=== PATIENT | female | born 1990 | race Caucasian/White ===

== ENCOUNTER 2019-03-25 15:09 | Emergency (ER) | payer MEDICAID, SELFPAY ==
--- NOTE | 2019-03-25 15:18 | ED.GENADULT ---
HPI - General Adult General Chief complaint: Dental/Oral Stated complaint: Toothache Time Seen by Provider: 03/25/19 15:26 Source: patient and family Mode of arrival: ambulatory Limitations: no limitations History of Present Illness HPI narrative: Patient's had onset of left lower second tooth pain that began last night. It is been sensitive to heat and cold. Is been no drainage from around the tooth. The gum tissue is appeared swollen to her. She has not had any swelling of the cheek. She denies any ear pain or drainage from the ears. She had no nasal drainage or sore throat. She has had no nausea, no vomiting, no diarrhea. She is taken [id number] Aleve without improvement and ibuprofen without improvement. She has not scheduled a dental appointment yet. She has had no cough. She has had no urinary symptoms. She has had no known exposure to anyone with respiratory infections that she is aware of. Related Data Allergies Allergy/AdvReac Type Severity Reaction Status Date / Time bee venom protein (honey bee) Allergy Unknown Swelling Verified 03/25/19 15:14 corn Allergy Unknown Rash Verified 03/25/19 15:14 Review of Systems Review of Systems: Narrative: CONSTITUTIONAL: Denies fever, chills, or sweats. Noncontributory except as pertains to the past medical history and the history of present illness. EYES: Denies visual changes, redness, or discharge. ENT: Denies rhinorrhea, congestion, sore throat, or otalgia. CARDIOVASCULAR: Denies chest pain, palpitations, or edema. RESPIRATORY: Denies cough or dyspnea. GASTROINTESTINAL: Denies abdominal pain, nausea, vomiting, or diarrhea. GENITOURINARY: Denies dysuria or hematuria. SKIN: Denies rash or itching. MUSCULOSKELETAL: Denies back pain, joint pain, or myalgia. NEUROLOGIC: Denies headache, numbness, or weakness. PSYCHIATRIC: Denies anxiety or depression. [facility] Social History Social History Smoking packs per day: 1 Smoking cigarettes per day: 20.0 Years smoked: 14 Smoking pack-years: 14.00 Smoking status: Current every day smoker Tobacco type: cigarettes Second hand tobacco smoke exposure: Yes Alcohol intake: current Substance use: never Gender identity (if verbalized by the patient): Female Comments At time of signature, I have reviewed and agree with nursing past medical, surgical, social, and family history.Please see nursing chart for further information. There is no relevant family history pertinent to the presenting complaint. Exam Narrative: Exam Narrative: GENERAL: Well-appearing, well-nourished, and in no acute distress. HEAD: Normocephalic, atraumatic. EYES: PERRLA and EOMI. EARS: TM's clear bilaterally and the canals are clear. NOSE: Nares clear, no rhinorrhea or epistaxis. THROAT:Mucous membranes moist.Oropharynx normal without erythema or exudates.There are no TMJ clicks, no palpation tenderness of the TMJs.No lesions in the floor of the mouth. There is no clicking, locking, or popping of the TMJs. There is full excursion of the TMJs. Patient has carious teeth the left lower second molar is partially decayed and is tender to percussion. The other teeth are nontender to percussion. The gums surrounding that tooth is mildly erythematous, mildly swollen, but not draining. The rest of the gum tissue appears normal. NECK: Supple. No adenopathy of the neck, supraclavicular, axillary, inguinal areas RESPIRATORY: No respiratory distress. Airway patent. Respirations non-labored. Clear to auscultation. There are no wheezes, no rales, no retractions, and no use accessory muscle respirations. Patient is not cyanotic and not dyspneic. HEART: Regular rate and rhythm. No murmur heard. Normal peripheral pulses. ABDOMEN: Soft, nontender, nondistended, normal active bowel sounds.No masses. No rebound or guarding, No organomegaly. There is no CVA pain. No pain in McBurney's point. Patient has a negativ
[2019-03-25 15:19] VITALS: BP 138/89; PULSE 109; RESP 18; TEMP 36.9; O2SAT 100
== END 2019-03-25 15:40 | disposition home or self-care (01) ==
PROVIDERS: Emergency Provider Family Medicine
DX: K08.89 Other specified disorders of teeth and supporting structures (principal); F17.210 Nicotine dependence, cigarettes, uncomplicated
CPT/HCPCS: 99213; G0463

== ENCOUNTER 2019-04-21 19:25 | Emergency (ER) | payer MEDICAID, SELFPAY ==
[2019-04-21 19:33] VITALS: BP 131/87; PULSE 99; RESP 16; O2SAT 98
--- NOTE | 2019-04-21 19:39 | ED.DENTAL ---
HPI - Dental/Oral General Chief complaint: Dental/Oral Stated complaint: Toothache Time Seen by Provider: 04/21/19 19:39 Source: patient and RN notes reviewed Mode of arrival: ambulatory Limitations: no limitations History of Present Illness Complaint: tooth pain Location: Tooth # (19) Related Data Allergies Allergy/AdvReac Type Severity Reaction Status Date / Time bee venom protein (honey bee) Allergy Mild Swelling Verified 04/21/19 19:30 corn Allergy Mild Rash Verified 04/21/19 19:30 Review of Systems Review of Systems: Narrative: CONSTITUTIONAL: Denies malaise, chills, sweats, or fever. EYES: Denies visual changes, redness, or discharge. ENT: Denies rhinorrhea, congestion, sinus pain, otalgia or sore throat. Reports left lower dental pain CARDIOVASCULAR: Denies chest pain, palpitations, or edema. RESPIRATORY: Denies cough or dyspnea. GASTROINTESTINAL: Denies abdominal pain, nausea, vomiting SKIN: Denies facial swelling MUSCULOSKELETAL: Denies myalgia. NEUROLOGIC: Denies headache. All systems reviewed & are unremarkable except as noted in HPI and below PMFSH Social History Social History Smoking packs per day: 1 Smoking cigarettes per day: 20.0 Years smoked: 14 Smoking pack-years: 14.00 Smoking status: Current every day smoker Tobacco type: cigarettes Second hand tobacco smoke exposure: Yes Alcohol intake: current Substance use: never Gender identity (if verbalized by the patient): Female Comments At time of signature, agree with nursing past medical, surgical, social and family history. There is no relevant family history pertinent to the presenting complaint Exam Narrative: Exam Narrative: GENERAL: Well-appearing, well-nourished, and in no acute distress. HEAD: Normocephalic, atraumatic. EYES: PERRLA, conjunctivae clear, and EOMI. No nystagmus. ENT: Nares clear, no rhinorrhea or epistaxis. Mucous membranes moist. Oropharynx without erythema edema, or lesions. No drooling noted. Many missing teeth, broken teeth, caries tooth #19 broken without surrounding edema or erythema. No periapical abscess noted, no jaw facial swelling noted NECK: Supple. CHEST: No respiratory distress. Speaks in full sentences. HEART: Regular rate and rhythm. SKIN: Warm, dry NEURO: Alert and oriented x3 PSYCH: Normal mood and affect Course Course Emergency Course: Patient is aware of diagnosis, understands and agrees to treatment plan. Anticipatory guidance given. Patient agrees to follow-up as directed and is aware of reasons to seek care at the emergency department. Portions of this record may have been created with voice recognition software Vital Signs Vital signs: Vital Signs Pulse Rate 99 04/21/19 19:33 Respiratory Rate 16 04/21/19 19:33 Blood Pressure 131/87 04/21/19 19:33 Pulse Oximetry 98 04/21/19 19:33 Pulse Rate 99 04/21/19 19:33 Respiratory Rate 16 04/21/19 19:33 Blood Pressure 131/87 04/21/19 19:33 Pulse Oximetry 98 04/21/19 19:33 Reviewed. Patient has been instructed to follow up with her primary care provider within the next week regarding her elevated blood pressure today. MDM - Dental/Oral MDM Narrative Medical decision making narrative: Patients pain and complaint coupled with physical findings are consistant with dentalgia. There are no focal signs of space occupying lesions that are compromising to the airway; no dysphagia, odynophagia, dysphonia, or dyspnea. No uvular deviation or soft palate edema. Patient is non-toxic appearing. The floor of the mouth is soft with no signs of Momo's Angina; no induration below mandible, no neck pain. Patient is without trismus or drooling and able to swallow secretions. Patient is felt appropriate for discharge home with dental follow up. Critical Care Time Critical Care Time Critical Care Time: No Discharge Plan Discharge Clinical Impression: Tooth
== END 2019-04-21 19:54 | disposition home or self-care (01) ==
PROVIDERS: Emergency Provider Nurse Practitioner
DX: K08.89 Other specified disorders of teeth and supporting structures (principal); F17.210 Nicotine dependence, cigarettes, uncomplicated
CPT/HCPCS: 99213; G0463

== ENCOUNTER 2019-11-07 15:39 | Emergency (ER) | payer OTHER, SELFPAY ==
--- NOTE | 2019-11-07 15:41 | ED.EXTPRO ---
HPI - Extremity Problem General Chief complaint: Extremity Problem,Nontraumatic Stated complaint: right wrist pain Time Seen by Provider: 11/07/19 15:50 Source: patient and RN notes reviewed Mode of arrival: ambulatory Limitations: no limitations History of Present Illness HPI Narrative: 29-year-old female presents with concern for pain to the right wrist extending up to the elbow, exacerbated by gripping, movement. 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 She denies injury, trauma. 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 She denies redness, swelling, bruising Complaint: extremity pain Related Data Allergies Allergy/AdvReac Type Severity Reaction Status Date / Time bee venom protein (honey bee) Allergy Mild Swelling Verified 11/07/19 15:43 corn Allergy Mild Rash Verified 11/07/19 15:43 Review of Systems Review of Systems: Narrative: CONSTITUTIONAL: Denies malaise, chills, sweats, or fever. ARDIOVASCULAR: Denies chest pain, palpitations, or edema. RESPIRATORY: Denies cough or dyspnea. SKIN: Denies bruising, redness, swelling MUSCULOSKELETAL: Reports right wrist, elbow pain, reports decreased catering server strength NEUROLOGIC: Denies numbness, weakness All systems reviewed & are unremarkable except as noted in HPI and below PMFSH Social History Social History Smoking packs per day: 1 Smoking cigarettes per day: 20.0 Years smoked: 14 Smoking pack-years: 14.00 Smoking status: Current every day smoker Tobacco type: cigarettes Second hand tobacco smoke exposure: Yes Alcohol intake: current Substance use: never Gender identity (if verbalized by the patient): Female Comments At time of signature, agree with nursing past medical, surgical, social and family history. There is no relevant family history pertinent to the presenting complaint Exam Narrative: Exam Narrative: GENERAL: Well-appearing, well-nourished, and in no acute distress. HEAD: Normocephalic, atraumatic. EYES: PERRLA, conjunctivae clear NECK: Supple. CHEST: Speaks in full sentences. No respiratory distress. HEART: Regular rate and rhythm. Normal and equal peripheral pulses. EXTREMITIES: Right elbow, wrist, digits have normal sensation, normal range of motion. No edema or ecchymosis. 5/5 strength with elbow and wrist flexion and extension. Decreased right catering server strength. Normal sensation with sensitivity to light touch and pain. No open wounds, no skin tenting, no devitalized tissue or atrophy, no trophic changes, no obvious deformity, alignment normal, no point tenderness, nearby joints and structures intact. Distal pulses palpable and equal bilaterally, skin warm, dry, pink. Capillary refill less than 3 seconds. SKIN: Warm, dry, no rash. NEURO: Alert and oriented x3. PSYCH: Normal mood and affect Course Course Emergency Course: Patient is aware of diagnosis, understands and agrees to treatment plan. Anticipatory guidance given. Patient agrees to follow-up as directed and is aware of reasons to seek care at the emergency department. Portions of this record may have been created with voice recognition software Vital Signs Vital signs: Vital Signs Temperature 98.7 F 11/07/19 15:47 Pulse Rate 110 H 11/07/19 15:47 Respiratory Rate 16 11/07/19 15:47 Blood Pressure 118/81 11/07/19 15:47 Pulse Oximetry 99 11/07/19 15:47 Temperature 98.7 F 11/07/19 15:47 Pulse Rate 110 H 11/07/19 15:47 Respiratory Rate 16 11/07/19 15:47 Blood Pressure 118/81 11/07/19 15:47 Pulse Oximetry 99 11/07/19 15:47 Reviewed. MDM - Extremity (Nontraumatic) MDM Narrative Medical decision making narrative: Patients pain is consistent with musculoskeletal etiology. No signs of neurological or vascular compromise on exam. Compartments and tissues are soft without signs of compartment syndrome. Pain is felt appropriate for further evaluation on an outpatient basis. Scott
[2019-11-07 15:47] VITALS: BP 118/81; PULSE 110; RESP 16; TEMP 37.1; O2SAT 99
== END 2019-11-07 16:07 | disposition home or self-care (01) ==
PROVIDERS: Emergency Provider Nurse Practitioner
DX: M77.11 Lateral epicondylitis, right elbow (principal); F17.210 Nicotine dependence, cigarettes, uncomplicated
CPT/HCPCS: 99213; G0463

== ENCOUNTER 2019-12-30 17:55 | Emergency (ER) | payer OTHER, SELFPAY ==
[2019-12-30 18:00] VITALS: BP 110/73; PULSE 116; RESP 18; TEMP 37.4; O2SAT 100
--- NOTE | 2019-12-30 18:15 | ED.FEMALEGU ---
HPI - Female Genitourinary General Chief complaint: Urogenital-Female Stated complaint: Blood In Urine Time Seen by Provider: 12/30/19 18:16 Source: patient Mode of arrival: ambulatory Limitations: no limitations History of Present Illness HPI Narrative: Dominique Vazquez is a 29 yo female with tendonitis, ovarian cyst, who comes with blood in her urine that started this AM. No pain, no odor, stated had a little burning on the way to work and noted that when she went to the bathroom the blood is definitely from her urethra Related Data Home Medications Medication Instructions Recorded Confirmed celecoxib 200 mg PO DAILY 12/30/19 12/30/19 fluconazole 200 mg PO DIRECTED 12/30/19 12/30/19 ketoconazole 2 applic TOPICAL BID 12/30/19 12/30/19 Allergies Allergy/AdvReac Type Severity Reaction Status Date / Time bee venom protein (honey bee) Allergy Mild Swelling Verified 12/30/19 18:01 corn Allergy Mild Rash Verified 12/30/19 18:01 Review of Systems Review of Systems: Narrative: CONSTITUTIONAL: Denies fever, chills, sweats. EYES: Denies visual changes, redness, discharge. ENT: Denies rhinorrhea, congestion, sore throat, otalgia. CARDIOVASCULAR: Denies chest pain, palpitations, edema. RESPIRATORY: Denies dyspnea, wheezing, cough GASTROINTESTINAL: Denies abdominal pain, nausea, vomiting, diarrhea. GENITOURINARY: Denies dysuria, has hematuria, no abnormal discharge SKIN: Denies rash or itching. NEUROLOGIC: Denies numbness, or focal weakness. PSYCHIATRIC: Denies anxiety or depression. [facility] Past Medical History Medical History (Updated 12/30/19 @ 18:25 by Sunshine Braden CNP) ADHD Depression History of blood transfusion IBS (irritable bowel syndrome) Kidney stones Ovarian cyst hemorrhage UTI (urinary tract infection) Surgical History Surgical History History of section History of tubal ligation Social History Social History Smoking packs per day: 1 Smoking cigarettes per day: 20.0 Years smoked: 14 Smoking pack-years: 14.00 Smoking status: Current every day smoker Tobacco type: cigarettes Second hand tobacco smoke exposure: Yes Alcohol intake: current Substance use: never Gender identity (if verbalized by the patient): Female Comments At time of signature, I agree with nursing past medical, surgical, social and family history. There is no relevant family history pertinent to the presenting complaint. Exam Narrative: Exam Narrative: GENERAL: This is a well-nourished, well-developed patient, in mild distress. HEAD: normocephalic, atraumatic. EYES: Sclera clear/white. Vision is grossly intact. EARS: External ears normal, Hearing grossly intact. NOSE: External nose normal without nasal discharge, nares without redness, no rhinorrhea. THROAT: Mucous membranes moist, NECK: Neck supple, CARDIOVASCULAR: Regular rate and rhythm without murmurs, gallops, or rubs. RESPIRATORY: Clear to auscultation. Breath sounds equal bilaterally. No wheezes, rales, or rhonchi. GASTROINTESTINAL: Abdomen soft, SKIN: warm, intact with no suspicious lesions or rash, good texture and turgor. NEURO: awake, alert, and oriented to person, place and time. There were no obvious focal neurologic abnormalities. Steady gait EXTREMITIES: Normal range of motion. BACK: Nontender without deformity Course Course Emergency Course: This morning woke up and was feeling fine but admitted a couple hours started having some burning in the urethral area and there is some blood in her urine she then developed frequency over the afternoon and came here for treatment Urine dipstick was positive for blood and for leukocyte esterase-started on Keflex and told patient to hydrate well Vital Signs Vital signs: Vital Signs Temperature 99.3 F 12/30/19 18:00 Pulse Rate 116 H 12/30/19 18:00 Respiratory
== END 2019-12-30 18:30 | disposition home or self-care (01) ==
PROVIDERS: Emergency Provider Nurse Practitioner
DX: N30.01 Acute cystitis with hematuria (principal); F17.210 Nicotine dependence, cigarettes, uncomplicated
CPT/HCPCS: 81003; 87086; 87088; 99213; G0463

== ENCOUNTER 2020-02-01 00:42 | Outpatient (CLI) | payer OTHER, SELFPAY ==
[2020-02-01 18:51] LABS: SARS-CoV-2 RNA PCR Negative
== END 2020-02-01 00:43 | disposition home or self-care (01) ==
LOC: ANHCOVIDDT 00:44
PROVIDERS: Visit Provider Obstetrics & Gynecology
DX: Z01.818 Encounter for other preprocedural examination (principal); Z20.828 Contact with and (suspected) exposure to other viral communicable diseases
CPT/HCPCS: 87635; C9803; U0003

== ENCOUNTER 2020-02-01 15:13 | Outpatient (CLI) | payer OTHER, SELFPAY | END 2020-02-01 15:14 | disposition home or self-care (01) | LOC: ANHSURGERY 15:18 | PROVIDERS: Visit Provider Obstetrics & Gynecology | DX: Z01.818 Encounter for other preprocedural examination (principal); R10.2 Pelvic and perineal pain | CPT/HCPCS: 36415; 86850; 86900; 86901; 87635; C9803; U0003 ==

== ENCOUNTER 2020-02-03 01:19 | Day surgery (SDC) | payer OTHER, SELFPAY ==
[2020-01-31 13:38] VITALS: BMI 27.9
[2020-02-03] VITALS (7 sets, daily range): BP systolic 100–139; BP diastolic 49–86; PULSE 68–132; RESP 14–20; TEMP 36.4–36.6; O2SAT 97–100
--- NOTE | 2020-02-03 08:16 | WPDANESEPP ---
Anes - Eval Pre Procedure Procedure: Operation Date: 02/03/20 14:00 Proposed Procedures p Diagnostic Laparoscopy - Julianne Ellis MD Date/Time: 02/03/20 08:16 Pre Op Diagnosis: pelvic pain Patient Data Age: 29 Gender: F Height: 1.63 m Weight: 73.94 kg Allergies Allergy/AdvReac Type Severity Reaction Status Date / Time bee venom protein (honey bee) Allergy Mild Swelling Verified 01/31/20 12:01 corn Allergy Unknown Rash/THROAT Verified 01/31/20 12:01 SWELLING Home Medications Medication Instructions Recorded Confirmed Type hydrocodone-acetaminophen 1 tablet PO Q4-6H PRN 01/31/20 01/31/20 History tramadol 50 mg PO PRN PRN 01/31/20 01/31/20 History Patient hx anesthesia problems: none Family hx anesthesia problems: none PMFSH Past Medical History Medical History ADHD Depression History of blood transfusion IBS (irritable bowel syndrome) Kidney stones Ovarian cyst hemorrhage UTI (urinary tract infection) Surgical History Surgical History History of section History of tubal ligation Social History Social History Smoking packs per day: 1 Smoking cigarettes per day: 20.0 Years smoked: 14 Smoking pack-years: 14.00 Smoking status: Current every day smoker Tobacco type: cigarettes Second hand tobacco smoke exposure: Yes Alcohol intake: current Substance use: current Substance use type: marijuana Living arrangements: with family Gender identity (if verbalized by the patient): Female Spiritual care concerns: No Exam Day of Procedure 02/03/20 08:16
[2020-02-03] MEDS: LACTATED RINGERS 1,000 ML 30 ML IV CONT ×2 (14:05→16:33)
[2020-02-03] MEDS: ACETAMINOPHEN 500 MG TABLET 1000 MG PO (14:05)
[2020-02-03] MEDS: KETOROLAC 15 MG/ML VIAL (*BKC) IV PUSH (14:05)
[2020-02-03] MEDS: fentaNYL CITRATE INJ (*CRX) 100 MCG/2 ML VIAL 25 MCG IV PUSH ×9 (14:05→17:04)
--- NOTE | 2020-02-03 14:15 | WPDANESEFPP ---
Anes - Eval Final PreProcedure Day of Procedure 02/03/20 14:15 Patient weight: overweight Heart: regular rate and rhythm Lungs: clear to auscultation and normal air movement Airway: Mallampati scale class II Neurological: alert and oriented Last oral intake: >/= 8 hours ASA classification: III Emergent: no Anesthetic plan: proceed Anesthesia type and monitoring: general ETT Informed Consent: The patient's anesthetic plan and its attendant risks and benefits were discussed with the patient/family/POA. Questions were solicited and answers provided to the satisfaction of the patient/family/POA.
--- NOTE | 2020-02-03 14:42 | WPDHPUPDATE1 ---
History and Physical Update Update Date/Time: 02/03/20 14:42 History and Physical has been reviewed, including an updated exam of the patient. There are NO changes in the patient's condition. Risks, benefits, and alternatives have been discussed and questions answered. Patient agrees to proceed with procedure.
--- NOTE | 2020-02-03 16:21 | P.OP_ITS ---
Procedure Note - Detailed Date of procedure: 02/03/20 Pre-op diagnosis: pelvic pain Procedure performed: Diagnostic laparoscopy, left ovarian cystectomy, right salpingo-oophorectomy. Description of procedure: The patient was taken the operating room. She was prepped and draped in the dorsal lithotomy position after induction of general anesthesia. A 5 mm left upper quadrant incision was made in the abdominal skin with a scalpel. A 5 mm trocar was inserted the intra-abdominal cavity under direct visualization of the scope. A 11 mm left lower quadrant incision was made with the scalp on the abdominal skin and a 11 mm trocar was inserted the intra-abdominal cavity under direct visualization of the scope. A 5 mm infraumbilical incision was made with scalpel and a 5 mm trocar was inserted into the intra-abdominal cavity under direct visualization of the scope. The pelvis examined. Right salpingo-oophorectomy was performed. The infundibulopelvic ligament was cauterized with bipolar cautery and transected. The para ovarian tissue was cauterized transected with bipolar cautery and scissors. The suspensory ligament the ovary cauterized transected in the same fashion as well as the fallopian tube. The ovary and tube were amputated and placed in endobag and taken at the left lower quadrant trocar site. Left ovarian cystectomy was performed. Incision was made in the cyst. The cyst capsule was peeled out. The cut surfaces were cauterized. Hematoma derm was placed inside the cyst cavity. The left lower quadrant trocar site was closed with an 0 Vicryl using a Davion-Jolanta Endo Close. The pelvis was irrigated with copious amounts of normal saline. The pneumoperitoneum was reduced. The trocars were removed. The patient was taken recovery room stable condition. Sponge lap and needle counts were correct x2. Anesthesia: GETA Surgeon: Julianne Ellis MD Estimated blood loss (mL): 20 Drains: No Packing: No Complications: No immediate complications Condition: stable Disposition: PACU Findings: Normal appearing right ovary into. Cystic left ovary. Normal- appearing uterus
[2020-02-03] MEDS: oxyCODONE HCL (*CRX) 5 MG TAB IR PO (17:34)
== END 2020-02-03 18:00 | disposition home or self-care (01) ==
PROVIDERS: Visit Provider Obstetrics & Gynecology
PROC: (CPT 49320; principal; 2020-02-03 14:00)
DX: R10.2 Pelvic and perineal pain (principal); N83.12 Corpus luteum cyst of left ovary; N83.8 Other noninflammatory disorders of ovary, fallopian tube and broad ligament; F17.210 Nicotine dependence, cigarettes, uncomplicated; F12.90 Cannabis use, unspecified, uncomplicated
CPT/HCPCS: 58661; 58662; 88305; A9270; J0330; J1100; J1170; J1885; J2250; J2405; J2704; J3010; J7120

== ENCOUNTER 2020-05-26 10:27 | Emergency (ER) | payer OTHER, SELFPAY ==
[2020-05-26 10:46] VITALS: BP 117/78; PULSE 106; RESP 16; TEMP 36.2; O2SAT 98
--- NOTE | 2020-05-26 10:51 | ED.NAVMDI ---
HPI - Nausea/Vomiting/Diarrhea General Chief complaint: Nausea/Vomiting/Diarrhea Stated complaint: vomiting/diarrhea Time Seen by Provider: 05/26/20 10:51 Source: patient, RN notes reviewed and old records reviewed Mode of arrival: ambulatory Limitations: no limitations History of Present Illness HPI Narrative: 29 year old female who presents to express care with complaints of nausea with vomiting and diarrhea which started on Friday 4 days ago. Patient does have some right upper quadrant abdominal discomfort and states pain to mid abdomen region which started after vomiting. Patient states that she vomited this morning and has also had watery foul smelling diarrhea stools today. denies any fevers since Friday evening which was 101.2 F. Patient states no burning or pain with urination, denies any suprapubic pain or any flank pain.She reports that she has been drinking Pedialyte and eating popsicles, had a few bites of soup since Friday, does feel a little bit better today. Patient states that she does have history of IBS. MD elicited complaint: nausea, vomiting and diarrhea Onset (ago): day(s) (4) Description of vomiting: watery and bilious Description of diarrhea: watery and other (foul smelling) Associated nausea: Yes Associated abdominal pain: Yes Location of pain: RUQ and other (mid abdomen after vomiting or after diarrhea) Radiation: RUQ and does not radiate Pain consistency: intermittent Pain scale (0-10): 5 Quality: aching Exacerbating factors: bowel movement and vomiting Associated symptoms: fever/chills and loss of appetite Treatment prior to arrival: other (nprosyn) Related Data Allergies Allergy/AdvReac Type Severity Reaction Status Date / Time bee venom protein (honey bee) Allergy Mild Swelling Verified 02/03/20 14:11 corn Allergy Unknown Rash/THROAT Verified 02/03/20 14:11 SWELLING Review of Systems Review of Systems: Narrative: CONSTITUTIONAL:Positive for fever, chills, or sweats on Friday none since EYES: Denies visual changes, redness, or discharge. ENT: Denies rhinorrhea, congestion, sore throat, or otalgia. CARDIOVASCULAR: Denies chest pain, palpitations, or edema. RESPIRATORY: Denies cough or dyspnea. GASTROINTESTINAL: Positive for right upper quadrant and mid abdominal pain, nausea, vomiting, or diarrhea, denies any burning with urination or any flank pain.. GENITOURINARY: Denies dysuria or hematuria. SKIN: Denies rash or itching. MUSCULOSKELETAL: Denies back pain, joint pain, or myalgia. NEUROLOGIC: Denies headache, numbness, or weakness. PSYCHIATRIC: Positive history of anxiety or depression. All systems reviewed & are unremarkable except as noted in HPI and below PMFSH Past Medical History Medical History (Updated 05/27/20 @ 00:00 by Kelly Orellana) ADHD Depression History of blood transfusion IBS (irritable bowel syndrome) Kidney stones Ovarian cyst hemorrhage UTI (urinary tract infection) Surgical History Surgical History (Updated 05/27/20 @ 15:31 by Jeri Butler NP) History of section History of right salpingo-oophorectomy History of tubal ligation Hx of hand surgery tendon repair left hand Family History Family History (Updated 05/27/20 @ 15:28 by Jeri Butler NP) Grandparent Cancer lung grandfather Social History Social History Smoking packs per day: 1 Smoking cigarettes per day: 20.0 Years smoked: 14 Smoking pack-years: 14.00 Smoking status: Current every day smoker Tobacco type: cigarettes Second hand tobacco smoke exposure: Yes Alcohol intake: current Substance use: current Substance use type: marijuana Gender identity (if verbalized by the patient): Female Spiritual care concerns: No Comments At time of signature, agree with nursing past medical, surgical, social and family history. There is no relevant family history pertinent to the presenti
== END 2020-05-26 12:11 | disposition home or self-care (01) ==
PROVIDERS: Emergency Provider Registered Nurse
DX: K21.9 Gastro-esophageal reflux disease without esophagitis (principal); Z20.822 Contact with and (suspected) exposure to COVID-19; F17.210 Nicotine dependence, cigarettes, uncomplicated
CPT/HCPCS: 87081; 87426; 87804; 87880; 99213; C9803; G0463

== ENCOUNTER 2020-07-01 12:44 | Emergency (ER) | payer OTHER, SELFPAY ==
--- NOTE | ~2020-07-01 | US_ITS ---
EXAMINATION: US pelvic complete w TV DATE: 07/01/2020 16:45 INDICATION: Left ovarian cyst. TECHNIQUE: Multiple transabdominal and transvaginal sonographic images of the pelvis were obtained. COMPARISON: CT abdomen and pelvis 07/01/2020 FINDINGS: TRANSABDOMINAL ULTRASOUND: The uterus measures 10.6 x 6.3 x 4.2 cm. There is no free fluid in the pelvis. TRANSVAGINAL ULTRASOUND: The endometrial complex measures 11 mm in thickness. The right ovary is absent. The left ovary measur es 3.9 x 4.5 x 3.9 cm. There is vascular flow in left ovary. IMPRESSION: 1. Enlarged left ovary with vascular flow. Reviewed, dictated and finalized at location A.
--- NOTE | ~2020-07-01 | CT_ITS ---
EXAMINATION: CT abdomen pelvis w con DATE: 07/01/2020 14:26 INDICATION: Left lower quadrant abdominal pain. TECHNIQUE: Computed tomography (CT) of the abdomen and pelvis was performed with 100 mL Omnipaque 350 intravenous contrast. Automated exposure control and iterative reconstruction technique were employe d. The dose-length product was 360.95 mGy-cm. COMPARISON: CT abdomen and pelvis 01/02/2019 FINDINGS: The visualized portions of the lung bases demonstrate minimal atelectasis. No pleural effus ion. The heart size is normal. No pericardial effusion. The liver, gallbladder, spleen, pancreas, and adrenal glands are normal. There are cysts in right kidney measuring up to 6 mm. There is a 3 mm sto ne in left kidney. There is a 3.9 cm mass in left ovary. There are no dilated loops of bowel. The pete endix is normal. There are no pathologically enlarged lymph nodes. There is trace pelvic ascites. The bones are unremarkable. IMPRESSION: 1. 3.9 cm mass in left ovary, most likely a hemorrhagic cyst. Pelvis ultrasound is recommended. Reviewed, dictated and finalized at location A.
[2020-07-01 12:47] VITALS: BP 118/99; PULSE 125; RESP 20; TEMP 36.7; O2SAT 100
--- NOTE | 2020-07-01 13:14 | ED.ABDPAIN ---
HPI - Abdominal Pain General Chief Complaint: Abdominal Pain Stated Complaint: L ABD PAIN Time Seen by Provider: 07/01/20 12:55 Source: patient and RN notes reviewed Mode of arrival: ambulatory Limitations: no limitations History of Present Illness HPI narrative: Patient is 29 years old white female presents with left lower quadrant pain started 3 days ago, constant, worse with movement. Patient denies any fever, chills, nausea, vomiting, diarrhea, constipation. Last menstrual. Was 2 days ago. Patient is 4 para 3 1. History of cystic ovarian disease, status post right oophorectomy January 2020. Patient reported having the same kind of pain as she had in January for the right ovarian cyst. Patient is a smoker, drinks occasionally, uses marijuana intermittently. Patient denies radiation of pain, no Covid infection or vaccine. Related Data Allergies Allergy/AdvReac Type Severity Reaction Status Date / Time bee venom protein (honey bee) Allergy Mild Swelling Verified 02/03/20 14:11 corn Allergy Unknown Rash/THROAT Verified 02/03/20 14:11 SWELLING Review of Systems Review of Systems: Narrative: CONSTITUTIONAL: Denies fever, chills, or sweats. EYES: Denies visual changes, redness, or discharge. ENT: Denies rhinorrhea, congestion, sore throat, or otalgia. CARDIOVASCULAR: Denies chest pain, palpitations, or edema. RESPIRATORY: Denies cough or dyspnea. GASTROINTESTINAL: Denies abdominal pain, nausea, vomiting, or diarrhea. GENITOURINARY: Denies dysuria or hematuria. SKIN: Denies rash or itching. MUSCULOSKELETAL: Denies back pain, joint pain, or myalgia. NEUROLOGIC: Denies headache, numbness, or weakness. PSYCHIATRIC: Denies anxiety or depression. [facility] Past Medical History Medical History ADHD Depression History of blood transfusion IBS (irritable bowel syndrome) Kidney stones Ovarian cyst hemorrhage UTI (urinary tract infection) Surgical History Surgical History History of section History of right salpingo-oophorectomy History of tubal ligation Hx of hand surgery tendon repair left hand Family History Family History Grandparent Cancer lung grandfather Social History Social History Smoking packs per day: 1 Smoking cigarettes per day: 20.0 Years smoked: 14 Smoking pack-years: 14.00 Smoking status: Current every day smoker Tobacco type: cigarettes Second hand tobacco smoke exposure: Yes Alcohol intake: current Substance use: current Substance use type: marijuana Gender identity (if verbalized by the patient): Female Spiritual care concerns: No Exam Narrative: Exam Narrative: General appearance: Well-developed, well-nourished Skin: Normal color Head: Normocephalic, nontraumatic Eyes: Clear conjunctiva ENT: Oropharynx normal, ears normal, nose normal Neck: Supple, nontender Chest and respiratory: Airway patent, no respiratory distress, no accessory muscle use Heart: Regular rate/rhythm Abdomen: Soft, moderate tenderness to left lower quadrant,, no organomegaly, quiet bowel sounds Vascular: Normal peripheral pulses, normal capillary refill. Musculoskeletal: Normal range of motion, nontender back Neurologic: Alert and oriented ?3, CORPORATE COORDINATOR is normal as tested, no gross motor deficit Course Course Emergency Course: Stable Reevaluation(s) Reevaluation #1: Patient feeling okay, declined to be hospitalized and telling me that she is planning to call Dr. Ellis on Mon
[2020-07-01 13:27] LABS: Basophils Percent Auto 0.4 % (0.2-1.2); Eosinophils Absolute Auto 0.1 K/mm3 (0-0.3); Eosinophils Percent Auto 1.3 % (0-4.4); Hematocrit 43.7 % (37.0-47.0); Hemoglobin 14.5 g/dL (12.0-15.0); Immature Granulocyte Absolute 0.01 K/mm3 (0.00-0.031); Immature Granulocyte Percent A 0.2 % (0-0.5); Lymphocytes Absolute Auto 1.93 K/mm3 (0.9-3.2); Lymphocytes Percent Auto 36.8 % (18.3-44.2); Mean Corpuscular HGB Conc 33.2 g/dl (32-36); Mean Corpuscular Hemoglobin 27.9 pg (26-34); Mean Platelet Volume 9.4 fl (7.4-10.4); Monocytes Absolute Auto 0.5 K/mm3 (0.1-0.6); Monocytes Percent Auto 9.9 % (2.6-8.5); Neutrophils Absolute Auto 2.7 K/mm3 (1.3-6.7); Neutrophils Percent Auto 51.4 % (45.5-73.1); Platelet Count Result 289 k/mm3 (150-375); Red Cell Distribution Width 12.8 % (11.5-14.5); White Blood Count 5.3 K/mm3 (4.5-10.0)
[2020-07-01] MEDS: ONDANSETRON INJ 4 MG/2 ML VIAL IV PUSH (13:35)
[2020-07-01] MEDS: HYDROmorphone HCL INJ (*CRX) 1 MG/ML SYR 0.5 MG IV PUSH (13:35)
[2020-07-01] MEDS: SODIUM CHLORIDE 0.9% IV 1,000 ML 999 ML IV CONT (13:35)
[2020-07-01 13:48] LABS: Add Urine Microscopic? YES; Appearance Urine Cloudy (Clear); Bacteria Urine Trace /hpf; Bilirubin Urine Negative (Negative); Blood Urine Negative (Negative); Color Urine Yellow (Yellow); Glucose Urine UA Negative (Negative); Ketones Urine Negative (Negative); Leukocyte Esterase Ur Negative LEU/UL (Negative); Mucus Urine Rare /lpf; Nitrate Urine Negative (Negative); Protein Urine 1+ mg/dL (Negative); RBC Urine 0-2 /hpf (0-2); Squamous Epithelial Cell Urine Many /hpf (Few); Urobilinogen Urine Negative mg/dL (<2.0); WBC Urine 0-3 /hpf
[2020-07-01 13:59] LABS: Alanine Aminotransferase 26 U/L (4-35); Albumin Level 4.5 g/dL (3.5-5.1); Alkaline Phosphatase 48 U/L (38-126); Anion Gap 8 mmol/L (8-16); Aspartate Amino Transferase 33 U/L (14-36); Bilirubin,Total 0.1 mg/dL (0.2-1.3); Blood Urea Nitrogen 14 mg/dL (7-17); Calcium 9.9 mg/dL (8.4-10.2); Carbon Dioxide 25 mmol/L (22-30); Chloride 108 mmol/L (98-107); Estimated CRCL calculation 87 ml/min; Estimated Glomerular Filt Rate > 60; Glucose 87 mg/dL (65-105); Lipase 34 U/L (23-300); Sodium 141 mmol/L (137-145)
[2020-07-01 14:50] VITALS: BP 142/74; PULSE 88; RESP 16; O2SAT 98
[2020-07-01] MEDS: KETOROLAC 30 MG/ML VIAL (*BKC) (15:45)
[2020-07-01 18:33] VITALS: BP 132/62; PULSE 88; RESP 14; O2SAT 99
== END 2020-07-01 18:33 | disposition home or self-care (01) ==
PROVIDERS: Emergency Provider Emergency Medicine
DX: N83.202 Unspecified ovarian cyst, left side (principal); K58.9 Irritable bowel syndrome, unspecified; Z87.442 Personal history of urinary calculi; Z87.440 Personal history of urinary (tract) infections
CPT/HCPCS: 36415; 74177; 76830; 76856; 80053; 81001; 83690; 85025; 96374; 96375; 99284; J1170; J1885; J2405; J7030; Q9967

== ENCOUNTER 2020-07-04 10:54 | Day surgery (SDC) | payer OTHER, SELFPAY ==
[2020-07-04] VITALS (12 sets, daily range): BP systolic 94–118; BP diastolic 51–75; PULSE 52–115; RESP 12–20; TEMP 36.9–37; O2SAT 94–100
--- NOTE | ~2020-07-04 | US_ITS ---
EXAMINATION: US pelvic complete DATE: 07/04/2020 12:27 INDICATION: Pelvic pain TECHNIQUE: Multiple transabdominal and endovaginal sonographic images of the pelvis were obtained. COMPARISON: None. FINDINGS: The uterus measures 7.6 x 4.6 x 6.2 cm. The endometrial complex measures 7 mm in thickness. The righ t ovary is not visualized and reportedly surgically absent The left ovary measures 5.2 x 3.9 x 4.6 cm . There is a 4.0 x 2.7 x 3.2 cm heterogeneously hypoechoic lesion in the left ovary. Vascular flow wa s seen in the left ovary around the periphery of the lesion which demonstrates no evident internal fl ow on power Doppler which favors complex cyst over solid neoplasm. There is no free fluid in the pelv is. IMPRESSION: 1. Indeterminate 4.0 cm left ovarian lesion with heterogeneous echogenicity but no evident internal f low on color Doppler. Differential would include complex hemorrhagic cyst, endometrioma, dermoid or l ess likely given the lack of evident internal flow ovarian cancer. Would consider either further eval uation with pre and postcontrast MRI or short interval follow-up pelvic ultrasound in 6-12 weeks. Reviewed, dictated and finalized at location A. IMPRESSION: 1. Indeterminate 4.0 cm left ovarian lesion with heterogeneous echogenicity but no evident internal flow on color Doppler. Differential would include complex hemorrhagic cyst, endometrioma, dermoid or less likely given the lack of eviden t internal flow ovarian cancer. Would consider either further evaluation with p re and postcontrast MRI or short interval follow-up pelvic ultrasound in 6-12 w eeks.
[2020-07-04 12:19] LABS: Basophils Percent Auto 0.3 % (0.2-1.2); Eosinophils Absolute Auto 0.1 K/mm3 (0-0.3); Eosinophils Percent Auto 1.1 % (0-4.4); Hematocrit 42.1 % (37.0-47.0); Immature Granulocyte Absolute 0.03 K/mm3 (0.00-0.031); Immature Granulocyte Percent A 0.4 % (0-0.5); Lymphocytes Absolute Auto 1.94 K/mm3 (0.9-3.2); Lymphocytes Percent Auto 25.5 % (18.3-44.2); Mean Corpuscular HGB Conc 33.3 g/dl (32-36); Mean Corpuscular Hemoglobin 27.5 pg (26-34); Mean Corpuscular Volume 82.7 fl (80-100); Mean Platelet Volume 9.3 fl (7.4-10.4); Monocytes Absolute Auto 0.6 K/mm3 (0.1-0.6); Monocytes Percent Auto 7.8 % (2.6-8.5); Neutrophils Absolute Auto 4.9 K/mm3 (1.3-6.7); Neutrophils Percent Auto 64.9 % (45.5-73.1); Platelet Count Result 277 k/mm3 (150-375); Red Blood Count 5.09 M/mm3 (4.2-5.4); Red Cell Distribution Width 12.5 % (11.5-14.5); White Blood Count 7.6 K/mm3 (4.5-10.0)
[2020-07-04 12:29] LABS: Anion Gap 7 mmol/L (8-16); Blood Urea Nitrogen 16 mg/dL (7-17); Carbon Dioxide 23 mmol/L (22-30); Chloride 106 mmol/L (98-107); Estimated CRCL calculation 114 ml/min; Estimated Glomerular Filt Rate > 60; Glucose 120 mg/dL (65-105); Potassium 4.1 mmol/L (3.4-5.0); Sodium 136 mmol/L (137-145)
[2020-07-04 12:32] LABS: INR 0.9; Prothrombin Time 12.6 Seconds (11.1-14.7)
[2020-07-04 12:33] LABS: Partial Thromboplastin Time 24.9 SECONDS (22.3-36.8)
--- NOTE | 2020-07-04 13:04 | ED.ABDPAIN ---
HPI - Abdominal Pain General Chief Complaint: Abdominal Pain Stated Complaint: abd pain, ovarian cyst Time Seen by Provider: 07/04/20 12:59 History of Present Illness HPI narrative: Patient is a 29-year-old female has been having pain from an ovarian cyst. Was diagnosed several days ago. She followed up with gynecology yesterday. There is concerned that patient may be having intermittent torsion since she has had persistent pain despite taking tramadol. No fevers or chills or sweats. She denies vaginal bleeding or vaginal discharge. No urinary symptoms. Patient is scheduled to have surgery today 2 PM. Related Data Home Medications Medication Instructions Recorded Confirmed hydrocodone-acetaminophen 1 tablet PO Q6H PRN 07/03/20 07/03/20 ondansetron 4 mg PO Q6H PRN 07/03/20 07/03/20 Allergies Allergy/AdvReac Type Severity Reaction Status Date / Time bee venom protein (honey bee) Allergy Mild Swelling Verified 07/03/20 15:36 corn Allergy Unknown Rash/THROAT Verified 07/03/20 15:36 SWELLING Review of Systems Review of Systems: All systems reviewed & are unremarkable except as noted in HPI and below Constitutional: Constitutional: Denies chills, Denies fever(s) and Denies weakness ENT: Denies nasal congestion and Denies sore throat Respiratory: Respiratory: Denies cough and Denies dyspnea Gastrointestinal: Gastrointestinal: Reports abdominal pain, Denies nausea and Denies vomiting Genitourinary: Genitourinary: Denies abnormal vaginal bleeding and Denies vaginal discharge PMF Past Medical History Medical History ADHD Depression History of blood transfusion IBS (irritable bowel syndrome) Kidney stones Ovarian cyst hemorrhage UTI (urinary tract infection) Surgical History Surgical History History of section History of right salpingo-oophorectomy History of tubal ligation Hx of hand surgery tendon repair left hand Family History Family History Grandparent Cancer lung grandfather Social History Social History Smoking packs per day: 1 Smoking cigarettes per day: 20.0 Years smoked: 14 Smoking pack-years: 14.00 Smoking status: Current every day smoker Tobacco type: cigarettes Second hand tobacco smoke exposure: Yes Alcohol intake: current Substance use: current Substance use type: marijuana Other substance usage details: SMOKE Last use: 07/03/20 Gender identity (if verbalized by the patient): Female Spiritual care concerns: No Exam Narrative: Exam Narrative: GENERAL: Well-appearing, well-nourished, and in no acute distress. HEAD: Normocephalic, atraumatic. ENT: Mucous membranes moist. CHEST: Clear to auscultation. No respiratory distress. HEART: Regular rate and rhythm. Normal peripheral pulses. ABDOMEN: Soft, tender palpation in the left lower quadrant/suprapubic region., nondistended. EXTREMITIES: Normal range of motion. No edema. SKIN: Warm, dry, no rash. NEURO: Alert and oriented x3. PSYCH: Normal mood and affect. Course Course Emergency Course: Discussed with Dr. Ellis. Reports patient got a pack year and she is stable at this time. Patient has not had anything to eat or drink today. Vital Signs Vital signs: Vital Signs Temperature 98.4 F 07/04/20 11:50 Pulse Rate 115 H 07/04/20 11:50 Respiratory Rate 20 07/04/20 11:50 Blood Pressure 106/71 07/04/20 11:50 Pulse Oximetry 97 07/04/20 11:50 Temperature 98.4 F 07/04/20 11:50 Pulse Rate 115 H 07/04/20 11:50 Respiratory Rate 20 07/04/20 11:50 Blood Pressure 106/71 07/04/20 11:50 Pulse Oximetry 97 07/04/20 11:50 MDM - Abdominal Pain Lab Data Result diagrams: 07/04/20 12:11 07/04/20 12:11 Labs: Lab Result
[2020-07-04 13:20] LABS: Add Urine Microscopic? YES; Appearance Urine Cloudy (Clear); Bacteria Urine Trace /hpf; Bilirubin Urine Negative (Negative); Blood Urine Negative (Negative); Color Urine Yellow (Yellow); Glucose Urine UA Negative (Negative); Ketones Urine Negative (Negative); Leukocyte Esterase Ur Negative LEU/UL (Negative); Mucus Urine Moderate /lpf; Nitrate Urine Negative (Negative); Protein Urine 1+ mg/dL (Negative); RBC Urine 0-2 /hpf (0-2); Specific Grav Ur 1.027 (1.001-1.035); Squamous Epithelial Cell Urine Many /hpf (Few); Urobilinogen Urine Negative mg/dL (<2.0); WBC Urine 0-3 /hpf
--- NOTE | 2020-07-04 13:35 | WPDANESEPPF ---
Anes - Initial Pre Proc Eval Procedure: Operation Date: 07/04/20 14:00 Proposed Procedures p Diagnostic Laparoscopy - Julianne Ellis MD Date/Time: 07/04/20 13:35 Surgeon: Julianne Ellis MD Pre Op Diagnosis: abd pain, ovarian cyst Patient Data Age: 29 Gender: F Height: 1.63 m Weight: 72.7 kg Last Vital Signs Temp 36.9 C 07/04/20 11:50 Pulse 88 07/04/20 13:19 Resp 16 07/04/20 13:19 BP 114/71 07/04/20 13:19 Pulse Ox 96 07/04/20 13:19 Allergies Allergy/AdvReac Type Severity Reaction Status Date / Time bee venom protein (honey bee) Allergy Mild Swelling Verified 07/03/20 15:36 corn Allergy Unknown Rash/THROAT Verified 07/03/20 15:36 SWELLING Home Medications Medication Instructions Recorded Confirmed Type hydrocodone-acetaminophen 1 tablet PO Q6H PRN 07/03/20 07/03/20 History ondansetron 4 mg PO Q6H PRN 07/03/20 07/03/20 History Laboratory Tests 07/04/20 07/04/20 07/04/20 12:11 12:11 12:11 WBC 7.6 K/mm3 K/mm3 (4.5-10.0) RBC 5.09 M/mm3 M/mm3 (4.2-5.4) Hgb 14.0 g/dL g/dL (12.0-15.0) Hct 42.1 % % (37.0-47.0) MCV 82.7 fl fl (80-100) MCH 27.5 pg pg (26-34) MCHC 33.3 g/dl g/dl (32-36) RDW 12.5 % % (11.5-14.5) Plt Count 277 k/mm3 k/mm3 (150-375) MPV 9.3 fl fl (7.4-10.4) Immature Gran % (Auto) 0.4 % % (0-0.5) Neut % (Auto) 64.9 % % (45.5-73.1) Lymph % (Auto) 25.5 % % (18.3-44.2) Ferry % (Auto) 7.8 % % (2.6-8.5) Eos % (Auto) 1.1 % % (0-4.4) Baso % (Auto) 0.3 % % (0.2-1.2) Lymph # (Auto) 1.94 K/mm3 K/mm3 (0.9-3.2) Ferry # (Auto) 0.6 K/mm3 K/mm3 (0.1-0.6) Eos # (Auto) 0.1 K/mm3 K/mm3 (0-0.3) Baso # (Auto) 0.0 K/mm3 K/mm3 (0.0-0.1) Abs Immat Gran (auto) 0.03 K/mm3 K/mm3 (0.00-0.031) Absolute Neuts (auto) 4.9 K/mm3 K/mm3 (1.3-6.7) Absolute Nucleated RBC 0.0 K/mm3 K/mm3 (0.0-0.012) Nucleated RBC % 0.0 % % (0.0-0.2) PT 12.6 Seconds Seconds (11.1-14.7) INR 0.9 APTT 24.9 SECONDS SECONDS (22.3-36.8) Sodium 136 mmol/L L mmol/L (137-145) Potassium 4.1 mmol/L mmol/L (3.4-5.0) Chloride 106 mmol/L mmol/L (98-107) Carbon Dioxide 23 mmol/L mmol/L (22-30) Anion Gap 7 mmol/L L mmol/L (8-16) BUN 16 mg/dL mg/dL (7-17) Creatinine 0.60 mg/dL L mg/dL (0.7-1.0) Estim Creat Clear Calc 114 ml/min ml/min Estimated GFR > 60 (59 - ) Glucose 120 mg/dL H mg/dL (65-105) Calcium 10.0 mg/dL mg/dL (8.4-10.2) Urine Color Urine Appearance Urine pH Ur Specific [place] Urine Protein Urine Glucose (UA) Urine Ketones Ur Blood (Man) Urine Nitrate Urine Bilirubin Urine Urobilinogen Leukocyte Esterase Rfl Urine RBC Urine WBC Ur Squamous Epith Cells Urine Bacteria Urine Mucus 07/04/20 12:51 WBC RBC Hgb Hct MCV MCH MCHC RDW Plt Count MPV Immature Gran % (Auto) Neut % (Auto) Lymph % (Auto) Ferry % (Auto) Eos % (Auto) Baso % (Auto) Lymph # (Auto) Ferry # (Auto) Eos # (Auto) Baso # (Auto) Abs Immat Gran (auto) Absolute Neuts (auto) Absolute Nucleated RBC Nucleated RBC % PT INR APTT Sodium Potassium Chloride Carbon Dioxide Anion Gap BUN Creatinine Estim Creat Clear Calc Estimated GFR Glucose Calcium Urine Color Yellow (Yellow
--- NOTE | 2020-07-04 13:39 | WPDHPUPDATE1 ---
History and Physical Update Update Date/Time: 07/04/20 13:39 History and Physical has been reviewed, including an updated exam of the patient. There are NO changes in the patient's condition. Risks, benefits, and alternatives have been discussed and questions answered. Patient agrees to proceed with procedure.
[2020-07-04] MEDS: LACTATED RINGERS 1,000 ML 30 ML IV CONT ×2 (13:45→15:04)
--- NOTE | 2020-07-04 13:48 | WPDHPUPDATE1 ---
History and Physical Update Update Date/Time: 07/04/20 13:48 Possible left Cystectomy, possible left oophorectomy History and Physical has been reviewed, including an updated exam of the patient. There are NO changes in the patient's condition. Risks, benefits, and alternatives have been discussed and questions answered. Patient agrees to proceed with procedure.
[2020-07-04] MEDS: ACETAMINOPHEN 500 MG TABLET 1000 MG PO (13:49)
[2020-07-04] MEDS: KETOROLAC 15 MG/ML VIAL (*BKC) IV PUSH ×2 (13:51→17:05)
--- NOTE | 2020-07-04 15:04 | P.OP_ITS ---
Procedure Note - Detailed Date of procedure: 07/04/20 Pre-op diagnosis: abd pain, ovarian cyst Procedure performed: Description of procedure: The patient was taken the operating room. She was prepped and draped in the dorsal lithotomy position after induction of general anesthesia. A 5 mm left upper quadrant incision was made in the abdominal skin with a scalpel. A 5 mm trocar was inserted the intra-abdominal cavity under direct visualization of the scope. A 5 mm left lower quadrant incision was made with the scalp on the abdominal skin and a 5 mm trocar was inserted the intra- abdominal cavity under direct visualization of the scope. A 5 mm infraumbilical incision was made with scalpel and a 5 mm trocar was inserted into the intra- abdominal cavity under direct visualization of the scope. The left ovarian cyst was identified. The surface of the cyst was cauterized in circumferential pattern. The cyst dome was resected in that demarcated area with the cautery. The cyst capsule was then peeled out of the inner surface of the cyst. The cyst capsule and cyst wall were taken at the left lower quadrant trocar site. The cut surface/abraded surface of the ovary was cauterized and made hemostatic. The pelvis was irrigated with copious amounts of normal saline. The pneumoperitoneum was reduced. The trocars were removed. The patient was taken recovery room stable condition. Sponge lap and needle counts were correct x2. Anesthesia: GETA Surgeon: Julianne Ellis MD Estimated blood loss (mL): 20 Drains: No Packing: No Complications: No immediate complications Condition: stable Disposition: PACU Findings: Hemorrhagic left ovarian cyst. Absent right ovary, normal-appearing uterus. Normal exam otherwise, the cul-de-sac was free of any endometriosis.
[2020-07-04] MEDS: fentaNYL CITRATE INJ (*CRX) 100 MCG/2 ML VIAL 25 MCG IV PUSH ×5 (15:22→17:05)
[2020-07-04] MEDS: HYDROmorphone HCL INJ (*CRX) 1 MG/ML SYR 0.5 MG IV PUSH ×2 (15:37→15:46)
[2020-07-04] MEDS: ONDANSETRON INJ 4 MG/2 ML VIAL IV PUSH (15:52)
[2020-07-04] MEDS: oxyCODONE HCL (*CRX) 5 MG TAB IR PO (16:25)
--- NOTE | 2020-07-04 17:05 | SUR.PHASEII ---
Angela GALEANO in patient room to give 15mg toradol and 75mg fentanyl. Educated patient on medications and pain control. Patient visibly calmer and relaxed. States pain is improving.
== END 2020-07-04 17:38 | disposition home or self-care (01) ==
LOC: ANHED 13:08 → ANHSURGERY 13:21
PROVIDERS: Emergency Provider Emergency Medicine; PCP Obstetrics & Gynecology; Visit Provider Obstetrics & Gynecology
PROC: (CPT 49320; principal; 2020-07-04 14:00)
DX: N83.12 Corpus luteum cyst of left ovary (principal); N73.6 Female pelvic peritoneal adhesions (postinfective); F17.210 Nicotine dependence, cigarettes, uncomplicated; F12.90 Cannabis use, unspecified, uncomplicated
CPT/HCPCS: 58662; 36415; 76856; 80048; 81001; 81025; 85025; 85610; 85730; 88305; 99285; A9270; J0330; J1100; J1170; J1885; J2250; J2405; J2704; J2710; J3010; J7030; J7120; Q9968

== ENCOUNTER 2020-08-29 17:47 | Emergency (ER) | payer OTHER, SELFPAY ==
--- NOTE | 2020-08-29 18:10 | PC.NURSE ---
patient came to desk and stated im going to [facility] they only have a 30 min wait .
== END 2020-08-29 18:42 | disposition left against medical advice (07) ==
DX: Z53.21 Procedure and treatment not carried out due to patient leaving prior to being seen by health care provider (principal)
CPT/HCPCS: 99199

== ENCOUNTER 2020-09-03 11:46 | Emergency (ER) | payer OTHER, SELFPAY ==
--- NOTE | ~2020-09-03 | CT_ITS ---
EXAMINATION: CT abdomen pelvis w con DATE: 09/03/2020 13:46 INDICATION: Low abdominal pain. TECHNIQUE: Computed tomography (CT) of the abdomen and pelvis was performed with 100 mL Omnipaque 350 intravenous contrast. Automated exposure control and iterative reconstruction technique were employe d. The dose-length product was 379.89 mGy-cm. COMPARISON: CT abdomen and pelvis 07/01/2020, 01/02/19, pelvis ultrasound 07/04/2020 FINDINGS: The visualized portions of the lung bases demonstrate minimal atelectasis. No pleural effus ion. The heart size is normal. No pericardial effusion. The liver, gallbladder, spleen, pancreas, adr enal glands, are normal. There are cysts in right kidney measuring up to 12 mm. There is a 3 mm stone in left kidney. There are no dilated loops of bowel. The appendix is normal. There are no pathologic ally enlarged lymph nodes. There is trace physiologic fluid in the pelvis. There is a 3.8 cm mass in left ovary with attenuation of 21 HU. The bones are unremarkable. IMPRESSION: 1. 3.8 cm left ovarian mass, stable from 07/01/2020 and new from 01/02/19. The differential diagnosis in cludes hemorrhagic cyst, endometrioma, and less likely neoplasm. Pelvis ultrasound is recommended. Reviewed, dictated and finalized at location A. IMPRESSION: 1. 3.8 cm left ovarian mass, stable from 07/01/2020 and new from 01/02/19. The dif ferential diagnosis includes hemorrhagic cyst, endometrioma, and less likely ne oplasm. Pelvis ultrasound is recommended.
--- NOTE | ~2020-09-03 | US_ITS ---
EXAMINATION: US pelvic complete DATE: 09/03/2020 14:30 INDICATION: Pelvic pain Comparison:07/04/2020 TECHNIQUE: Multiple transabdominal and endovaginal sonographic images of the pelvis performed. FINDINGS: The uterus measures 9 x 3.9 x 6 cm. The endometrial complex measures 2.5 mm. The right ovary is surgically absent. The left ovary measures 4.6 x 4.6 x 3.8 cm with normal vascular flow. There is a complex cyst of the left ovary measuring 3.6 x 3.3 x 3.6 cm, likely hemorrhagic cys t. There is no free fluid in the pelvis. There are no abnormal masses seen on either side. IMPRESSION: 1. Complicated cyst of the left ovary measuring up to 3.6 cm, likely hemorrhagic cyst. Reviewed, dictated and finalized at location A. IMPRESSION: 1. Complicated cyst of the left ovary measuring up to 3.6 cm, likely hemorrhagi c cyst.
[2020-09-03 12:10] VITALS: BP 114/69; PULSE 102; RESP 16; TEMP 37.1; O2SAT 99
[2020-09-03 12:40] LABS: Basophils Percent Auto 0.2 % (0.2-1.2); Eosinophils Absolute Auto 0.1 K/mm3 (0-0.3); Hematocrit 40.3 % (37.0-47.0); Hemoglobin 13.1 g/dL (12.0-15.0); Immature Granulocyte Absolute 0.02 K/mm3 (0.00-0.031); Immature Granulocyte Percent A 0.4 % (0-0.5); Lymphocytes Absolute Auto 1.62 K/mm3 (0.9-3.2); Lymphocytes Percent Auto 33.1 % (18.3-44.2); Mean Corpuscular HGB Conc 32.5 g/dl (32-36); Mean Corpuscular Hemoglobin 27.5 pg (26-34); Mean Corpuscular Volume 84.5 fl (80-100); Mean Platelet Volume 9.7 fl (7.4-10.4); Monocytes Absolute Auto 0.4 K/mm3 (0.1-0.6); Monocytes Percent Auto 7.2 % (2.6-8.5); Neutrophils Absolute Auto 2.8 K/mm3 (1.3-6.7); Neutrophils Percent Auto 58.1 % (45.5-73.1); Platelet Count Result 245 k/mm3 (150-375); Red Blood Count 4.77 M/mm3 (4.2-5.4); Red Cell Distribution Width 12.8 % (11.5-14.5); White Blood Count 4.9 K/mm3 (4.5-10.0)
[2020-09-03 12:44] LABS: Add Urine Microscopic? YES; Appearance Urine Cloudy (Clear); Bacteria Urine Trace /hpf; Bilirubin Urine Negative (Negative); Blood Urine 2+ (Negative); Color Urine Yellow (Yellow); Glucose Urine UA Negative (Negative); Ketones Urine Negative (Negative); Leukocyte Esterase Ur Negative LEU/UL (Negative); Mucus Urine Rare /lpf; Nitrate Urine Negative (Negative); Protein Urine Negative (Negative); RBC Urine 0-2 /hpf (0-2); Specific Grav Ur 1.017 (1.001-1.035); Squamous Epithelial Cell Urine Moderate /hpf (Few); Urobilinogen Urine Negative mg/dL (<2.0); WBC Urine 0-3 /hpf
[2020-09-03 12:53] LABS: Alanine Aminotransferase 21 U/L (4-35); Albumin Level 4.2 g/dL (3.5-5.1); Alkaline Phosphatase 48 U/L (38-126); Anion Gap 8 mmol/L (8-16); Aspartate Amino Transferase 28 U/L (14-36); Bilirubin,Total 0.2 mg/dL (0.2-1.3); Blood Urea Nitrogen 15 mg/dL (7-17); Calcium 9.4 mg/dL (8.4-10.2); Carbon Dioxide 22 mmol/L (22-30); Chloride 110 mmol/L (98-107); Estimated CRCL calculation 117 ml/min; Estimated Glomerular Filt Rate > 60; Glucose 95 mg/dL (65-105); Lipase 28 U/L (23-300); Potassium 4.1 mmol/L (3.4-5.0); Sodium 140 mmol/L (137-145)
--- NOTE | 2020-09-03 13:12 | ED.ABDPAIN ---
HPI - Abdominal Pain General Chief Complaint: Abdominal Pain Stated Complaint: left flank pain, kidney stone Time Seen by Provider: 09/03/20 12:57 Source: patient and RN notes reviewed Mode of arrival: ambulatory Limitations: no limitations History of Present Illness HPI narrative: This is a 30 year old female who presents for evaluation of left lower abdominal pain. Her pain has been present for 1 week, and she states her pain is constant. She was evaluated at [facility] 5 days ago and she was diagnosed with 4 mm kidney stone. She was discharged with prescription for 6 Hudson and Toradol. She is out of her Hudson but she is still taking Toradol. She states her last dose was this morning. She reports nausea yesterday but denies fever or chills. She reports urinary hesitancy and hematuria. Related Data Home Medications Medication Instructions Recorded Confirmed hydrocodone-acetaminophen 09/03/20 ketorolac 09/03/20 Allergies Allergy/AdvReac Type Severity Reaction Status Date / Time bee venom protein (honey bee) Allergy Mild Swelling Verified 07/04/20 13:56 corn Allergy Unknown Rash/THROAT Verified 07/04/20 13:57 SWELLING Review of Systems Review of Systems: All systems reviewed & are unremarkable except as noted in HPI and below PMFSH Past Medical History Medical History ADHD Depression History of blood transfusion IBS (irritable bowel syndrome) Kidney stones Ovarian cyst hemorrhage UTI (urinary tract infection) Surgical History Surgical History History of section History of right salpingo-oophorectomy History of tubal ligation Hx of hand surgery tendon repair left hand Family History Family History Grandparent Cancer lung grandfather Social History Social History Smoking packs per day: 1 Smoking cigarettes per day: 20.0 Years smoked: 14 Smoking pack-years: 14.00 Smoking status: Current every day smoker Tobacco type: cigarettes Second hand tobacco smoke exposure: Yes Alcohol intake: current Alcohol use details: VERY RARE Substance use: current Substance use type: marijuana Other substance usage details: SMOKE Last use: 07/03/20 Gender identity (if verbalized by the patient): Female Spiritual care concerns: No Exam Const: General: no acute distress and alert Orientation/consciousness: patient oriented x3 Eyes: EOM: EOMs intact bilaterally Chest: Chest palpation & inspection: normal inspection of the chest Resp: Effort & Inspection: normal respiratory effort and no retractions Auscultation: clear to auscultation bilaterally Cardio: Rate: regular rate Rhythm: regular rhythm Heart sounds: no murmurs GI: GI Palp: Yes Soft to palpation, Yes Tenderness to palpation present (GI) (LLQ) and No Guarding due to palpation present (GI) Auscultation: normal bowel sounds Skin: General skin exam: normal color Rashes: no rashes Neuro: General: patient oriented x3, moves all extremities and CN's II-XI intact bilaterally Course Reevaluation(s) Reevaluation #1: I discussed with patient's findings. She wants to go home today and follow up with DR. Ellis. She reports her pain has improved Date: 09/03/20 Time: 15:36 Consultations Consultation #1: I discussed with Dr. Ellis patient case and CT/US findings. He agrees with outpatient evaluation . Patient should call office as soon as possible. Date: 09/03/20 Time: 15:35 Vital Signs Vital signs: Vital Signs Temperature 98.7 F 09/03/20 12:10 Pulse Rate 102 H 09/03/20 12:10 Respiratory Rate 16 09/03/20 12:10 Blood Pressure 114/69 09/03/20 12:10 Pulse Oximetry 99 09/03/20 12:10 Temperature 98.7 F 09/03/20 12:10 Pulse Rate 102 H 09/03/20 12:10 Re
[2020-09-03] MEDS: LACTATED RINGERS 1,000 ML 999 ML IV CONT (13:23)
[2020-09-03] MEDS: ONDANSETRON INJ 4 MG/2 ML VIAL IV PUSH (13:24)
[2020-09-03] MEDS: KETOROLAC 30 MG/ML VIAL (*BKC) IV PUSH (13:24)
[2020-09-03] MEDS: MORPHINE SULFATE (*CRX) 4 MG/ML INJ 6 MG IV PUSH (14:45)
== END 2020-09-03 16:00 | disposition home or self-care (01) ==
PROVIDERS: Emergency Medicine; Emergency Provider General Practice
DX: N83.202 Unspecified ovarian cyst, left side (principal); K58.9 Irritable bowel syndrome, unspecified; Z87.442 Personal history of urinary calculi; Z87.440 Personal history of urinary (tract) infections; F17.210 Nicotine dependence, cigarettes, uncomplicated
CPT/HCPCS: 36415; 74177; 76856; 80053; 81001; 81025; 83690; 85025; 96361; 96374; 96375; 99284; J1885; J2270; J2405; J7120; Q9967

== ENCOUNTER 2020-09-21 08:24 | Outpatient (CLI) | payer OTHER, SELFPAY | END 2020-09-21 08:25 | disposition home or self-care (01) | LOC: ANHSURGERY 08:25 | PROVIDERS: Visit Provider Obstetrics & Gynecology | DX: R10.2 Pelvic and perineal pain (principal); Z01.818 Encounter for other preprocedural examination | CPT/HCPCS: 36415; 86850; 86900; 86901 ==

== ENCOUNTER → 2020-09-23 00:54 | Outpatient (CLI) | payer OTHER, SELFPAY ==
[2020-09-23 18:27] LABS: SARS-CoV-2 RNA PCR Negative
== END ==
PROVIDERS: Visit Provider Obstetrics & Gynecology
DX: Z01.812 Encounter for preprocedural laboratory examination (principal); Z20.822 Contact with and (suspected) exposure to COVID-19
CPT/HCPCS: C9803; U0003; U0005

== ENCOUNTER 2020-09-26 01:29 | Day surgery (SDC) | payer OTHER, SELFPAY ==
[2020-09-19 15:14] VITALS: BMI 26.6
[2020-09-26] VITALS (9 sets, daily range): BP systolic 86–129; BP diastolic 56–81; PULSE 70–120; RESP 12–22; TEMP 36.2–36.9; O2SAT 97–100
[2020-09-26] MEDS: LACTATED RINGERS 1,000 ML 30 ML IV CONT ×2 (10:00→17:34)
[2020-09-26] MEDS: KETOROLAC 15 MG/ML VIAL (*BKC) IV PUSH (10:06)
[2020-09-26] MEDS: ONDANSETRON INJ 4 MG/2 ML VIAL IV PUSH (13:08)
--- NOTE | 2020-09-26 13:30 | WPDHPUPDATE1 ---
History and Physical Update Update Date/Time: 09/26/20 13:30 History and Physical has been reviewed, including an updated exam of the patient. There are NO changes in the patient's condition. Risks, benefits, and alternatives have been discussed and questions answered. Patient agrees to proceed with procedure.
--- NOTE | 2020-09-26 13:43 | WPDANESEPPF ---
Anes - Initial Pre Proc Eval Procedure: Operation Date: 09/26/20 12:00 Proposed Procedures p Total Laparoscopic Hysterectomy with Bilateral Salpingo-Oophorectomy - Julianne Ellis MD Date/Time: 09/26/20 13:43 Surgeon: Julianne Ellis MD Pre Op Diagnosis: acute pelvic pain Patient Data Age: 30 Gender: F Height: 1.63 m Weight: 69.85 kg Last Vital Signs Temp 97.2 F L 09/26/20 09:42 Pulse 107 H 09/26/20 09:42 Resp 16 09/26/20 09:42 BP 126/72 09/26/20 09:42 Pulse Ox 99 09/26/20 09:42 Allergies Allergy/AdvReac Type Severity Reaction Status Date / Time bee venom protein (honey bee) Allergy Mild Swelling Verified 09/26/20 10:14 corn Allergy Unknown Rash/THROAT Verified 09/26/20 10:14 SWELLING Home Medications Medication Instructions Recorded Confirmed Type cyclobenzaprine 10 mg PO TID 09/19/20 09/26/20 History oxycodone-acetaminophen 1 tablet PO Q6H 09/26/20 09/26/20 History Patient hx anesthesia problems: none Family hx anesthesia problems: none PMFSH Past Medical History Medical History ADHD Depression History of blood transfusion IBS (irritable bowel syndrome) Kidney stones Ovarian cyst hemorrhage UTI (urinary tract infection) Surgical History Surgical History History of section History of right salpingo-oophorectomy History of tubal ligation Hx of hand surgery tendon repair left hand Family History Family History Grandparent Cancer lung grandfather Social History Social History Smoking packs per day: 1 Smoking cigarettes per day: 20.0 Years smoked: 14 Smoking pack-years: 14.00 Smoking status: Current every day smoker Tobacco type: cigarettes Second hand tobacco smoke exposure: Yes Additional smoking assessment comments: 1/2ppd x 14 years Alcohol intake: former Alcohol use details: VERY RARE Substance use: current Substance use type: marijuana Other substance usage details: daily smoking Last use: 07/03/20 Living arrangements: with family Gender identity (if verbalized by the patient): Female Spiritual care concerns: No Anes - Eval Final PreProcedure Day of Procedure 09/26/20 13:43 Patient weight: overweight Heart: regular rate and rhythm Lungs: clear to auscultation Airway: Mallampati scale class II Neurological: alert and oriented Last oral intake: >/= 8 hours ASA classification: III Emergent: no Anesthetic plan: proceed Anesthesia type and monitoring: general ETT and standard monitoring Informed Consent: The patient's anesthetic plan and its attendant risks and benefits were discussed with the patient/family/POA. Questions were solicited and answers provided to the satisfaction of the patient/family/POA.
[2020-09-26] MEDS: ceFAZolin 2 GM/D5W 50 ML 2 GM/50 ML BAG IVPB (14:53)
--- NOTE | 2020-09-26 17:27 | W.PM.PROC2 ---
Procedure Note - Detailed Date of Procedure 09/26/20 Pre-op Diagnosis Pelvic pain, Ovarian Cysts Post-op Diagnosis same (Uterine Adhesions) Procedure Performed Total laparoscopic hysterectomy and left salpingo oophorectomy. Adhesiolysis - 30 min. Surgeon Julianne Ellis MD Anesthesia general Indications Severe Pelvic Pain. Ovarian Cysts Findings Moderate sized uterus, dense scaring around the cervix , Left Ovarian Cysts, Absent Right Ovary Description of Procedure This patient was taken to the operating room. She was prepped and draped in the dorsal lithotomy position after induction of general anesthesia. A 5 mm skin incision was made in the left upper quadrant the abdomen. A 5 mm trocar was inserted into the intrauterine cavity under direct visualization of the scope. Pneumoperitoneum was achieved. A left lower quadrant 11 mm incision was made with scalpel. An 11 mm trocar was inserted into the anterior abdominal cavity under direct visualization the scope. A 5 mm infraumbilical incision was made with a scalpel and a 5 mm trocar was inserted the intra-abdominal cavity under direct visualization of the scope. The uterine manipulator and Coke per were placed. This was done with a speculum. The speculum was placed. The cervix was grasped with a tenaculum. The stay sutures were placed at 3 and 9:00 a.m.. The stay sutures of 0 Vicryl were brought through the appropriately sized Fede cup. The tip of the BATOOL manipulator was placed in the intrauterine cavity. The cup was slid into place around the cervix and into the fornices. It was locked into place. The sutures were then wrapped around the handle and tied under tension. Bilateral ureteral lysis was performed. This was done from the pelvic brim down to the uterine artery. This was done with careful dissection using sharp and blunt dissection. The infundibulo pelvic ligament was Isolated and cauterized with ligature cautery. This was done just adjacent to the ovary away from the ureter. The para ovarian tissue was cauterized transected with LigaSure cautery. This was done only on the left side. In a stepwise fashion along the lateral aspects of the uterus the round ligament and broad ligaments were cauterized and transected down to the level of the uterine arteries. A bladder flap was created in the bladder was moved distally to the end of the cervix and over the Fede cup. 30 minutes of adhesiolysis was performed around the cervix. This was required to free the cervix from the surrounding scar tissue The bilateral uterine arteries were cauterized and transected. Colpotomy was then performed. In a circumferential fashion the vagina was transected using unipolar cautery. The incision was made down on the Fede. The uterus and cervix were taken out through the vagina. A pneumo occluder was placed in the vagina. The vaginal cuff was closed with a 0 V lock suture. The pelvis was irrigated with copious amounts antibiotic irrigation. The ureters were again examined and found to be intact and flowing freely under the uterine arteries into the bladder. The bladder was intact. It was examined directly. The vagina was irrigated with Betadine solution after removal of the Pneumo occluder. The patient was taken to recovery room. She was stable condition. Sponge lap and needle counts were correct x2. Estimated Blood Loss 150 Drains Yes Packing No Pathology yes Complications No immediate complications Condition stable Disposition PACU
[2020-09-26] MEDS: fentaNYL CITRATE INJ (*CRX) 100 MCG/2 ML VIAL 25 MCG IV PUSH ×8 (17:41→18:30)
[2020-09-26] MEDS: MIDAZOLAM HCL (*CRX) 2 MG/2 ML VIAL IV PUSH (17:52)
[2020-09-26] MEDS: KETOROLAC 30 MG/ML VIAL (*BKC) IV PUSH ×2 (17:54→21:00)
[2020-09-26] MEDS: HYDROmorphone HCL INJ (*CRX) 1 MG/ML SYR 0.5 MG IV PUSH ×2 (18:34→18:40)
[2020-09-26] MEDS: HYDROcodone/acetaminophen (*CRX) 10-325 MG TABLET 1 TAB PO ×2 (21:00→23:57)
[2020-09-26] MEDS: DOCUSATE SODIUM 100 MG CAPSULE PO (21:00)
[2020-09-26] MEDS: NICOTINE (*PBKC) 21 MG PATCH 1 PATCH TRANSDERM (21:00)
[2020-09-26] MEDS: SIMETHICONE 80 MG TAB.CHEW PO (22:00)
[2020-09-26] MEDS: fentaNYL CITRATE INJ (*CRX) 100 MCG/2 ML VIAL 50 MCG IV PUSH (22:00)
[2020-09-26] MEDS: ZOLPIDEM TARTRATE (*CRX) 5 MG TABLET PO (23:57)
[2020-09-27] MEDS: ZOLPIDEM TARTRATE (*CRX) 5 MG TABLET PO (00:06)
[2020-09-27] MEDS: HYDROcodone/acetaminophen (*CRX) 10-325 MG TABLET 1 TAB PO ×4 (00:06→09:09)
[2020-09-27] MEDS: SIMETHICONE 80 MG TAB.CHEW PO ×5 (00:06→12:44)
[2020-09-27] MEDS: ONDANSETRON INJ 4 MG/2 ML VIAL IV PUSH (00:06)
[2020-09-27 03:00] VITALS: BP 119/61; PULSE 95; RESP 16; TEMP 36.4
[2020-09-27] MEDS: KETOROLAC 30 MG/ML VIAL (*BKC) IV PUSH (03:00)
[2020-09-27 07:40] VITALS: BP 124/73; PULSE 125; RESP 18; TEMP 37.4; O2SAT 99
--- NOTE | 2020-09-27 09:00 | PC.NURSE ---
PT introductions made and plan of care discussed per post op obstetrics gyn physician surgery, pain management , daily care activities and pending discharge to home. PT received such instructions per one to one discussion, demonstration. No barriers to learning identified and pt only recipient of such instructions. PT verbalized understanding of such care.
[2020-09-27] MEDS: DOCUSATE SODIUM 100 MG CAPSULE PO (09:09)
[2020-09-27] MEDS: IBUPROFEN 600 MG TABLET PO ×2 (09:09→15:15)
[2020-09-27 09:15] VITALS: BP 124/73; PULSE 125; RESP 18; TEMP 37.4; O2SAT 99
--- NOTE | 2020-09-27 10:46 | WPDANESPN ---
Anes - Prog Note Post-Op Date/Time: 09/27/20 10:46 Cardiovascular status: normal Respiratory status: normal Airway patency: baseline Mental status: baseline Post-Op hydration status: normal Vital Signs: Last Vital Signs Temp 37.4 C 09/27/20 07:40 Pulse 125 H 09/27/20 07:40 Resp 18 09/27/20 07:40 BP 124/73 09/27/20 07:40 Pulse Ox 99 09/27/20 07:40 Pain Score (VAS): 5/10 I/O: Intake & Output 09/26/20 09/27/20 09/27/20 23:59 07:59 15:59 Intake Total 550 Output Total 150 Balance 400 Post-procedural complaints: none Patient Feedback: Patient satisfied with anesthetic care.
--- NOTE | 2020-09-27 11:48 | PM.GYNPNOP ---
CANE FLUME CHUTE OPERATOR - A/P Postoperative Procedures: Procedures Operation Date: 09/26/20 12:00 Actual Procedure Side Surgeon p Total Laparoscopic Hysterectomy with Left Salpingo-Oophorectomy Left Julianne Ellis MD Postoperative day: 1 Postoperative status: doing well and other (Tollerating Regular Diet) Postoperative plan: routine post-op care and discharge (After adequate pain control) Time Spent With Patient Time: Total time spent is greater than 50% in coordination of care (as documented) at patient's floor/unit and/or counseling patient: Time with patient: 15 - 25 minutes CANE FLUME CHUTE OPERATOR- PN:Subj Post-Op Subjective Date/time seen: 09/27/20 11:48 Subjective: patient reports feeling better, pain is well controlled and patient is tolerating oral intake Exam Const: General: cooperative, healthy appearing, comfortable and no acute distress Resp: Auscultation: no crackles, no rales, no rhonchi and no wheezes Cardio: Rhythm: regular rhythm Heart sounds: no click and no murmurs GI: Inspection: non-distended Auscultation: normal bowel sounds Other: Incisions - CDI Extrem: General: normal to inspection, no pedal edema and no calf tenderness CANE FLUME CHUTE OPERATOR - PN: Obj Data Vital Signs Vital Signs: Vital Signs - 24 hr 09/26/20 17:34 09/26/20 17:45 09/26/20 18:00 Temperature 97.7 F Pulse Rate 90 120 H 89 Respiratory Rate 12 22 H 12 Blood Pressure 129/68 86/77 L 123/66 Pulse Oximetry 100 100 100 09/26/20 18:15 09/26/20 18:30 09/26/20 18:45 Temperature 98.4 F Pulse Rate 100 98 70 Respiratory Rate 18 16 16 Blood Pressure 114/58 L 129/81 122/71 Pulse Oximetry 100 97 100 09/26/20 19:42 09/26/20 23:10 09/27/20 03:00 Temperature 97.6 F 97.8 F 97.6 F Pulse Rate 100 98 95 Respiratory Rate 16 16 16 Blood Pressure 112/56 L 120/81 119/61 Pulse Oximetry 09/27/20 07:40 09/27/20 09:15 Temperature 99.3 F 99.3 F Pulse Rate 125 H 125 H Respiratory Rate 18 18 Blood Pressure 124/73 124/73 Pulse Oximetry 99 99 Intake/Output Intake/Output: Intake & Output 09/24/20 09/25/20 09/26/20 09/27/20 23:59 23:59 23:59 23:59 Intake Total 550 Output Total 150 Balance 400 Meds/Results Medications: Active Medications Generic Name Dose Route Start Last Admin Trade Name Freq PRN Reason Stop Dose Admin Hydrocodone Bitart/Acetaminophen 1 tab 09/26/20 18:54 Hydrocodone/Acetaminophen (*Crx) 5-325 Mg Tablet PO Q3H PRN Pain Rated 5 or Less Hydrocodone Bitart/Acetaminophen 1 tab 09/26/20 18:54 09/27/20 09:09 Hydrocodone/Acetaminophen (*Crx) 10-325 Mg Tablet PO 1 tab Q3H PRN Administration Pain Rated 6 or Greater Docusate Sodium 100 mg 09/26/20 20:44 09/27/20 09:09 Docusate Sodium 100 Mg Capsule PO 100 mg BID PRN Administration Constipation Ibuprofen 600 mg 09/26/20 18:54 09/27/20 09:09 Ibuprofen 600 Mg Tablet PO 600 mg Q6H PRN Administration Cramping Ketorolac Tromethamine 30 mg 09/26/20 18:54 09/27/20 03:00 Ketorolac 30 Mg/Ml Vial (*Bkc) IV PUSH 10/01/20 18:55 30 mg Q6H PRN Administration Pain Rated 4-6 Naloxone HCl 0.1 mg 09/26/20 18:54 Naloxone Hcl 0.4 Mg/Ml Vial IV PUSH Q2M PRN Respiratory rate less than 10 Nicotine 1 patch 09/27/20 09:00 Nicotine (*Pbkc) 21 Mg Patch TRANSDERM DAILY PRN Withdrawal Ondansetron HCl 4 mg 09/26/20 18:54 09/27/20 00:06 Ondansetron Inj 4 Mg/2 Ml Vial IV PUSH 4 mg Q6H PRN Administration Nausea And Vomiting Simethicone 80 mg 09/26/20 21:47 09/27/20 09:08 Simethicone 80 Mg Tab.Chew PO 80 mg Q2HR PRN Administration Gas Discomfort Tramadol HCl 50 mg 09/27/20 11:45 Tramadol Hcl (*Crx) 50 Mg Tablet PO Q6H PRN Pain Rated 4-6 Zolpidem Tartrate 5 mg 09/26/20 23:17 09/27/20 00:06 Zolpidem Tartrate (*Crx) 5 Mg Tablet PO 5 mg HS PRN Administration Insomnia
[2020-09-27 12:15] VITALS: BP 113/54; PULSE 124; RESP 18; TEMP 37; O2SAT 100
[2020-09-27] MEDS: traMADol HCL (*CRX) 50 MG TABLET PO (12:44)
--- NOTE | 2020-09-27 15:15 | PC.NURSE ---
PT received discharge instructions per protocol and verbalized understanding of such care.
--- NOTE | 2020-09-27 15:34 | PC.NURSE ---
PT discharged to home via wheelchair to waiting car accompanied by boyfriend. PT confirmed follow up appts
== END 2020-09-27 15:34 | disposition home or self-care (01) ==
LOC: ANHSURGERY 12:01 → ANHOB2 18:55
PROVIDERS: Visit Provider Obstetrics & Gynecology
PROC: 0UT9FZZ Resection of Uterus, Via Natural or Artificial Opening With Percutaneous Endoscopic Assistance (ICD-10-PCS; CPT 58571; principal; 2020-09-26 12:00)
DX: R10.2 Pelvic and perineal pain (principal); N87.1 Moderate cervical dysplasia; N83.202 Unspecified ovarian cyst, left side; F17.210 Nicotine dependence, cigarettes, uncomplicated; F12.90 Cannabis use, unspecified, uncomplicated
CPT/HCPCS: 58571; 88307; 99199; A9270; J0131; J0330; J0690; J1100; J1170; J1885; J2250; J2405; J2704; J2710; J3010; J7030; J7120

== ENCOUNTER 2021-02-27 14:57 | Emergency (ER) | payer OTHER, SELFPAY ==
[2021-02-27 15:14] VITALS: BP 126/78; PULSE 118; RESP 16; TEMP 36.7; O2SAT 100
--- NOTE | 2021-02-27 16:18 | ED.GENADULT ---
HPI - General Adult General Chief complaint: Extremity Injury, Upper Stated complaint: Right Hand Pain Time Seen by Provider: 02/27/21 16:19 Source: patient, RN notes reviewed and old records reviewed Mode of arrival: ambulatory Limitations: no limitations History of Present Illness HPI narrative: 30-year-old female who presents to [facility] with complaints of some tingling, numbness,pain with some throbbing to right hand. Patient states that she has had tendinitis to her right arm right hand/wrist in the past. 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 Patient reports that she has been using and elastic wrist support with no improvement.Patient reports that she has taken some Ibuprofen for her discomfort. Related Data Home Medications Medication Instructions Recorded Confirmed estradiol 2 mg PO DAILY 02/27/21 02/27/21 Allergies Allergy/AdvReac Type Severity Reaction Status Date / Time bee venom protein (honey bee) Allergy Mild Swelling Verified 02/27/21 15:47 corn Allergy Unknown Rash/THROAT Verified 02/27/21 15:47 SWELLING Review of Systems Review of Systems: CONSTITUTIONAL: Denies fever, chills, or sweats. EYES: Denies visual changes, redness, or discharge. ENT: Denies rhinorrhea, congestion, sore throat, or otalgia. CARDIOVASCULAR: Denies chest pain, palpitations, or edema. RESPIRATORY: Denies cough or dyspnea. GASTROINTESTINAL: Denies abdominal pain, nausea, vomiting, or diarrhea. GENITOURINARY: Denies dysuria or hematuria. SKIN: Denies rash or itching. MUSCULOSKELETAL: Denies back pain, joint pain, or myalgia.positive for right hand pain with some tingling and numbness with some derease in strength reported. NEUROLOGIC: Denies headache, numbness, or weakness. PSYCHIATRIC Positive for history of anxiety or depression. All systems reviewed & are unremarkable except as noted in HPI and below [facility] Past Medical History Medical History (Updated 02/28/21 @ 09:35 by Jeri Butler NP) ADHD Anxiety and depression Depression History of blood transfusion IBS (irritable bowel syndrome) Kidney stones Ovarian cyst hemorrhage UTI (urinary tract infection) Surgical History Surgical History History of section History of right salpingo-oophorectomy History of tubal ligation Hx of hand surgery tendon repair left hand Family History Family History Grandparent Cancer lung grandfather Social History Social History Smoking packs per day: 1 Smoking cigarettes per day: 20.0 Years smoked: 14 Smoking pack-years: 14.00 Smoking status: Current every day smoker Tobacco type: cigarettes Second hand tobacco smoke exposure: Yes Additional smoking assessment comments: 1/2ppd x 14 years Alcohol intake: former Alcohol use details: VERY RARE Substance use: current Substance use type: marijuana Other substance usage details: daily smoking Last use: 07/03/20 Gender identity (if verbalized by the patient): Female Spiritual care concerns: No Comments At time of signature, agree with nursing past medical, surgical, social and family history. There is no relevant family history pertinent to the presenting complaint Exam Narrative: GENERAL: Well-appearing, well-nourished, and in no acute distress. HEAD: Normocephalic, atraumatic. EYES: PERRLA and EOMI. ENT: Nares clear, no rhinorrhea or epistaxis. Mucous membranes moist.TM's normal, throat pink with no pain or tonsnil swelling. NECK: Supple.no lymphadenopathy CHEST: Clear to auscultation. No respiratory distress. HEART: Regular rate and rhythm. No murmur heard. Normal peripheral pulses. ABDOMEN: Soft, nontender, nondistended, normal active bowel sounds. EXTREMITIES: Normal ra
== END 2021-02-27 16:43 | disposition home or self-care (01) ==
PROVIDERS: Emergency Provider Registered Nurse
DX: M77.8 Other enthesopathies, not elsewhere classified (principal); F17.210 Nicotine dependence, cigarettes, uncomplicated; F12.20 Cannabis dependence, uncomplicated
CPT/HCPCS: 99213; G0463

== ENCOUNTER 2021-03-09 14:03 | Outpatient (CLI) | payer OTHER, SELFPAY ==
--- NOTE | ~2021-03-09 | MMUS_ITS ---
EXAMINATION: MM diagnostic juli BI w lilibeth, US breast BI limited HISTORY: Palpable breast lump TECHNIQUE: Additional 3-D tomosynthesis images of the breasts were performed and synthetic 2-D images were generated. CAD analysis was submitted and interpreted. High resolution limited bilateral breast ultrasound was performed. COMPARISON: None BREAST PARENCHYMAL COMPOSITION: Breast composed of scattered areas of fibroglandular density. FINDINGS: MAMMOGRAPHIC FINDINGS: There is a focal asymmetry in the lower inner quadrant of the left breast anteriorly which is less de nse with spot compression views. There is no mammographic evidence for malignancy in the right breast . ULTRASOUND: Limited bilateral breast ultrasound: Normal heterogeneous echotexture without focal solid or cystic m ass. IMPRESSION: 1. Probable benign focal asymmetry lower inner quadrant of the left breast. No sonographic correlate. 2. Recommend 6 month follow-up diagnostic left mammogram. BI-RADS category 3, probably benign findings. Reviewed, dictated and finalized at location [facility] IMPRESSION: 1. Probable benign focal asymmetry lower inner quadrant of the left breast. No sonographic correlate. 2. Recommend 6 month follow-up diagnostic left mammogram. BI-RADS category 3, probably benign findings.
== END 2021-03-09 14:04 | disposition home or self-care (01) ==
LOC: ANHIMG 14:07
PROVIDERS: Visit Provider Obstetrics & Gynecology
DX: R92.8 Other abnormal and inconclusive findings on diagnostic imaging of breast (principal)
CPT/HCPCS: 76642; 77062; 77066; G0279

== ENCOUNTER 2021-03-26 12:44 | Emergency (ER) | payer OTHER, SELFPAY ==
--- NOTE | 2021-03-26 12:50 | ED.URI ---
HPI - URI/Sore Throat General Chief Complaint: Upper Respiratory Infection Stated Complaint: Side of throat Pain Time Seen by Provider: 03/26/21 12:50 Source: patient, family, RN notes reviewed and old records reviewed Mode of arrival: ambulatory Limitations: no limitations History of Present Illness HPI Narrative: 30-year-old female presents to the [facility] with complaints of right-sided neck pain for 4 days. pain along the submandibular lymphatic chain. No swelling noted. Patient face and neck symmetric. Patient denies any midline tenderness. No trauma. No sinus issues. No ear pain. No chest pain or abdominal pain. Denies fevers Related Data Home Medications Medication Instructions Recorded Confirmed estradiol 2 mg PO DAILY 02/27/21 03/26/21 Allergies Allergy/AdvReac Type Severity Reaction Status Date / Time bee venom protein (honey bee) Allergy Mild Swelling Verified 02/27/21 15:47 corn Allergy Unknown Rash/THROAT Verified 02/27/21 15:47 SWELLING Review of Systems Review of Systems: All systems reviewed & are unremarkable except as noted in HPI and below Constitutional: Constitutional: Reports no additional constitutional complaints, Denies chills, Denies fever(s) and Denies headache(s) Eyes: Eyes: Reports no additional eye complaints ENT: Reports system reviewed and no additional complaints, except as documented, Denies vertigo, Denies dizziness, Denies headache(s), Denies nasal congestion and Denies sore throat Cardiovascular: Cardiovascular: Reports no additional cardiovascular complaints, Denies chest pain, Denies syncope, Denies rapid heart rate and Denies dyspnea Respiratory: Respiratory: Reports no additional respiratory complaints, Denies cough, Denies dyspnea and Denies wheezing Gastrointestinal: Gastrointestinal: Reports no additional gastrointestinal complaints, Denies abdominal pain, Denies diarrhea, Denies nausea and Denies vomiting Musculoskeletal: Musculoskeletal: Reports as per HPI and Denies numbness Comments: Right lateral neck Integumentary/Breasts: Skin/Breast: Reports system reviewed and no additional complaints, except as docu Neurologic: Reports system reviewed and no additional complaints, except as documented, Denies vertigo, Denies dizziness, Denies syncope, Denies headache(s), Denies focal weakness and Denies numbness Psychiatric: Psychiatric: Reports no additional psychiatric complaints Allergic/Immunologic: Allergic/Immunologic: Reports no additional allergic/immunologic complaints and Denies wheezing PMFSH Past Medical History Medical History ADHD Anxiety and depression Depression History of blood transfusion IBS (irritable bowel syndrome) Kidney stones Ovarian cyst hemorrhage UTI (urinary tract infection) Surgical History Surgical History History of section History of right salpingo-oophorectomy History of tubal ligation Hx of hand surgery tendon repair left hand Family History Family History Grandparent Cancer lung grandfather Social History Social History Smoking packs per day: 1 Smoking cigarettes per day: 20.0 Years smoked: 14 Smoking pack-years: 14.00 Smoking status: Current every day smoker Tobacco type: cigarettes Second hand tobacco smoke exposure: Yes Additional smoking assessment comments: 1/2ppd x 14 years Alcohol intake: former Alcohol use details: VERY RARE Substance use: current Substance use type: marijuana Other substance usage details: daily smoking Last use: 07/03/20 Gender identity (if verbalized by the patient): Female Spiritual care concerns: No Comments At the time of my signature, I reviewed and agree with the nursing past medical, surgical, social, and family history. The
[2021-03-26 12:52] VITALS: BP 143/75; PULSE 98; RESP 16; TEMP 36.6; O2SAT 98
[2021-03-26 12:55] VITALS: BP 143/75; PULSE 98; RESP 16; TEMP 36.6; O2SAT 98
== END 2021-03-26 13:10 | disposition home or self-care (01) ==
PROVIDERS: Emergency Provider Nurse Practitioner
DX: M54.2 Cervicalgia (principal); F17.210 Nicotine dependence, cigarettes, uncomplicated
CPT/HCPCS: 99213; G0463

== ENCOUNTER 2021-03-26 13:30 | Emergency (ER) | payer OTHER, SELFPAY ==
--- NOTE | ~2021-03-26 | CT_ITS ---
EXAMINATION: CT soft tissue neck w con DATE: 03/26/2021 15:09 INDICATION: Right-sided neck pain and swelling. TECHNIQUE: Computed tomography (CT) of the neck was performed with 75 mL Omnipaque-350 intravenous co ntrast. Automated exposure control and iterative reconstruction technique were employed. The dose-duran gth product was 539.55 mGy-cm. COMPARISON: None FINDINGS: Right jugular digastric node measures 17 x 12 mm. There is 0% stenosis of the proximal inte rnal carotid arteries relative to normal distal artery lumen diameters. The paranasal sinuses are moises ar. There are trace mastoid effusions. There are carious lesions of multiple teeth. IMPRESSION: 1. Dental disease. 2. Mildly enlarged right jugulodigastric node, likely reactive. Reviewed, dictated and finalized at location A. [employer]
[2021-03-26 13:33] VITALS: BP 132/77; PULSE 100; RESP 16; TEMP 36.8; O2SAT 100
--- NOTE | 2021-03-26 14:28 | ED.SKABFB ---
HPI - Skin/Abscess/Foreign Bdy General Chief complaint: Skin/Abscess/Foreign Body Stated complaint: R NECK PAIN Time Seen by Provider: 03/26/21 13:52 Source: patient Mode of arrival: ambulatory Limitations: no limitations History of Present Illness HPI narrative: This is a 30 year old female that presents to the ER for right sided neck pain present over the last 4 days. Reports feelings of swelling in the right side of the neck. The area is painful. She reports a mild sore throat. Denies fever or difficulty swallowing. Related Data Home Medications Medication Instructions Recorded Confirmed estradiol 2 mg PO DAILY 02/27/21 03/26/21 Allergies Allergy/AdvReac Type Severity Reaction Status Date / Time bee venom protein (honey bee) Allergy Mild Swelling Verified 02/27/21 15:47 corn Allergy Unknown Rash/THROAT Verified 02/27/21 15:47 SWELLING Review of Systems Review of Systems: CONSTITUTIONAL: Denies fever ENT: Reports sore throat RESPIRATORY: Denies dyspnea. All systems reviewed & are unremarkable except as noted in HPI and below PMFSH Past Medical History Medical History ADHD Anxiety and depression Depression History of blood transfusion IBS (irritable bowel syndrome) Kidney stones Ovarian cyst hemorrhage UTI (urinary tract infection) Surgical History Surgical History History of section History of right salpingo-oophorectomy History of tubal ligation Hx of hand surgery tendon repair left hand Family History Family History Grandparent Cancer lung grandfather Social History Social History Smoking packs per day: 1 Smoking cigarettes per day: 20.0 Years smoked: 14 Smoking pack-years: 14.00 Smoking status: Current every day smoker Tobacco type: cigarettes Second hand tobacco smoke exposure: Yes Additional smoking assessment comments: 1/2ppd x 14 years Alcohol intake: former Alcohol use details: VERY RARE Substance use: current Substance use type: marijuana Other substance usage details: daily smoking Last use: 07/03/20 Gender identity (if verbalized by the patient): Female Spiritual care concerns: No Exam Narrative: GENERAL: Well-appearing, well-nourished, and in no acute distress. HEAD: Normocephalic, atraumatic. EYES: EOMI. ENT: Nares clear, no rhinorrhea or epistaxis. Mucous membranes moist. Oropharynx with mild redness and tonsillar hypertrophy, no exudate or other lesions. Bilateral TMs pearly crawford non-bulging NECK: Supple. No adenopathy or masses. Tender to palpation of the right anterior cervical area. No erythema or warmth CHEST: Clear to auscultation. No respiratory distress. No wheezes rales or rhonchi HEART: Regular rate and rhythm. No murmur heard. Normal peripheral pulses. EXTREMITIES: Normal range of motion. No edema. SKIN: Warm, dry, no rash. NEURO: No focal deficits. Alert and oriented x3. PSYCH: Normal mood and affect Course Vital Signs Vital signs: Vital Signs Temperature 98.2 F 03/26/21 13:33 Pulse Rate 100 03/26/21 13:33 Respiratory Rate 16 03/26/21 13:33 Blood Pressure 132/77 03/26/21 13:33 Pulse Oximetry 100 03/26/21 13:33 Temperature 98.2 F 03/26/21 13:33 Pulse Rate 100 03/26/21 13:33 Respiratory Rate 16 03/26/21 13:33 Blood Pressure 132/77 03/26/21 13:33 Pulse Oximetry 100 03/26/21 13:33 MDM - Skin/Abscess/Foreign Bdy MDM Narrative Medical decision making narrative: Patient presents the emergency department for swelling and pain on the right side of the neck. No obvious edema or erythema on exam. She is afebrile and nontoxic-appearing. Lungs are clear on exam. CBC and metabolic panel without concerning findings. Inflammatory markers are not elevated. Her strep scre
[2021-03-26] MEDS: KETOROLAC 30 MG/ML VIAL (*BKC) IV PUSH (14:39)
[2021-03-26 14:43] LABS: Basophils Percent Auto 0.3 % (0.2-1.2); Eosinophils Percent Auto 0.5 % (0-4.4); Hematocrit 40.7 % (37.0-47.0); Hemoglobin 13.5 g/dL (12.0-15.0); Immature Granulocyte Absolute 0.01 K/mm3 (0.00-0.031); Immature Granulocyte Percent A 0.1 % (0-0.5); Lymphocytes Absolute Auto 1.72 K/mm3 (0.9-3.2); Lymphocytes Percent Auto 23.5 % (18.3-44.2); Mean Corpuscular HGB Conc 33.2 g/dl (32-36); Mean Corpuscular Hemoglobin 27.4 pg (26-34); Mean Corpuscular Volume 82.7 fl (80-100); Mean Platelet Volume 9.4 fl (7.4-10.4); Monocytes Absolute Auto 0.5 K/mm3 (0.1-0.6); Monocytes Percent Auto 6.8 % (2.6-8.5); Neutrophils Percent Auto 68.8 % (45.5-73.1); Platelet Count Result 273 k/mm3 (150-375); Red Blood Count 4.92 M/mm3 (4.2-5.4); Red Cell Distribution Width 12.9 % (11.5-14.5); White Blood Count 7.3 K/mm3 (4.5-10.0)
[2021-03-26 14:57] LABS: Anion Gap 6 mmol/L (8-16); Blood Urea Nitrogen 15 mg/dL (7-17); CRP 0.6 mg/dL (<1.0); Calcium 10.2 mg/dL (8.4-10.2); Carbon Dioxide 24 mmol/L (22-30); Chloride 107 mmol/L (98-107); Estimated CRCL calculation 117 ml/min; Estimated Glomerular Filt Rate > 60; Glucose 103 mg/dL (65-110); Sodium 137 mmol/L (137-145)
[2021-03-26 15:15] LABS: Erythrocyte Sedimentation Rate 17 mm/hr (0-20)
[2021-03-26 16:30] VITALS: BP 134/78; PULSE 99; RESP 18; O2SAT 100
== END 2021-03-26 16:32 | disposition home or self-care (01) ==
PROVIDERS: Physician Assistant; Emergency Provider Family Medicine
DX: R59.1 Generalized enlarged lymph nodes (principal); K58.9 Irritable bowel syndrome, unspecified; Z87.442 Personal history of urinary calculi; Z87.440 Personal history of urinary (tract) infections; F17.210 Nicotine dependence, cigarettes, uncomplicated
CPT/HCPCS: 36415; 70491; 80048; 85025; 85652; 86140; 87081; 87880; 96374; 99284; J1885; Q9967

== ENCOUNTER 2021-09-02 11:35 | Emergency (ER) | payer OTHER, SELFPAY ==
[2021-09-02 11:41] VITALS: BP 119/68; PULSE 139; RESP 20; TEMP 38.1; O2SAT 100
--- NOTE | 2021-09-02 12:16 | ED.URI ---
HPI - URI/Sore Throat General Chief Complaint: Upper Respiratory Infection Stated Complaint: Sore Throat Time Seen by Provider: 09/02/21 12:01 Source: patient Mode of arrival: ambulatory Limitations: no limitations History of Present Illness HPI Narrative: Patient presents today calling of a sore throat since yesterday with headache and 1 episode of vomiting today. She also reports fever up to 100. She currently rates her pain 10/10 and has tried no [id number] treatment prior to arrival. Related Data Allergies Allergy/AdvReac Type Severity Reaction Status Date / Time bee venom protein (honey bee) Allergy Mild Swelling Verified 09/02/21 11:36 corn Allergy Unknown Rash/THROAT Verified 09/02/21 11:36 SWELLING Review of Systems Review of Systems: CONSTITUTIONAL: Denies body aches, chills, or sweats.+ Fever EYES: Denies visual changes, redness, or discharge. ENT: Denies rhinorrhea, congestion, or otalgia.+ Sore throat CARDIOVASCULAR: Denies chest pain, palpitations, or edema. RESPIRATORY: Denies cough or dyspnea. GASTROINTESTINAL: Denies abdominal pain, nausea, or diarrhea.+ Vomiting GENITOURINARY: Denies dysuria or hematuria. SKIN: Denies rash, itching, or wounds. MUSCULOSKELETAL: Denies back pain, joint pain, or myalgia. NEUROLOGIC: Denies numbness, tingling, or weakness.+ Headache PSYCH: Denies depression or anxiety. [facility] Past Medical History Medical History ADHD Anxiety and depression Depression History of blood transfusion IBS (irritable bowel syndrome) Kidney stones Ovarian cyst hemorrhage UTI (urinary tract infection) Surgical History Surgical History History of section History of right salpingo-oophorectomy History of tubal ligation Hx of hand surgery tendon repair left hand Family History Family History Grandparent Cancer lung grandfather Social History Social History Smoking packs per day: 1 Smoking cigarettes per day: 20.0 Years smoked: 14 Smoking pack-years: 14.00 Smoking status: Current every day smoker Tobacco type: cigarettes Second hand tobacco smoke exposure: Yes Additional smoking assessment comments: 1/2ppd x 14 years Alcohol intake: former Alcohol use details: VERY RARE Substance use: current Substance use type: marijuana Other substance usage details: daily smoking Last use: 07/03/20 Gender identity (if verbalized by the patient): Female Spiritual care concerns: No Comments At time of signature, I have reviewed and agree with nursing past medical, surgical, social and family history unless otherwise noted. Please see nursing chart for further information. There is no relevant family history pertinent to the presenting complaint Exam Narrative: GENERAL: Well-appearing, well-nourished, and in no acute distress. HEAD: Normocephalic, atraumatic. EYES: EOMI. No redness or drainage. Conjunctivae normal. ENT: Mucous membranes pink and moist. Nares clear. No rhinorrhea. TMs normal bilaterally. Throat erythematous. Left tonsil 3+, right tonsil 1+. Palate normal. Uvula midline. White exudate on the left tonsil. NECK: Normal AROM. Supple. Bilateral anterior cervical chain lymphadenopathy. CHEST: No respiratory distress. Clear to auscultation. HEART: Regular rate and rhythm. No murmur appreciated. Normal peripheral pulses. EXTREMITIES: Normal range of motion. No edema. SKIN: Warm, dry, no rash. Capillary refill normal. Normal skin turgor. NEURO: No focal deficits. Alert and oriented x3. Gait steady. PSYCH: Normal affect. No signs of depression or anxiety. Course Course Level of Care: Express Care Visit Vital Signs Vital signs: Vital Signs Temperature 100.5 F H
== END 2021-09-02 12:26 | disposition home or self-care (01) ==
PROVIDERS: Emergency Provider Nurse Practitioner
DX: J02.0 Streptococcal pharyngitis (principal); F17.210 Nicotine dependence, cigarettes, uncomplicated
CPT/HCPCS: 87880; 99213; G0463

== ENCOUNTER 2021-09-03 20:27 | Emergency (ER) | payer OTHER, SELFPAY ==
--- NOTE | ~2021-09-03 | CT_ITS ---
EXAMINATION: CT soft tissue neck w con DATE: 09/03/2021 22:38 INDICATION: Throat pain. TECHNIQUE: Computed tomography (CT) of the neck was performed with 75 mL Omnipaque 300 intravenous co ntrast. Automated exposure control and iterative reconstruction technique were employed. The dose-duran gth product was 595.68 mGy-cm. COMPARISON: CT neck 03/26/2021 FINDINGS: The palatine tonsils are enlarged. Right jugular digastric node measures 20 x 15 mm. The ce rvical carotid arteries are normal. The paranasal sinuses are clear. There is a trace right mastoid e ffusion. Multiple teeth are absent. There are carious lesions of multiple teeth. No periapical lucenc ies. IMPRESSION: 1. Enlarged palatine tonsils. No abscess. 2. Dental disease. 3. Mildly enlarged right jugulodigastric node, likely reactive. Reviewed, dictated and finalized at location A.
[2021-09-03 20:36] VITALS: BP 122/62; PULSE 87; RESP 18; TEMP 36.8; O2SAT 99
[2021-09-03] MEDS: SODIUM CHLORIDE 0.9% IV 1,000 ML 999 ML IV CONT (21:21)
[2021-09-03 21:30] LABS: Basophils Percent Auto 0.1 % (0.2-1.2); Eosinophils Percent Auto 0.1 % (0-4.4); Hematocrit 31.9 % (37.0-47.0); Hemoglobin 10.7 g/dL (12.0-15.0); Immature Granulocyte Absolute 0.02 K/mm3 (0.00-0.031); Immature Granulocyte Percent A 0.3 % (0-0.5); Lymphocytes Absolute Auto 0.88 K/mm3 (0.9-3.2); Mean Corpuscular HGB Conc 33.5 g/dl (32-36); Mean Corpuscular Hemoglobin 27.4 pg (26-34); Mean Corpuscular Volume 81.8 fl (80-100); Mean Platelet Volume 9.8 fl (7.4-10.4); Monocytes Absolute Auto 0.2 K/mm3 (0.1-0.6); Monocytes Percent Auto 2.7 % (2.6-8.5); Neutrophils Absolute Auto 5.7 K/mm3 (1.3-6.7); Neutrophils Percent Auto 83.8 % (45.5-73.1); Platelet Count Result 194 k/mm3 (150-375); Red Cell Distribution Width 12.9 % (11.5-14.5); White Blood Count 6.8 K/mm3 (4.5-10.0)
[2021-09-03 21:49] LABS: Alanine Aminotransferase 18 U/L (6-35); Albumin Level 3.6 g/dL (3.5-5.1); Alkaline Phosphatase 74 U/L (38-126); Anion Gap 5 mmol/L (8-16); Aspartate Amino Transferase 23 U/L (14-36); Bilirubin,Total < 0.1 mg/dL (0.2-1.3); Blood Urea Nitrogen 14 mg/dL (7-17); Calcium 8.7 mg/dL (8.4-10.2); Carbon Dioxide 23 mmol/L (22-30); Chloride 113 mmol/L (98-107); Estimated CRCL calculation 116 ml/min; Estimated Glomerular Filt Rate > 60; Glucose 122 mg/dL (65-110); Potassium 3.8 mmol/L (3.4-5.0); Sodium 141 mmol/L (137-145)
--- NOTE | 2021-09-03 22:03 | ED.GENADULT ---
HPI - General Adult General Chief complaint: Unspecified <Mario Mckinnon DO - Last Filed: 09/03/21 22:12> Stated complaint: strep <Mario Mckinnon DO - Last Filed: 09/03/21 22:12> Time Seen by Provider: 09/03/21 20:37 <Mario Mckinnon DO - Last Filed: 09/03/21 22:12> Source: RN notes reviewed <Mario Mckinnon DO - Last Filed: 09/03/21 22:12> History of Present Illness HPI narrative: Patient presents emergency room from home for sore throat. Patient states symptoms began 2 days ago with progressive sore throat states she went to the urgent care yesterday and had a strep screen that was positive she was started on Augmentin at that time which she has been taking and states she is taken a total of 3 doses. States her throat continues to hurt and her tonsils continue to enlarge and she was concerned as her left tonsil has become more swollen she also notes swelling in her neck she denies any fevers or chills chest pain shortness of breath states that it is painful to swallow states she has been taking ibuprofen at home <Mario Mckinnon DO - Last Filed: 09/03/21 22:12> Related Data Allergies/adverse reactions: Allergies Allergy/AdvReac Type Severity Reaction Status Date / Time bee venom protein (honey bee) Allergy Mild Swelling Verified 09/02/21 11:36 corn Allergy Unknown Rash/THROAT Verified 09/02/21 11:36 SWELLING <Mario Mckinnon DO - Last Filed: 09/03/21 22:12> Review of Systems Review of Systems: Gen.: Denies fevers or chills Eyes: Denies eye pain or visual change ENT: See HPI Respiratory: Denies shortness of breath or cough CV: Denies chest pain or palpitations GI: Denies abdominal pain nausea, emesis or diarrhea Musculoskeletal: Denies back pain or muscle pain Neuro: Denies numbness, tingling, weakness or focal weakness Skin: Denies rash Except as documented, all other systems reviewed and negative <DO Adalberto Swann Last Filed: 09/03/21 22:12> [facility] Past Medical History Medical History: Medical History ADHD Anxiety and depression Depression History of blood transfusion IBS (irritable bowel syndrome) Kidney stones Ovarian cyst hemorrhage UTI (urinary tract infection) <Mario Mckinnon DO - Last Filed: 09/03/21 22:12> Surgical History Surgical History: Surgical History History of section History of right salpingo-oophorectomy History of tubal ligation Hx of hand surgery tendon repair left hand <Mario Mckinnon DO - Last Filed: 09/03/21 22:12> Family History Family History: Family History Grandparent Cancer lung grandfather <Mario Mckinnon DO - Last Filed: 09/03/21 22:12> Social History Social History: Social History Smoking packs per day: 1 Smoking cigarettes per day: 20.0 Years smoked: 14 Smoking pack-years: 14.00 Smoking status: Current every day smoker Tobacco type: cigarettes Second hand tobacco smoke exposure: Yes Additional smoking assessment comments: 1/2ppd x 14 years Alcohol intake: former Alcohol use details: VERY RARE Substance use: current Substance use type: marijuana Other substance usage details: daily smoking Last use: 07/03/20 Gender identity (if verbalized by the patient): Female Spiritual care concerns: No <Mario Mckinnon DO - Last Filed: 09/03/21 22:12> Exam Narrative: APPEARANCE: No acute distress, nontoxic, resting in bed EYES: EOMI HEENT: Normocephalic, atraumatic, TMs clear bilaterally nares patent oral mucosa moist erythema the posterior pharynx and bilateral tonsils with exudate over the bilateral tonsils left tonsil is 3+ right tonsil is 2+. Uvula is midline, no trismus tolerating ow
[2021-09-03 22:06] LABS: Monoscreen Negative (Negative); Negative Monotest Control Negative (Negative); Positive Monotest Control Positive (Positive)
--- NOTE | 2021-09-03 23:18 | PC.NURSE ---
Assumed care of pt at this time. Pt alert and upright on stretcher, updated on POC.
[2021-09-03 23:33] VITALS: BP 110/65; PULSE 76; RESP 16; TEMP 36.6; O2SAT 97
== END 2021-09-04 00:52 | disposition home or self-care (01) ==
PROVIDERS: Emergency Medicine; Emergency Provider Emergency Medicine
DX: J02.0 Streptococcal pharyngitis (principal); K58.9 Irritable bowel syndrome, unspecified; Z87.442 Personal history of urinary calculi; Z87.440 Personal history of urinary (tract) infections; F17.210 Nicotine dependence, cigarettes, uncomplicated
CPT/HCPCS: 36415; 70491; 80053; 85025; 86308; 96365; 96375; 99284; J0131; J1100; J7030; Q9967

== ENCOUNTER 2021-09-21 17:23 | Emergency (ER) | payer OTHER, SELFPAY ==
[2021-09-21] VITALS (9 sets, daily range): BP systolic 114–139; BP diastolic 79–94; PULSE 89–124; RESP 11–24; TEMP 36.7; O2SAT 98–100
--- NOTE | ~2021-09-21 | CT_ITS ---
EXAMINATION: CT abdomen pelvis w con DATE: 09/21/2021 21:51 INDICATION: Right upper quadrant pain. Nausea and vomiting. TECHNIQUE: Computed tomography (CT) of the head was performed with 100 cc Omnipaque 300 intravenous c ontrast. The dose-length product was 359.22 mGy-cm. Automated exposure control and iterative reconstr uction technique were employed. COMPARISON: CT dated 09/03/2020 FINDINGS: Lung bases unremarkable. Heart size normal. No significant pleural or pericardial effusion. The liver, spleen, pancreas, adrenal glands are unremarkable. Gallbladder is present. There are smal l right renal cyst. Normal appendix. Nonobstructive bowel gas pattern. Colonic diverticulosis without evidence for diverticulitis. Interval resection of the uterus and left adnexal mass. No free air or free fluid. No significant vascular abnormality. No lymphadenopathy. No acute osseous abnormality. IMPRESSION: 1. No acute abdominal abnormality Reviewed, dictated and finalized at location A.
--- NOTE | 2021-09-21 18:06 | ECG_ITS ---
Measurements Intervals [place] Rate: 117 P: 62 KS: 128 QRS: 59 QRSD: 76 T: 59 QT: 322 QTc: 450 Interpretive Statements SINUS TACHYCARDIA POSSIBLE LEFT ATRIAL ENLARGEMENT BASELINE ARTIFACT- I, II, III, AVR, AVL, AVF, V1-V6 ABNORMAL ECG Electronically Signed On 09-21-2021 20:27:01 CDT by Vijay Harris D.O.
[2021-09-21 18:32] LABS: Basophils Percent Auto 0.3 % (0.2-1.2); Eosinophils Absolute Auto 0.1 K/mm3 (0-0.3); Eosinophils Percent Auto 0.8 % (0-4.4); Hematocrit 39.4 % (37.0-47.0); Hemoglobin 12.8 g/dL (12.0-15.0); Immature Granulocyte Absolute 0.01 K/mm3 (0.00-0.031); Immature Granulocyte Percent A 0.2 % (0-0.5); Lymphocytes Absolute Auto 2.47 K/mm3 (0.9-3.2); Lymphocytes Percent Auto 38.4 % (18.3-44.2); Mean Corpuscular HGB Conc 32.5 g/dl (32-36); Mean Corpuscular Hemoglobin 26.8 pg (26-34); Mean Corpuscular Volume 82.6 fl (80-100); Mean Platelet Volume 9.1 fl (7.4-10.4); Monocytes Absolute Auto 0.5 K/mm3 (0.1-0.6); Monocytes Percent Auto 7.2 % (2.6-8.5); Neutrophils Absolute Auto 3.4 K/mm3 (1.3-6.7); Neutrophils Percent Auto 53.1 % (45.5-73.1); Platelet Count Result 341 k/mm3 (150-375); Red Blood Count 4.77 M/mm3 (4.2-5.4); Red Cell Distribution Width 13.1 % (11.5-14.5); White Blood Count 6.4 K/mm3 (4.5-10.0)
[2021-09-21 18:50] LABS: Alanine Aminotransferase 20 U/L (6-35); Albumin Level 4.9 g/dL (3.5-5.1); Alkaline Phosphatase 87 U/L (38-126); Anion Gap 10 mmol/L (8-16); Aspartate Amino Transferase 26 U/L (14-36); Bilirubin,Total 0.5 mg/dL (0.2-1.3); Blood Urea Nitrogen 12 mg/dL (7-17); Calcium 9.9 mg/dL (8.4-10.2); Carbon Dioxide 21 mmol/L (22-30); Chloride 109 mmol/L (98-107); Estimated CRCL calculation 99 ml/min; Estimated Glomerular Filt Rate > 60; Glucose 106 mg/dL (65-110); Lipase 34 U/L (23-300); Potassium 3.7 mmol/L (3.4-5.0); Sodium 140 mmol/L (137-145)
[2021-09-21 19:00] LABS: Appearance Urine Clear (Clear); Bilirubin Urine Negative (Negative); Blood Urine Negative (Negative); Color Urine Yellow (Yellow); Glucose Urine UA Negative (Negative); Ketones Urine Trace mg/dL (Negative); Leukocyte Esterase Ur Negative LEU/UL (Negative); Nitrate Urine Negative (Negative); Protein Urine Negative (Negative); Specific Grav Ur 1.025 (1.001-1.035); Urobilinogen Urine 0.2 mg/dL (<2.0); pH Urine 7.5 (5.0-9.0)
[2021-09-21 19:07] LABS: Add Urine Microscopic? YES; Bacteria Urine Trace /hpf; Mucus Urine Few /lpf; RBC Urine 0-2 /hpf (0-2); Squamous Epithelial Cell Urine Many /hpf (Few); WBC Urine 0-3 /hpf
--- NOTE | 2021-09-21 21:09 | PC.NURSE ---
Pt was called to room but was outside smoking. Another pt had to walk out to smoking area to get pt.
--- NOTE | 2021-09-21 21:18 | ED.ABDPAIN ---
HPI - Abdominal Pain General Chief Complaint: Abdominal Pain Stated Complaint: ruq abd Time Seen by Provider: 09/21/21 21:10 History of Present Illness HPI narrative: 31-year-old female presents emergency room for evaluation of right upper quadrant abdominal pain. Reports pain started suddenly at approximately 4:00 this afternoon. Denies any radiating pain. Associated with nausea and vomiting. Patient has significant surgical abdominal history, including 4 C-sections and total hysterectomy. Patient denies any diarrhea or constipation. Denies fever. Related Data Allergies Allergy/AdvReac Type Severity Reaction Status Date / Time bee venom protein (honey bee) Allergy Mild Swelling Verified 09/21/21 21:18 corn Allergy Unknown Rash/THROAT Verified 09/21/21 21:18 SWELLING Review of Systems Review of Systems: CONSTITUTIONAL: Denies fever, chills, or sweats. EYES: Denies visual changes, redness, or discharge. ENT: Denies rhinorrhea, congestion, sore throat, or otalgia. CARDIOVASCULAR: Denies chest pain, palpitations, or edema. RESPIRATORY: Denies cough or dyspnea. GASTROINTESTINAL: Reports abdominal pain, nausea, vomiting GENITOURINARY: Denies dysuria or hematuria. SKIN: Denies rash or itching. MUSCULOSKELETAL: Denies back pain, joint pain, or myalgia. NEUROLOGIC: Denies headache, numbness, dizziness, or weakness. PSYCHIATRIC: Denies anxiety or depression. [facility] Past Medical History Medical History ADHD Anxiety and depression Depression History of blood transfusion IBS (irritable bowel syndrome) Kidney stones Ovarian cyst hemorrhage UTI (urinary tract infection) Surgical History Surgical History History of section History of right salpingo-oophorectomy History of tubal ligation Hx of hand surgery tendon repair left hand Family History Family History Grandparent Cancer lung grandfather Social History Social History Smoking packs per day: 1 Smoking cigarettes per day: 20.0 Years smoked: 14 Smoking pack-years: 14.00 Smoking status: Current every day smoker Tobacco type: cigarettes Second hand tobacco smoke exposure: Yes Additional smoking assessment comments: 1/2ppd x 14 years Alcohol intake: former Alcohol use details: VERY RARE Substance use: current Substance use type: marijuana Other substance usage details: daily smoking Last use: 07/03/20 Gender identity (if verbalized by the patient): Female Spiritual care concerns: No Exam Narrative: GENERAL: Well-appearing, well-nourished, no physical limitations, and in no acute distress. HEAD: Normocephalic, atraumatic. EYES: Conjunctivae normal, PERRLA and EOMI. CHEST: Clear to auscultation. No respiratory distress. No wheezes rales or rhonchi. No tenderness. HEART: Regular rate and rhythm. No murmur heard. Normal peripheral pulses. ABDOMEN: Soft, right upper quadrant tenderness, nondistended, normal active bowel sounds. EXTREMITIES: Normal range of motion. No edema. No clubbing or cyanosis SKIN: Warm, dry, no rash. No noted wounds NEURO: No focal deficits. Alert and oriented x3. MAEW. CN's II-XI intact bilaterally, normal gait PSYCH: Cooperative. Normal mood and affect. Course Vital Signs Vital signs: Vital Signs Temperature 36.7 C 09/21/21 17:34 Pulse Rate 124 H 09/21/21 17:34 Respiratory Rate 24 H 09/21/21 17:34 Blood Pressure 139/93 H 09/21/21 17:34 Pulse Oximetry 100 09/21/21 17:34 Oxygen Delivery Room Air 09/21/21 17:34 Temperature 36.7 C 09/21/21 17:34 Pulse Rate 124 H 09/21/21 17:34 Respiratory Rate 24 H 09/21/21 17:34 Blood Pressure 139/93 H 09/21/21 17:34 Pulse Oximetry 100 09/21/21 17:34 Oxygen Delivery Room Air 09/21/21 17:3
[2021-09-21] MEDS: MORPHINE SULFATE (*CRX) 4 MG/ML INJ IV PUSH (21:26)
[2021-09-21] MEDS: ONDANSETRON INJ 4 MG/2 ML VIAL IV PUSH (21:26)
[2021-09-21] MEDS: SODIUM CHLORIDE 0.9% IV 1,000 ML 999 ML IV CONT (21:26)
--- NOTE | 2021-09-21 21:38 | PC.NURSE ---
Pt to CT
== END 2021-09-21 22:38 | disposition home or self-care (01) ==
PROVIDERS: Emergency Provider Nurse Practitioner Family
DX: K59.00 Constipation, unspecified (principal); K58.9 Irritable bowel syndrome, unspecified; Z87.442 Personal history of urinary calculi; Z87.440 Personal history of urinary (tract) infections; Z90.721 Acquired absence of ovaries, unilateral; Z90.79 Acquired absence of other genital organ(s); F17.210 Nicotine dependence, cigarettes, uncomplicated
CPT/HCPCS: 36415; 74177; 80053; 81001; 83690; 85025; 93005; 96361; 96374; 96375; 99284; J2270; J2405; J7030; Q9967

== ENCOUNTER 2022-01-28 16:27 | Emergency (ER) | payer OTHER, SELFPAY ==
[2022-01-28 16:48] VITALS: BP 120/73; PULSE 129; RESP 16; TEMP 37.9; O2SAT 99
[2022-01-28 16:49] VITALS: BP 120/73; PULSE 129; RESP 16; TEMP 37.9; O2SAT 99
--- NOTE | 2022-01-28 17:25 | ED.URI ---
HPI - URI/Sore Throat General Chief Complaint: Upper Respiratory Infection Stated Complaint: Cough, Sore Throat Time Seen by Provider: 01/28/22 17:25 Source: patient, RN notes reviewed and old records reviewed Mode of arrival: ambulatory Limitations: no limitations History of Present Illness HPI Narrative: 31-year-old female presents to the [facility] with complaints of cough and sore throat for 7 days. Just finished amoxicillin 2 days ago. Has been taking NyQuil and DayQuil. Has taken Tylenol for her cough Related Data Home Medications Medication Instructions Recorded Confirmed apixaban 5 mg (74 tabs) tablets in 5 mg PO DAILY 01/28/22 01/28/22 a dose pack (appssavvy DVT-PE Treat 30D Start) metoclopramide HCl 10 mg tablet 10 mg PO DAILY 01/28/22 01/28/22 pantoprazole 40 mg tablet,delayed 40 mg PO DAILY 01/28/22 01/28/22 release Allergies Allergy/AdvReac Type Severity Reaction Status Date / Time bee venom protein (honey bee) Allergy Mild Swelling Verified 01/28/22 16:48 corn Allergy Unknown Rash/THROAT Verified 01/28/22 16:48 SWELLING Review of Systems Review of Systems: All systems reviewed & are unremarkable except as noted in HPI and below Constitutional: Constitutional: Reports as per HPI, Reports fatigue and Reports fever(s) Eyes: Eyes: Reports no additional eye complaints ENT: Reports as per HPI and Reports sore throat Cardiovascular: Cardiovascular: Reports no additional cardiovascular complaints, Denies chest pain and Denies dyspnea Respiratory: Respiratory: Reports as per HPI, Denies chest congestion, Reports cough and Denies dyspnea Gastrointestinal: Gastrointestinal: Reports no additional gastrointestinal complaints, Denies abdominal pain, Denies nausea and Denies vomiting Musculoskeletal: Musculoskeletal: Reports no additional musculoskeletal complaints Integumentary/Breasts: Skin/Breast: Reports system reviewed and no additional complaints, except as docu Neurologic: Reports system reviewed and no additional complaints, except as documented Psychiatric: Psychiatric: Reports no additional psychiatric complaints Allergic/Immunologic: Allergic/Immunologic: Reports no additional allergic/immunologic complaints PMFSH Past Medical History Medical History ADHD Anxiety and depression Depression History of blood transfusion IBS (irritable bowel syndrome) Kidney stones Ovarian cyst hemorrhage UTI (urinary tract infection) Surgical History Surgical History History of section History of right salpingo-oophorectomy History of tubal ligation Hx of hand surgery tendon repair left hand Family History Family History Grandparent Cancer lung grandfather Social History Social History Smoking packs per day: 1 Smoking cigarettes per day: 20.0 Years smoked: 14 Smoking pack-years: 14.00 Smoking status: Current every day smoker Tobacco type: cigarettes Second hand tobacco smoke exposure: Yes Additional smoking assessment comments: 1/2ppd x 14 years Alcohol intake: former Alcohol use details: VERY RARE Substance use: current Substance use type: marijuana Other substance usage details: daily smoking Last use: 07/03/20 Gender identity (if verbalized by the patient): Female Spiritual care concerns: No Comments At the time of my signature, I reviewed and agree with the nursing past medical, surgical, social, and family history. There is no relevant family history pertinent to the patient complaint. Exam Const: General: cooperative, comfortable, no acute distress, well developed, alert, ill appearing acutely (mild), average body habitus and well nourished Nutritional Appearance: average body habitus and well nour
== END 2022-01-28 18:08 | disposition home or self-care (01) ==
PROVIDERS: Emergency Provider Nurse Practitioner
DX: J02.0 Streptococcal pharyngitis (principal); F17.210 Nicotine dependence, cigarettes, uncomplicated
CPT/HCPCS: 87081; 87147; 87880; 99213; G0463

== ENCOUNTER 2022-02-14 14:49 | Emergency (ER) | payer OTHER, SELFPAY ==
--- NOTE | 2022-02-14 14:54 | ED.GENADULT ---
HPI - General Adult General Chief complaint: Headache Stated complaint: migrane; ears ringing; stiff neck muscle Time Seen by Provider: 02/14/22 15:02 Source: patient, RN notes reviewed and old records reviewed Mode of arrival: ambulatory Limitations: no limitations History of Present Illness HPI narrative: 31-year-old female presents to the [facility] with complaints of ?the worst headache of my life. ? States that she is hearing ?[employer]? in my ears, having photo and phonosensitivity. Left ear pain. Was able to drive self. Also complaining of generalized neck pain. States she thought we could do a scan of her head and neck here. Explained that we cannot do lab work and can only do simple x-rays. Offered her a shot of Toradol and flu test her, patient declined wanting to go the ER for further evaluation. Symptoms started yesterday. Had taken [employer] migraine relief and states it did nothing for her. Onset (ago): day(s) Related Data Home Medications Medication Instructions Recorded Confirmed metoclopramide HCl 10 mg tablet 10 mg PO DAILY 01/28/22 01/28/22 pantoprazole 40 mg tablet,delayed 40 mg PO DAILY 01/28/22 01/28/22 release dicyclomine 10 mg capsule 10 mg QID 02/14/22 02/14/22 sucralfate 1 gram tablet 1 g QID 02/14/22 02/14/22 Allergies Allergy/AdvReac Type Severity Reaction Status Date / Time bee venom protein (honey bee) Allergy Mild Swelling Verified 02/14/22 15:08 corn Allergy Unknown Rash/THROAT Verified 02/14/22 15:08 SWELLING Review of Systems Review of Systems: All systems reviewed & are unremarkable except as noted in HPI and below Constitutional: Constitutional: Reports no additional constitutional complaints and Denies fever(s) Eyes: Eyes: Reports no additional eye complaints ENT: Reports as per HPI and Reports otalgia (left ear) Cardiovascular: Cardiovascular: Reports no additional cardiovascular complaints, Denies chest pain and Denies dyspnea Respiratory: Respiratory: Reports no additional respiratory complaints, Denies chest congestion, Denies cough and Denies dyspnea Gastrointestinal: Gastrointestinal: Reports no additional gastrointestinal complaints, Denies abdominal pain, Denies nausea and Denies vomiting Musculoskeletal: Musculoskeletal: Reports no additional musculoskeletal complaints Integumentary/Breasts: Skin/Breast: Reports system reviewed and no additional complaints, except as docu Neurologic: Reports as per HPI and Reports headache(s) Psychiatric: Psychiatric: Reports no additional psychiatric complaints Allergic/Immunologic: Allergic/Immunologic: Reports no additional allergic/immunologic complaints PMFSH Past Medical History Medical History ADHD Anxiety and depression Depression History of blood transfusion IBS (irritable bowel syndrome) Kidney stones Ovarian cyst hemorrhage UTI (urinary tract infection) Surgical History Surgical History History of section History of right salpingo-oophorectomy History of tubal ligation Hx of hand surgery tendon repair left hand Family History Family History Grandparent Cancer lung grandfather Social History Social History Smoking packs per day: 1 Smoking cigarettes per day: 20.0 Years smoked: 14 Smoking pack-years: 14.00 Smoking status: Current every day smoker Tobacco type: cigarettes Second hand tobacco smoke exposure: Yes Additional smoking assessment comments: /2ppd x 14 years Alcohol intake: former Alcohol use details: VERY RARE Substance use: current Substance use type: marijuana Other substance usage details: daily smoking Last use: 07/03/20 Gender identity (if verbalized by the patient): Female Spiritual care concerns: No
[2022-02-14 14:59] VITALS: BP 134/92; PULSE 101; RESP 18; TEMP 36.5; O2SAT 99
== END 2022-02-14 15:12 | disposition short-term general hospital (02) ==
PROVIDERS: Emergency Provider Nurse Practitioner
DX: R51.9 Headache, unspecified (principal); H92.02 Otalgia, left ear; M54.2 Cervicalgia; F17.210 Nicotine dependence, cigarettes, uncomplicated
CPT/HCPCS: 99213; G0463

== ENCOUNTER 2022-02-14 15:34 | Emergency (ER) | payer OTHER, SELFPAY ==
[2022-02-14 15:48] VITALS: BP 134/70; PULSE 101; RESP 16; TEMP 36.8; O2SAT 98
[2022-02-14 16:27] LABS: Influenza A QL RT-PCR Negative (Negative); Influenza B QL RT-PCR Negative (Negative); SARS-CoV-2 RNA PCR Positive
--- NOTE | 2022-02-14 16:53 | ED.HA ---
HPI - Headache General Chief Complaint: Headache Stated Complaint: headache Time Seen by Provider: 02/14/22 16:46 History of Present Illness HPI Narrative: 31-year-old female presents to the emergency room for evaluation of a right-sided headache that began yesterday. Patient is self diagnosed migraine headaches that have been rarely. States the headache is photophobic and phonophobic. Denies any associated nausea. States is taken [id number] Excedrin Migraine headache twice since the onset with no resolution of symptoms. Denies any hearing or vision changes. Denies any head injury or trauma. Denies neck pain. Denies fever. Related Data Home Medications Medication Instructions Recorded Confirmed metoclopramide HCl 10 mg tablet 10 mg PO DAILY 01/28/22 02/14/22 pantoprazole 40 mg tablet,delayed 40 mg PO DAILY 01/28/22 02/14/22 release dicyclomine 10 mg capsule 10 mg QID 02/14/22 02/14/22 sucralfate 1 gram tablet 1 g QID 02/14/22 02/14/22 Allergies Allergy/AdvReac Type Severity Reaction Status Date / Time bee venom protein (honey bee) Allergy Mild Swelling Verified 02/14/22 17:12 corn Allergy Unknown Rash/THROAT Verified 02/14/22 17:12 SWELLING Review of Systems Review of Systems: CONSTITUTIONAL: Denies fever, chills, or sweats. EYES: Denies visual changes, redness, or discharge. ENT: Denies rhinorrhea, congestion, sore throat, or otalgia. CARDIOVASCULAR: Denies chest pain, palpitations, or edema. RESPIRATORY: Denies cough or dyspnea. GASTROINTESTINAL: Denies abdominal pain, nausea, vomiting, or diarrhea. GENITOURINARY: Denies dysuria or hematuria. SKIN: Denies rash or itching. MUSCULOSKELETAL: Denies back pain, joint pain, or myalgia. NEUROLOGIC: Reports headache PSYCHIATRIC: Denies anxiety or depression. [facility] Past Medical History Medical History ADHD Anxiety and depression Depression History of blood transfusion IBS (irritable bowel syndrome) Kidney stones Ovarian cyst hemorrhage UTI (urinary tract infection) Surgical History Surgical History History of section History of right salpingo-oophorectomy History of tubal ligation Hx of hand surgery tendon repair left hand Family History Family History Grandparent Cancer lung grandfather Social History Social History Smoking packs per day: 1 Smoking cigarettes per day: 20.0 Years smoked: 14 Smoking pack-years: 14.00 Smoking status: Current every day smoker Tobacco type: cigarettes Second hand tobacco smoke exposure: Yes Additional smoking assessment comments: 12ppd x 14 years Alcohol intake: former Alcohol use details: VERY RARE Substance use: current Substance use type: marijuana Other substance usage details: daily smoking Last use: 07/03/20 Gender identity (if verbalized by the patient): Female Spiritual care concerns: No Exam Narrative: GENERAL: Well-appearing, well-nourished, no physical limitations, and in no acute distress. HEAD: Normocephalic, atraumatic. EYES: Conjunctivae normal, PERRLA and EOMI. ENT: External nose normal, Nares clear, no rhinorrhea or epistaxis. Mucous membranes moist. Oropharynx without tonsillar hypertrophy exudate or other lesions. External ears normal, bilateral TMs normal bilaterally NECK: Supple. No meningeal signs. CHEST: Clear to auscultation. No respiratory distress. No wheezes rales or rhonchi. HEART: Regular rate and rhythm. No murmur heard. Normal peripheral pulses. ABDOMEN: Soft, nontender, nondistended, normal active bowel sounds. EXTREMITIES: Normal range of motion. No edema. No clubbing or cyanosis SKIN: Warm, dry, no rash. No noted wounds NEURO: No focal deficits. Alert and oriented x3. MAEW. CN's II-XI int
[2022-02-14] MEDS: METOCLOPRAMIDE HCL INJ 10 MG/2 ML VIAL IV PUSH (17:07)
[2022-02-14] MEDS: methylPREDNISolone SOD SUCC 125 MG VIAL IV PUSH (17:07)
[2022-02-14] MEDS: KETOROLAC 30 MG/ML VIAL (*BKC) IV PUSH (17:07)
[2022-02-14] MEDS: diphenhydrAMINE HCl INJ 50 MG/ML VIAL 25 MG IV PUSH (17:08)
[2022-02-14] MEDS: SODIUM CHLORIDE 0.9% IV 1,000 ML 999 ML IV CONT (17:08)
--- NOTE | 2022-02-25 19:55 | PC.NURSE ---
LATE ENTRY This note is being entered to document information to the patient's record. The following information was omitted on [1L NS stop time 180], by [DAYNE garcia].
== END 2022-02-14 18:00 | disposition home or self-care (01) ==
PROVIDERS: Emergency Medicine; Emergency Provider Nurse Practitioner Family
DX: U07.1 COVID-19 (principal); R51.9 Headache, unspecified; K58.9 Irritable bowel syndrome, unspecified; Z87.442 Personal history of urinary calculi; Z87.440 Personal history of urinary (tract) infections; Z90.721 Acquired absence of ovaries, unilateral; Z90.79 Acquired absence of other genital organ(s); F17.210 Nicotine dependence, cigarettes, uncomplicated
CPT/HCPCS: 87636; 96361; 96374; 96375; 99284; J1200; J1885; J2765; J2930; J7030

== ENCOUNTER 2022-02-28 11:00 | Emergency (ER) | payer OTHER, SELFPAY ==
--- NOTE | ~2022-02-28 | XR_ITS ---
EXAMINATION: XR abdomen/kub 1V DATE: 02/28/2022 11:56 INDICATION: Bilateral flank pain. TECHNIQUE: A supine view of the abdomen was obtained. COMPARISON: CT abdomen and pelvis 09/21/2021 FINDINGS: There are no dilated loops of bowel. There is a small volume of stool in the colon. There a re phleboliths in the pelvis. IMPRESSION: 1. Normal bowel gas pattern. 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
[2022-02-28 11:09] VITALS: BP 124/71; PULSE 114; RESP 16; TEMP 36.7; O2SAT 99
--- NOTE | 2022-02-28 11:24 | ED.GENADULT ---
HPI - General Adult General Chief complaint: Upper Respiratory Infection Stated complaint: cold/flu Time Seen by Provider: 02/28/22 11:24 Source: patient and RN notes reviewed Mode of arrival: ambulatory Limitations: no limitations History of Present Illness HPI narrative: 31 y/o female presented for 3 complaints. First, she endorses cough with chest congestion for 2 days. Cough is productive of green mucous at times, feels sob during coughing fits. Feels like lungs are burning and wok this morning gasping. Denies sob, wheezing, fever or chills. Not taking anything for symptoms. Denies sick contacts. Second, she endorses history of renal stones, states she has passed 2 stones over the last 2 days. Currently reports bilateral flank pain and would like evaluation to see if she has a UTI. Rates pain 08/03. Took naproxen without relief. Denies abdominal pain, hematuria, dysuria, n/v/d. Third, she reports red skin patches that she would like evaluated on the left leg, left hand and 2 spots on chest. The leg and finger drain clear fluid at times. The sites are itchy, non tender, non-draining. Denies changes to lotion, soap, detergent etc. Patient is quitting smoking down to 4 cigarettes a day and marijuana. Related Data Home Medications Medication Instructions Recorded Confirmed metoclopramide HCl 10 mg tablet 10 mg PO DAILY 01/28/22 02/28/22 pantoprazole 40 mg tablet,delayed 40 mg PO DAILY 01/28/22 02/28/22 release dicyclomine 10 mg capsule 10 mg QID 02/14/22 02/28/22 sucralfate 1 gram tablet 1 g QID 02/14/22 02/28/22 apixaban 5 mg (74 tabs) tablets in 5 mg DIRECTED 02/28/22 02/28/22 a dose pack (Eliquis DVT-PE Treat 30D Start) Allergies Allergy/AdvReac Type Severity Reaction Status Date / Time bee venom protein (honey bee) Allergy Mild Swelling Verified 02/14/22 17:12 corn Allergy Unknown Rash/THROAT Verified 02/14/22 17:12 SWELLING Review of Systems Review of Systems: see HPI [facility] Past Medical History Medical History ADHD Anxiety and depression Depression History of blood transfusion IBS (irritable bowel syndrome) Kidney stones Ovarian cyst hemorrhage UTI (urinary tract infection) Surgical History Surgical History History of section History of right salpingo-oophorectomy History of tubal ligation Hx of hand surgery tendon repair left hand Family History Family History Grandparent Cancer lung grandfather Social History Social History Smoking packs per day: 1 Smoking cigarettes per day: 20.0 Years smoked: 14 Smoking pack-years: 14.00 Smoking status: Current every day smoker Tobacco type: cigarettes Second hand tobacco smoke exposure: Yes Additional smoking assessment comments: 1/2ppd x 14 years Alcohol intake: former Alcohol use details: VERY RARE Substance use: current Substance use type: marijuana Other substance usage details: daily smoking Last use: 07/03/20 Gender identity (if verbalized by the patient): Female Spiritual care concerns: No Exam Narrative: GENERAL: well-appearing EYES: PERRLA, conjunctivae clear ENT: Mucous membranes moist. TMs pearly crawford with light reflex and clear effusion bilaterally; no tragal tenderness. Oropharynx erythematous without lesions or exudate, left tonsil enlarged 1+ no drooling, no hoarseness, no trismus, uvula midline. No tripod positioning, muffled voice, soft palate or pharyngeal wall bulging NECK: Supple. No lymphadenopathy CHEST: Clear to auscultation, breath sounds equal. No wheezing, rhonchi, rales, or stridor. No respiratory distress, speaks in full sentences. HEART: Regular rate and rhythm. No murmur heard. SKIN: Warm, dry, scattered follicules reddened/
== END 2022-02-28 12:30 | disposition home or self-care (01) ==
PROVIDERS: Emergency Provider Nurse Practitioner Family
DX: R10.9 Unspecified abdominal pain (principal); L30.9 Dermatitis, unspecified; J06.9 Acute upper respiratory infection, unspecified; F90.9 Attention-deficit hyperactivity disorder, unspecified type; F17.210 Nicotine dependence, cigarettes, uncomplicated
CPT/HCPCS: 74018; 81003; 87077; 87081; 87086; 87186; 87804; 87880; 99213; G0463

== ENCOUNTER 2022-03-28 14:47 | Emergency (ER) | payer OTHER, SELFPAY ==
[2022-03-28 15:00] VITALS: BP 130/79; PULSE 96; RESP 18; TEMP 36.4; O2SAT 100
--- NOTE | 2022-03-28 16:48 | ED.DENTAL ---
HPI - Dental/Oral General Chief complaint: Dental/Oral Stated complaint: tooth pain Time Seen by Provider: 03/28/22 16:49 Source: patient, RN notes reviewed and old records reviewed Mode of arrival: ambulatory Limitations: no limitations History of Present Illness HPI Narrative: 31 YEAR OLD FEMALE WHO PRESENTS TO [facility] with complaints of 2 week duration of dental pain to #28 tooth with noted decay and broken portion of tooth. Patient reports pain to tooth area and pain radiating to right jaw. Patient reports that she was at dentist today and while waiting to go back to room was told that her appointment had to be cancelled due to dentist having family emergency. She states that she was rescheduled in 5 days. Patient reports that she has been taking Ibuprofen with minimal improvement in pain, denies any fevers or trismus or any difficulty with her swallowing or breathing. MD Complaint: tooth pain Location: Tooth # (28) Onset (ago): week(s) (2) Duration: constant Severity scale (1-10): 9 Treatment prior to arrival: oral analgesic Related Data Home Medications Medication Instructions Recorded Confirmed metoclopramide HCl 10 mg tablet 10 mg PO DAILY 01/28/22 02/28/22 pantoprazole 40 mg tablet,delayed 40 mg PO DAILY 01/28/22 02/28/22 release dicyclomine 10 mg capsule 10 mg QID 02/14/22 02/28/22 sucralfate 1 gram tablet 1 g QID 02/14/22 02/28/22 apixaban 5 mg (74 tabs) tablets in 5 mg DIRECTED 02/28/22 02/28/22 a dose pack ([place] DVT-PE Treat 30D Start) Allergies Allergy/AdvReac Type Severity Reaction Status Date / Time bee venom protein (honey bee) Allergy Mild Swelling Verified 03/28/22 14:55 corn Allergy Unknown Rash/THROAT Verified 03/28/22 14:55 SWELLING Review of Systems Review of Systems: CONSTITUTIONAL: Denies fever, chills, or sweats. ENT: Denies rhinorrhea, congestion, sore throat, or otalgia. Reports dental pain to lower right 1st molar which has decay and broken portion of tooth CARDIOVASCULAR: Denies chest pain, palpitations, or edema. RESPIRATORY: Denies cough or dyspnea. SKIN: Denies rash or itching. MUSCULOSKELETAL: Denies myalgia. NEUROLOGIC: Denies headache All systems reviewed & are unremarkable except as noted in HPI and below PMFSH Past Medical History Medical History (Updated 03/29/22 @ 00:01 by Kelly Orellana) ADHD Anxiety and depression Depression History of blood transfusion IBS (irritable bowel syndrome) Kidney stones Ovarian cyst hemorrhage UTI (urinary tract infection) Surgical History Surgical History (Updated 03/29/22 @ 15:56 by Jeri Butler NP) History of section History of right salpingo-oophorectomy History of tubal ligation Hx of hand surgery tendon repair left hand S/P laparoscopic hysterectomy Family History Family History Grandparent Cancer lung grandfather Social History Social History Smoking packs per day: 1 Smoking cigarettes per day: 20.0 Years smoked: 14 Smoking pack-years: 14.00 Smoking status: Current every day smoker Tobacco type: cigarettes Second hand tobacco smoke exposure: Yes Additional smoking assessment comments: 1/2ppd x 14 years Alcohol intake: former Alcohol use details: VERY RARE Substance use: current Substance use type: marijuana Other substance usage details: daily smoking Last use: 07/03/20 Living arrangements: with family Gender identity (if verbalized by the patient): Female Spiritual care concerns: No Comments At time of signature, agree with nursing past medical, surgical, social and family history. There is no relevant family history pertinent to the presenting complaint Exam Narrative: GENERAL: Well-appearing, well-nourished, and in no acute distress. HEAD: Normocephalic, atraumatic. EYES: PERRLA and EOMI. ENT: Nares c
== END 2022-03-28 17:20 | disposition home or self-care (01) ==
PROVIDERS: Emergency Provider Registered Nurse
DX: K02.9 Dental caries, unspecified (principal); F17.210 Nicotine dependence, cigarettes, uncomplicated; F12.90 Cannabis use, unspecified, uncomplicated; Z79.01 Long term (current) use of anticoagulants
CPT/HCPCS: 99213; G0463

== ENCOUNTER 2022-04-13 17:24 | Emergency (ER) | payer OTHER, SELFPAY ==
--- NOTE | ~2022-04-13 | XR_ITS ---
EXAM: XR hip RT min 3V w AP pelvis DATE: HISTORY: FELT POP IN HIP WHILE GOING DOWN STAIRS . COMPARISON: 07/30/2018. FINDINGS: Normal mineralization. No fracture or dislocation. No lytic or blastic lesion. Joint space s are maintained. Unfused S1 posterior arch. No erosion or periosteal change. Multiple pelvic phlebol iths. Soft tissues within normal limits. IMPRESSION: No acute osseous finding in the pelvis or right hip. Reviewed, dictated and finalized at location K. 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
--- NOTE | ~2022-04-13 | XR_ITS ---
EXAM: XR wrist RT min 3V DATE: 04/13/2022 17:58 HISTORY: WRIST PAIN . COMPARISON: 12/18/2015. FINDINGS: Normal mineralization. No fracture or dislocation. No lytic or blastic lesion. Joint space s are maintained. No erosion or periosteal change. Soft tissues within normal limits. IMPRESSION: No acute osseous finding in the right wrist. Reviewed, dictated and finalized at location K. 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
--- NOTE | 2022-04-13 17:32 | ED.GENADULT ---
HPI - General Adult General Chief complaint: Wound/Laceration Stated complaint: Dental/Right Hip Pain Time Seen by Provider: 04/13/22 17:32 Source: patient, RN notes reviewed and old records reviewed Mode of arrival: ambulatory Limitations: no limitations History of Present Illness HPI narrative: 31-year-old female presents to the [facility] with complaints of dental pain, right hip pain, wrist pain. Was seen on March 28 with dental pain and stated that she had a dental appointment after it was canceled the same day in 5 days. Patient reports that she had her teeth filled on the at [facility] and was prescribed pain medications but still having pain Patient then reports that she was walking downstairs when she felt a pop in her hip a couple of days ago. Yesterday when she was trying to hold on while walking downstairs due to her hip pain strained her wrist. Patient currently wearing a brace Denies any trauma to the area. Denies falling. There is no bruising, swelling noted. Patient reports that she has been taken Tylenol, cannot take ibuprofen due to her Eliquis Related Data Home Medications Medication Instructions Recorded Confirmed metoclopramide HCl 10 mg tablet 10 mg PO DAILY 01/28/22 02/28/22 sucralfate 1 gram tablet 1 g QID 02/14/22 02/28/22 apixaban 5 mg (74 tabs) tablets in 5 mg DIRECTED 02/28/22 02/28/22 a dose pack (Eliquis DVT-PE Treat 30D Start) Allergies Allergy/AdvReac Type Severity Reaction Status Date / Time bee venom protein (honey bee) Allergy Mild Swelling Verified 04/13/22 17:33 corn Allergy Unknown Rash/THROAT Verified 04/13/22 17:33 SWELLING morphine AdvReac Other Verified 04/13/22 17:34 Review of Systems Review of Systems: All systems reviewed & are unremarkable except as noted in HPI and below Constitutional: Constitutional: Reports no additional constitutional complaints Eyes: Eyes: Reports no additional eye complaints ENT: Reports as per HPI and Reports mouth pain (Right upper and lower gum area) Cardiovascular: Cardiovascular: Reports no additional cardiovascular complaints, Denies chest pain and Denies dyspnea Respiratory: Respiratory: Reports no additional respiratory complaints, Denies chest congestion, Denies cough and Denies dyspnea Gastrointestinal: Gastrointestinal: Reports no additional gastrointestinal complaints, Denies abdominal pain, Denies nausea and Denies vomiting Musculoskeletal: Musculoskeletal: Reports as per HPI and Reports arthralgias (Right wrist, right hip) Integumentary/Breasts: Skin/Breast: Reports system reviewed and no additional complaints, except as docu Neurologic: Reports system reviewed and no additional complaints, except as documented Psychiatric: Psychiatric: Reports no additional psychiatric complaints Allergic/Immunologic: Allergic/Immunologic: Reports no additional allergic/immunologic complaints PMFSH Past Medical History Medical History (Updated 04/13/22 @ 18:21 by Ayana Fung APRN) ADHD Anxiety and depression Depression History of blood transfusion IBS (irritable bowel syndrome) Kidney stones Ovarian cyst hemorrhage UTI (urinary tract infection) Surgical History Surgical History History of section History of right salpingo-oophorectomy History of tubal ligation Hx of hand surgery tendon repair left hand S/P laparoscopic hysterectomy Family History Family History Grandparent Cancer lung grandfather Social History Social History Smoking packs per day: 1 Smoking cigarettes per day: 20.0 Years smoked: 14 Smoking pack-years: 14.00 Smoking status: Current every day smoker Tobacco type: cigarettes Second hand tobacco smoke exposure: Yes Additional smoking assessment comments: pd x
[2022-04-13 17:33] VITALS: BP 120/71; PULSE 137; RESP 20; TEMP 36.5; O2SAT 99
[2022-04-13 17:36] VITALS: BP 120/71; PULSE 137; RESP 20; TEMP 36.5; O2SAT 99
== END 2022-04-13 18:18 | disposition home or self-care (01) ==
PROVIDERS: Emergency Provider Nurse Practitioner
DX: K08.89 Other specified disorders of teeth and supporting structures (principal); M25.531 Pain in right wrist; M25.551 Pain in right hip; F17.210 Nicotine dependence, cigarettes, uncomplicated; K13.79 Other lesions of oral mucosa
CPT/HCPCS: 73110; 73502; 99214; G0463

== ENCOUNTER 2022-06-12 13:35 | Emergency (ER) | payer OTHER, SELFPAY ==
[2022-06-12] VITALS (7 sets, daily range): BP systolic 111–121; BP diastolic 80–85; PULSE 103–138; RESP 16–23; TEMP 37.1; O2SAT 98–99
--- NOTE | ~2022-06-12 | XR_ITS ---
[id number] INDICATION: Neck pain TECHNIQUE: 3 views of the cervical spine. FINDINGS: The cervical spine is visualized to the cervicothoracic junction. There is no prevertebral soft tiss ue swelling, listhesis, or loss of vertebral body height. Intervertebral disc spaces are normal. Th e osseous central canal is patent. No displaced cervical spine fractures are identified. IMPRESSION: 1. No significant abnormality of the cervical spine. Reviewed, dictated and finalized at location A.
--- NOTE | ~2022-06-12 | XR_ITS ---
XR shoulder RT min 2V DATE: 06/12/2022 13:57 INDICATION: Pain and limited range of motion after lifting a heavy object TECHNIQUE: 5 views of right shoulder COMPARISON: None FINDINGS: No fracture or dislocation, periosteal reaction or bone destruction. Normal alignment at th e right sternoclavicular, acromioclavicular and glenohumeral joints. No abnormal right shoulder soft tissue calcification is detected. IMPRESSION: Negative Reviewed, dictated and finalized at location B. IMPRESSION: Negative
--- NOTE | 2022-06-12 13:54 | PC.NURSE ---
Patient off unit to radiology.
[2022-06-12] MEDS: SODIUM CHLORIDE 0.9% IV 1,000 ML 999 ML IV CONT (14:30)
[2022-06-12] MEDS: diazePAM INJ (*CRX) 10 MG/2 ML SYRINGE 5 MG IV PUSH (14:31)
[2022-06-12] MEDS: KETOROLAC 30 MG/ML VIAL (*BKC) IV PUSH (14:31)
--- NOTE | 2022-06-12 15:34 | ED.GENADULT ---
HPI - General Adult General Chief complaint: Extremity Injury, Upper Stated complaint: right shoulder pain Time Seen by Provider: 06/12/22 13:50 History of Present Illness HPI narrative: Patient is a 31-year-old female who presents ER with right shoulder pain. Sharp and tearing sensation that occurred a week and a half ago while trying to lift a 5 gallon water bucket while camping. Pain has been persistent. Has pain with forward flexion and abduction at the shoulder. No numbness or tingling down the arm. No chest pain or chest pressure or difficulty breathing. Related Data Home Medications Medication Instructions Recorded Confirmed metoclopramide HCl 10 mg tablet 10 mg PO DAILY 01/28/22 04/13/22 sucralfate 1 gram tablet 1 g QID 02/14/22 04/13/22 apixaban 5 mg (74 tabs) tablets in 5 mg DIRECTED 02/28/22 04/13/22 a dose pack (EliquPuzzlium DVT-PE Treat 30D Start) Allergies Allergy/AdvReac Type Severity Reaction Status Date / Time bee venom protein (honey bee) Allergy Mild Swelling Verified 04/13/22 17:33 corn Allergy Unknown Rash/THROAT Verified 04/13/22 17:33 SWELLING morphine AdvReac Other Verified 04/13/22 17:34 Review of Systems Review of Systems: All systems reviewed & are unremarkable except as noted in HPI and below Constitutional: Constitutional: Denies chills, Denies fatigue and Denies fever(s) Cardiovascular: Cardiovascular: Denies chest pain, Denies radiating jaw, neck or arm pain and Denies slow heart rate Respiratory: Respiratory: Denies cough and Denies dyspnea Gastrointestinal: Gastrointestinal: Denies abdominal pain, Denies nausea and Denies vomiting Musculoskeletal: Musculoskeletal: Denies myalgias, Reports arthralgias and Denies joint swelling Neurologic: Denies focal weakness and Denies numbness PMFSH Past Medical History Medical History (Updated 06/12/22 @ 16:44 by Austin Osborne MD) ADHD Anxiety and depression Depression History of blood transfusion IBS (irritable bowel syndrome) Kidney stones Ovarian cyst hemorrhage UTI (urinary tract infection) Surgical History Surgical History History of section History of right salpingo-oophorectomy History of tubal ligation Hx of hand surgery tendon repair left hand S/P laparoscopic hysterectomy Family History Family History Grandparent Cancer lung grandfather Social History Social History Smoking packs per day: 1 Smoking cigarettes per day: 20.0 Years smoked: 14 Smoking pack-years: 14.00 Smoking status: Current every day smoker Tobacco type: cigarettes Second hand tobacco smoke exposure: Yes Additional smoking assessment comments: 1/2ppd x 14 years Alcohol intake: former Alcohol use details: VERY RARE Substance use: current Substance use type: marijuana Other substance usage details: daily smoking Last use: 07/03/20 Living arrangements: with family Gender identity (if verbalized by the patient): Female Spiritual care concerns: No Exam Narrative: GENERAL: Well-appearing, well-nourished, and in no acute distress. HEAD: Normocephalic, atraumatic. ENT: Mucous membranes moist. CHEST: Clear to auscultation. No respiratory distress. HEART: Regular rate and rhythm. Normal peripheral pulses. EXTREMITIES: Very tender to palpation over the right trapezius and rhomboid musculature. Normal range of motion of the shoulder with internal/external rotation. Patient has significant pain with abduction and forward flexion. She is able to hold her arm up but is in discomfort. No bruising or abrasions to the area. Normal left upper extremity. SKIN: Warm, dry, no rash. NEURO: No focal deficits. Alert and oriented x3. PSYCH: Normal mood and affect. Course Course Emergency Course: Patient with improve
== END 2022-06-12 17:01 | disposition home or self-care (01) ==
PROVIDERS: Emergency Provider Emergency Medicine
DX: S46.811A Strain of other muscles, fascia and tendons at shoulder and upper arm level, right arm, initial encounter (principal); K58.9 Irritable bowel syndrome, unspecified; F17.210 Nicotine dependence, cigarettes, uncomplicated; Z87.442 Personal history of urinary calculi; Z87.440 Personal history of urinary (tract) infections; Z79.01 Long term (current) use of anticoagulants; Z90.721 Acquired absence of ovaries, unilateral; Z90.79 Acquired absence of other genital organ(s); Z90.710 Acquired absence of both cervix and uterus; X50.0XXA Overexertion from strenuous movement or load, initial encounter
CPT/HCPCS: 72040; 73030; 96361; 96374; 96375; 99284; A4565; J1885; J3360; J7030

== ENCOUNTER 2022-06-21 18:51 | Emergency (ER) | payer OTHER, SELFPAY ==
[2022-06-21 19:01] VITALS: BP 140/79; PULSE 137; RESP 16; TEMP 37.1; O2SAT 99
--- NOTE | 2022-06-21 19:23 | ED.URI ---
HPI - URI/Sore Throat General Chief Complaint: Upper Respiratory Infection Stated Complaint: sore throat Time Seen by Provider: 06/21/22 19:24 History of Present Illness HPI Narrative: 31 y/o female presented for 2 complaints. First, c/o sore throat for over one week. Reports painful swallow and has not been able to tolerate PO intake due to the pain. Reports subjective fever/chills. Took Tylenol today. She is maintaining secretions. Denies sick contacts. Denies n/v/d, sob, or wheezing. Second, patient reports painful 'lump' to the right under arm worsening for over one week. Denies drainage from the site. Has not applied anything to the site. Related Data Home Medications Medication Instructions Recorded Confirmed amitriptyline 25 mg tablet 25 mg PO DAILY 06/21/22 06/21/22 dicyclomine 10 mg capsule 10 mg PO DIRECTED 06/21/22 06/21/22 ondansetron 4 mg disintegrating 4 mg PO DIRECTED 06/21/22 06/21/22 tablet pantoprazole 40 mg tablet,delayed 40 mg PO DAILY 06/21/22 06/21/22 release paroxetine HCl 10 mg tablet 10 mg PO DAILY 06/21/22 06/21/22 Allergies Allergy/AdvReac Type Severity Reaction Status Date / Time bee venom protein (honey bee) Allergy Mild Swelling Verified 06/21/22 19:03 corn Allergy Unknown Rash/THROAT Verified 06/21/22 19:03 SWELLING morphine AdvReac Other Verified 06/21/22 19:03 Review of Systems Review of Systems: CONSTITUTIONAL: Denies body aches, fever, chills, or sweats. EYES: Denies visual changes, redness, or discharge. ENT: Reports sore throat, rhinorrhea, congestion, left otalgia. CARDIOVASCULAR: Denies chest pain, palpitations, or edema. RESPIRATORY: Denies dyspnea. GASTROINTESTINAL: Denies abdominal pain, nausea, vomiting, or diarrhea. SKIN: Reports axilla skin lump MUSCULOSKELETAL: Denies back pain, joint pain, or myalgia. NEUROLOGIC: Denies headache PMFSH Past Medical History Medical History ADHD Anxiety and depression Depression History of blood transfusion IBS (irritable bowel syndrome) Kidney stones Ovarian cyst hemorrhage UTI (urinary tract infection) Surgical History Surgical History History of section History of right salpingo-oophorectomy History of tubal ligation Hx of hand surgery tendon repair left hand S/P laparoscopic hysterectomy Family History Family History Grandparent Cancer lung grandfather Social History Social History Smoking packs per day: 1 Smoking cigarettes per day: 20.0 Years smoked: 14 Smoking pack-years: 14.00 Smoking status: Current every day smoker Tobacco type: cigarettes Second hand tobacco smoke exposure: Yes Additional smoking assessment comments: 1/2ppd x 14 years Alcohol intake: former Alcohol use details: VERY RARE Substance use: current Substance use type: marijuana Other substance usage details: daily smoking Last use: 07/03/20 Living arrangements: with family Gender identity (if verbalized by the patient): Female Spiritual care concerns: No Exam Narrative: GENERAL: mildly Ill-appearing, no acute distress. EYES: conjunctivae clear ENT: Mucous membranes moist. TMs pearly crawford with normal light reflex and clear effusion bilaterally; no tragal tenderness. Oropharynx erythematous, left tonsil enlarged with white exudate. No drooling, no hoarseness, no trismus, uvula midline. No tripod positioning, hot potato voice, or soft palate swelling. NECK: Supple. Left anterior cervical lymphadenopathy CHEST: Clear to auscultation, breath sounds equal. No respiratory distress, speaks in full sentences. HEART: Regular rate and rhythm. No murmur heard. SKIN: Warm, dry, Right axilla with approx 0.5cm diameter slightly erythematous tende
== END 2022-06-21 19:38 | disposition short-term general hospital (02) ==
LOC: EXPCOLL 18:55
PROVIDERS: Emergency Provider Nurse Practitioner Family; PCP Emergency Medicine
DX: J35.1 Hypertrophy of tonsils (principal); F17.210 Nicotine dependence, cigarettes, uncomplicated; F41.9 Anxiety disorder, unspecified; F32.A Depression, unspecified
CPT/HCPCS: 87880; 99212; 99213; G0463

== ENCOUNTER 2022-06-21 20:35 | Emergency (ER) | payer OTHER, SELFPAY ==
--- NOTE | ~2022-06-21 | CT_ITS ---
EXAMINATION: CT soft tissue neck w con DATE: 06/21/2022 21:49 INDICATION: Tonsillar abscess. TECHNIQUE: Computed tomography (CT) of the neck was performed with 75 mL Omnipaque-350 intravenous co ntrast. Automated exposure control and iterative reconstruction technique were employed. The dose-duran gth product was 623.34 mGy-cm. COMPARISON: CT neck 09/03/2021 FINDINGS: The palatine tonsils and adenoids are enlarged. No abscess. There are mildly enlarged inter nal jugular chain lymph nodes bilaterally. There is thymic hyperplasia in the anterior mediastinum. T here is mild mucosal thickening in the ethmoid sinuses. The mastoid air cells are normal. There is mi ld cervical spondylosis. IMPRESSION: 1. Enlarged palatine tonsils and adenoids. No abscess. 2. Mild bilateral cervical lymphadenopathy, likely reactive. Reviewed, dictated and finalized at location E.
[2022-06-21 20:53] VITALS: BP 146/76; PULSE 130; RESP 20; TEMP 36.8; O2SAT 99
[2022-06-21 21:37] LABS: Basophils Percent Auto 0.1 % (0.2-1.2); Eosinophils Percent Auto 0.5 % (0-4.4); Hematocrit 37.4 % (37.0-47.0); Hemoglobin 11.9 g/dL (12.0-15.0); Immature Granulocyte Absolute 0.04 K/mm3 (0.00-0.031); Immature Granulocyte Percent A 0.5 % (0-0.5); Lymphocytes Absolute Auto 1.87 K/mm3 (0.9-3.2); Lymphocytes Percent Auto 21.2 % (18.3-44.2); Mean Corpuscular HGB Conc 31.8 g/dl (32-36); Mean Corpuscular Hemoglobin 26.6 pg (26-34); Mean Corpuscular Volume 83.7 fl (80-100); Mean Platelet Volume 9.2 fl (7.4-10.4); Monocytes Absolute Auto 0.8 K/mm3 (0.1-0.6); Monocytes Percent Auto 8.5 % (2.6-8.5); Neutrophils Absolute Auto 6.1 K/mm3 (1.3-6.7); Neutrophils Percent Auto 69.2 % (45.5-73.1); Platelet Count Result 262 k/mm3 (150-375); Red Blood Count 4.47 M/mm3 (4.2-5.4); Red Cell Distribution Width 13.3 % (11.5-14.5); White Blood Count 8.8 K/mm3 (4.5-10.0)
[2022-06-21 22:05] LABS: Alanine Aminotransferase 26 U/L (6-35); Albumin Level 4.5 g/dL (3.5-5.1); Alkaline Phosphatase 72 U/L (38-126); Anion Gap 7 mmol/L (8-16); Aspartate Amino Transferase 25 U/L (14-36); Bilirubin,Total 0.4 mg/dL (0.2-1.3); Blood Urea Nitrogen 15 mg/dL (7-17); Calcium 9.9 mg/dL (8.4-10.2); Carbon Dioxide 31 mmol/L (22-30); Chloride 104 mmol/L (98-107); Estimated CRCL calculation 116 ml/min; Estimated Glomerular Filt Rate > 60; Glucose 108 mg/dL (65-110); Potassium 4.1 mmol/L (3.4-5.0); Sodium 142 mmol/L (137-145)
[2022-06-22] VITALS (11 sets, daily range): BP systolic 118–140; BP diastolic 71–86; PULSE 121; RESP 19; TEMP 37; O2SAT 95–100
[2022-06-22] MEDS: KETOROLAC 30 MG/ML VIAL (*BKC) IV PUSH (01:19)
[2022-06-22] MEDS: LIDOCAINE HCL 2% VISC SOLN 15 ML UDC PO (01:20)
--- NOTE | 2022-06-22 03:02 | ED.SKABFB ---
HPI - Skin/Abscess/Foreign Bdy General Chief complaint: Skin/Abscess/Foreign Body Stated complaint: urgent care referral, swelling tonsils Time Seen by Provider: 06/21/22 23:45 History of Present Illness HPI narrative: This is a 31-year-old female who denies significant past medical history, presents to the emergency department with sore throat. She was seen at an urgent care swabbed for rapid strep that was reportedly negative. She was sent for CT of the neck to evaluate for abscess. She complains of sharp throat pain rated 6/10. She denies difficulty breathing, swallowing or drooling. Related Data Home Medications Medication Instructions Recorded Confirmed amitriptyline 25 mg tablet 25 mg PO DAILY 06/21/22 06/21/22 dicyclomine 10 mg capsule 10 mg PO DIRECTED 06/21/22 06/21/22 ondansetron 4 mg disintegrating 4 mg PO DIRECTED 06/21/22 06/21/22 tablet pantoprazole 40 mg tablet,delayed 40 mg PO DAILY 06/21/22 06/21/22 release paroxetine HCl 10 mg tablet 10 mg PO DAILY 06/21/22 06/21/22 Allergies Allergy/AdvReac Type Severity Reaction Status Date / Time bee venom protein (honey bee) Allergy Mild Swelling Verified 06/21/22 20:36 corn Allergy Unknown Rash/THROAT Verified 06/21/22 20:36 SWELLING morphine AdvReac Other Verified 06/21/22 20:36 [email or web address] [From Ambien] AdvReac Hallucinati Verified 06/21/22 20:36 ng Review of Systems Review of Systems: CONSTITUTIONAL: Denies fever, chills, or sweats. ENT: Sore throat, denies rhinorrhea or congestion CARDIOVASCULAR: Denies chest pain, palpitations, or edema. RESPIRATORY: Denies cough or dyspnea. GASTROINTESTINAL: Denies abdominal pain, nausea, vomiting, or diarrhea.. MUSCULOSKELETAL: Denies back pain, joint pain, or myalgia. NEUROLOGIC: Denies headache, numbness, dizziness, or weakness. PSYCHIATRIC: Denies anxiety or depression. [facility] Past Medical History Medical History ADHD Anxiety and depression Depression History of blood transfusion IBS (irritable bowel syndrome) Kidney stones Ovarian cyst hemorrhage UTI (urinary tract infection) Surgical History Surgical History History of section History of right salpingo-oophorectomy History of tubal ligation Hx of hand surgery tendon repair left hand S/P laparoscopic hysterectomy Family History Family History Grandparent Cancer lung grandfather Social History Social History Smoking packs per day: 1 Smoking cigarettes per day: 20.0 Years smoked: 14 Smoking pack-years: 14.00 Smoking status: Current every day smoker Tobacco type: cigarettes Second hand tobacco smoke exposure: Yes Additional smoking assessment comments: 1/2ppd x 14 years Alcohol intake: former Alcohol use details: VERY RARE Substance use: current Substance use type: marijuana Other substance usage details: daily smoking Last use: 07/03/20 Living arrangements: with family Gender identity (if verbalized by the patient): Female Spiritual care concerns: No Exam Narrative: GENERAL: Well-developed, well-nourished, and in no acute distress. HEAD: Normocephalic, atraumatic. EYES: PERRLA and EOMI. ENT: Nares clear, no rhinorrhea or epistaxis. Mucous membranes moist. Oropharynx with erythema, left tonsillar hypertrophy and exudate. The uvula is midline. There does not appear to be swelling of the posterior pharynx. Bilateral TMs pearly crawford nonbulging NECK: Supple. Bilateral anterior cervical lymphadenopathy without other masses. No carotid bruits or JVD CHEST: Clear to auscultation. No respiratory distress. No wheezes rales or rhonchi HEART: Regular rate and rhythm. No murmur heard. Normal peripheral pulses. EXTREMITIES: Normal range of motion.
--- NOTE | 2022-06-22 03:40 | PC.NURSE ---
Spoke to pt about discharge instructions and receiving a dose of Penicillin. Pt denied the shot at this time because she wants stronger pain medication. pt asked to speak with the doctor and is refusing penicillin shot and to be discharged at this time. ben day artist aware.
[2022-06-22] MEDS: PENICILLIN G BENZATHINE 1,200,000 UNITS/2 ML SYRINGE 1200000 UNITS IM (04:07)
== END 2022-06-22 04:30 | disposition home or self-care (01) ==
PROVIDERS: Emergency Medicine; Emergency Provider Preventive Medicine Aerospace Medicine; PCP Emergency Medicine
DX: J02.9 Acute pharyngitis, unspecified (principal); F90.9 Attention-deficit hyperactivity disorder, unspecified type; F41.9 Anxiety disorder, unspecified; F32.A Depression, unspecified; K58.9 Irritable bowel syndrome, unspecified; Z87.442 Personal history of urinary calculi; Z87.440 Personal history of urinary (tract) infections; Z90.710 Acquired absence of both cervix and uterus; F17.210 Nicotine dependence, cigarettes, uncomplicated
CPT/HCPCS: 36415; 70491; 80053; 85025; 87880; 96365; 96372; 96375; 99284; J0131; J0561; J1100; J1885; Q9967

== ENCOUNTER → 2022-09-16 14:50 | Outpatient (CLI) | payer OTHER, SELFPAY ==
--- NOTE | ~2022-09-16 | XR_ITS ---
Right wrist Technique: PA, oblique, lateral, and ulnar deviation views were obtained. Clinical History: Pain Findings: No acute fracture or dislocation is seen. Osseous alignment is anatomic. Joint spaces are p reserved. Soft tissues are unremarkable. Impression: Unremarkable right wrist radiographs. Reviewed, dictated and finalized at location . Impression: Unremarkable right wrist radiographs.
--- NOTE | ~2022-09-16 | XR_ITS ---
Supine and upright views of the abdomen Clinical history: Kidney stone COMPARISON: 02/28/2022 Findings: Bowel gas pattern is nonspecific. No evidence for obstruction or free air. Possible punctat e right upper pole renal stone present. No definite left renal stone seen.. Calcified pelvic phleboli ths, similar to prior exam. Osseous structures are intact. Impression: Possible punctate right upper pole renal stone. Reviewed, dictated and finalized at location . Impression: Possible punctate right upper pole renal stone.
== END ==
PROVIDERS: PCP Emergency Medicine; Visit Provider Emergency Medicine
DX: M25.531 Pain in right wrist (principal); N20.0 Calculus of kidney
CPT/HCPCS: 73110; 74018

== ENCOUNTER 2022-09-18 11:30 | Emergency (ER) | payer OTHER, SELFPAY ==
[2022-09-18] VITALS (15 sets, daily range): BP systolic 102–128; BP diastolic 44–84; PULSE 78–121; RESP 18–20; TEMP 36.8; O2SAT 95–100
--- NOTE | ~2022-09-18 | CT_ITS ---
EXAMINATION: CT abdomen pelvis w con DATE: 09/18/2022 18:10 INDICATION: Abdominal pain TECHNIQUE: Computed tomography (CT) of the abdomen and pelvis was performed with 100 cc Omnipaque 350 intravenous contrast. The dose-length product was 445.67 mGy-cm. Automated exposure control and iterative reconstruction technique were employed. COMPARISON: CT dated 09/21/2021. FINDINGS: Lung bases are unremarkable. Heart size normal. No significant pleural or pericardial effus ion. The liver, spleen, pancreas, adrenal glands and left kidney are unremarkable. There is a 3 mm no nobstructing right renal stone. There are low-density lesions in the right kidney, most likely benign cysts. Gallbladder is present. Nonobstructive bowel gas pattern. Normal appendix. Colonic diverticul osis without evidence for diverticulitis. Status post hysterectomy. No abnormal pelvic masses or flui d collections. No significant vascular abnormality. No lymphadenopathy. No acute osseous abnormality. IMPRESSION: 1. Nonobstructing right nephrolithiasis. Reviewed, dictated and finalized at location A.
--- NOTE | ~2022-09-18 | US_ITS ---
EXAMINATION: US right upper quadrant DATE: 09/18/2022 16:48 INDICATION: Right upper quadrant abdominal pain TECHNIQUE: Multiple grayscale and Doppler ultrasound images of the abdomen were obtained. COMPARISON: None FINDINGS: The pancreatic head and body are normal in appearance. The pancreatic tail is not visualized. The vi sualized proximal inferior vena cava is normal. Liver has normal echogenicity and contour, with a smo oth surface. No liver lesion identified. No intrahepatic biliary duct dilation suspected. Portal veno us flow was seen in the hepatopetal, normal direction and has normal Doppler waveform. The gallbladde r is normal in appearance. There is no cholelithiasis. Borderline dilation of the proximal common bi le duct which measures up to 7 mm but which appears to gradually taper distally with no evident obstr ucting stone or mass in this of uncertain significance. Sonographic Randolph sign was reported as negat jamin by the comb winder. IMPRESSION: 1. Mild dilation of the common bile duct which measures up to 7 mm proximally but which tapers distal ly with no evident obstructing mass or cholelithiasis/choledocholithiasis. Correlate with liver funct ion tests and if there is concern for biliary obstruction could consider MRCP for further evaluation. Reviewed, dictated and finalized at location A. IMPRESSION: 1. Mild dilation of the common bile duct which measures up to 7 mm proximally b ut which tapers distally with no evident obstructing mass or cholelithiasis/cho ledocholithiasis. Correlate with liver function tests and if there is concern f or biliary obstruction could consider MRCP for further evaluation.
[2022-09-18 11:47] LABS: Basophils Percent Auto 0.2 % (0.2-1.2); Eosinophils Absolute Auto 0.1 K/mm3 (0-0.3); Eosinophils Percent Auto 1.6 % (0-4.4); Hematocrit 39.7 % (37.0-47.0); Hemoglobin 12.8 g/dL (12.0-15.0); Lymphocytes Absolute Auto 2.11 K/mm3 (0.9-3.2); Lymphocytes Percent Auto 37.2 % (18.3-44.2); Mean Corpuscular HGB Conc 32.2 g/dl (32-36); Mean Corpuscular Hemoglobin 26.3 pg (26-34); Mean Corpuscular Volume 81.7 fl (80-100); Mean Platelet Volume 8.9 fl (7.4-10.4); Monocytes Absolute Auto 0.4 K/mm3 (0.1-0.6); Monocytes Percent Auto 6.3 % (2.6-8.5); Neutrophils Absolute Auto 3.1 K/mm3 (1.3-6.7); Neutrophils Percent Auto 54.7 % (45.5-73.1); Platelet Count Result 272 k/mm3 (150-375); Red Blood Count 4.86 M/mm3 (4.2-5.4); Red Cell Distribution Width 12.7 % (11.5-14.5); White Blood Count 5.7 K/mm3 (4.5-10.0)
[2022-09-18 11:57] LABS: Alanine Aminotransferase 29 U/L (6-35); Albumin Level 4.6 g/dL (3.5-5.1); Alkaline Phosphatase 73 U/L (38-126); Anion Gap 14 mmol/L (8-16); Aspartate Amino Transferase 28 U/L (14-36); Bilirubin,Total 0.3 mg/dL (0.2-1.3); Blood Urea Nitrogen 15 mg/dL (7-17); Calcium 9.8 mg/dL (8.4-10.2); Carbon Dioxide 18 mmol/L (22-30); Chloride 108 mmol/L (98-107); Estimated CRCL calculation 115 ml/min; Estimated Glomerular Filt Rate > 60; Glucose 125 mg/dL (65-110); Lipase 111 U/L (23-300); Potassium 3.8 mmol/L (3.4-5.0); Sodium 140 mmol/L (137-145)
[2022-09-18 12:10] LABS: Appearance Urine Clear (Clear); Bilirubin Urine Negative (Negative); Blood Urine Negative (Negative); Color Urine Yellow (Yellow); Glucose Urine UA Negative (Negative); Ketones Urine Negative (Negative); Leukocyte Esterase Ur Negative LEU/UL (Negative); Nitrate Urine Negative (Negative); Protein Urine Negative (Negative); Specific Grav Ur 1.016 (1.001-1.035); Urobilinogen Urine 0.2 mg/dL (<2.0); pH Urine 8.5 (5.0-9.0)
[2022-09-18 12:27] LABS: Add Urine Microscopic? NO
--- NOTE | 2022-09-18 12:35 | PC.NURSE ---
Patient ambulated out of department to smoke a cigarette with steady gate
--- NOTE | 2022-09-18 13:46 | PC.NURSE ---
Patient has walked outside to smoke X2. Patient presents to the desk stating that my gallbladder is about to burst and states she was unhappy about her wait time when other patient's have gone back to rooms before her. Patient educated on triage process in the ED and this RN explained that unfortunately the wait time can be longer than expected due to other patient's coming in.
[2022-09-18] MEDS: KETOROLAC 30 MG/ML VIAL (*BKC) IV PUSH (17:24)
[2022-09-18] MEDS: FAMOTIDINE 20 MG/2 ML VIAL IV PUSH (17:24)
[2022-09-18] MEDS: ONDANSETRON INJ 4 MG/2 ML VIAL IV PUSH (17:24)
[2022-09-18] MEDS: SODIUM CHLORIDE 0.9% IV 1,000 ML 999 ML IV CONT (17:24)
[2022-09-18] MEDS: DICYCLOMINE HCL INJ 20 MG/2 ML VIAL IM (18:17)
[2022-09-18] MEDS: fentaNYL CITRATE INJ (*CRX) 100 MCG/2 ML VIAL 50 MCG IV PUSH (18:18)
--- NOTE | 2022-09-18 18:48 | ED.GENADULT ---
HPI - General Adult General Chief complaint: Abdominal Pain Stated complaint: abdominal pain Time Seen by Provider: 09/18/22 15:32 History of Present Illness HPI narrative: Dominique Vazquez is a 32 y/o female with reports of eating a cheeseburger yesterday and after that started to have right upper quadrant pain with nausea. She describes her pain as a stabbing pain. She states that she has had this intermittent gallbladder attacks for a year and everytime it happens when she goes to the hospital they tell her everything is fine and d/c her home. She reports that she has a GI physician and has had scopes/ including an MRCP and they could not find anything wrong. Related Data Home Medications Medication Instructions Recorded Confirmed amitriptyline 25 mg tablet 25 mg PO DAILY 06/21/22 06/21/22 dicyclomine 10 mg capsule 10 mg PO DIRECTED 06/21/22 06/21/22 ondansetron 4 mg disintegrating 4 mg PO DIRECTED 06/21/22 06/21/22 tablet pantoprazole 40 mg tablet,delayed 40 mg PO DAILY 06/21/22 06/21/22 release paroxetine HCl 10 mg tablet 10 mg PO DAILY 06/21/22 06/21/22 Allergies Allergy/AdvReac Type Severity Reaction Status Date / Time bee venom protein (honey bee) Allergy Mild Swelling Verified 09/18/22 11:30 corn Allergy Unknown Rash/THROAT Verified 09/18/22 11:30 SWELLING morphine AdvReac Other Verified 09/18/22 11:30 [email or web address] [From Ambien] AdvReac Hallucinati Verified 09/18/22 11:30 ng Review of Systems Review of Systems: CONSTITUTIONAL: Denies fever, chills, or sweats. EYES: Denies visual changes, redness, or discharge. ENT: Denies rhinorrhea, congestion, sore throat, or otalgia. CARDIOVASCULAR: Denies chest pain, palpitations, or edema. RESPIRATORY: Denies cough or dyspnea. GASTROINTESTINAL:Reports right upper abdominal pain with slight nausea, vomiting, and one episode of diarrhea. GENITOURINARY: Denies dysuria or hematuria. SKIN: Denies rash or itching. MUSCULOSKELETAL: Denies back pain, joint pain, or myalgia. NEUROLOGIC: Denies headache, numbness, dizziness, or weakness. PSYCHIATRIC: Denies anxiety or depression. PMFSH Past Medical History Medical History ADHD Anxiety and depression Depression History of blood transfusion IBS (irritable bowel syndrome) Kidney stones Ovarian cyst hemorrhage UTI (urinary tract infection) Surgical History Surgical History History of section History of right salpingo-oophorectomy History of tubal ligation Hx of hand surgery tendon repair left hand S/P laparoscopic hysterectomy Family History Family History Grandparent Cancer lung grandfather Social History Social History Smoking packs per day: 1 Smoking cigarettes per day: 20.0 Years smoked: 14 Smoking pack-years: 14.00 Smoking status: Current every day smoker Tobacco type: cigarettes Second hand tobacco smoke exposure: Yes Additional smoking assessment comments: 1/2ppd x 14 years Alcohol intake: former Alcohol use details: VERY RARE Substance use: current Substance use type: marijuana Other substance usage details: daily smoking Last use: 07/03/20 Living arrangements: with family Gender identity (if verbalized by the patient): Female Spiritual care concerns: No Exam Narrative: GENERAL: Well-appearing, well-nourished, and in no acute distress. HEAD: Normocephalic, atraumatic. EYES: PERRLA and EOMI. ENT: Nares clear, no rhinorrhea or epistaxis. Mucous membranes moist. Oropharynx without tonsillar hypertrophy exudate or other lesions. NECK: Supple. No adenopathy or masses. No carotid bruits or JVD CHEST: Clear to auscultation. No respiratory distress. No wheezes rales or rhonchi HEART: Regular rate and r
== END 2022-09-18 19:51 | disposition home or self-care (01) ==
PROVIDERS: General Practice; Emergency Provider Nurse Practitioner Family; PCP Emergency Medicine
DX: K29.70 Gastritis, unspecified, without bleeding (principal); N20.0 Calculus of kidney; K58.9 Irritable bowel syndrome, unspecified; F90.9 Attention-deficit hyperactivity disorder, unspecified type; F41.9 Anxiety disorder, unspecified; F32.A Depression, unspecified; F17.210 Nicotine dependence, cigarettes, uncomplicated; Z87.442 Personal history of urinary calculi; Z87.440 Personal history of urinary (tract) infections; Z90.721 Acquired absence of ovaries, unilateral; Z90.79 Acquired absence of other genital organ(s); Z90.710 Acquired absence of both cervix and uterus
CPT/HCPCS: 36415; 74177; 76705; 80053; 81003; 81025; 83690; 85025; 96361; 96372; 96374; 96375; 99284; J0500; J1885; J2405; J3010; J7030; Q9967

== ENCOUNTER 2022-12-03 16:52 | Emergency (ER) | payer OTHER, SELFPAY ==
--- NOTE | 2022-12-03 16:55 | ED.WOUNDLAC ---
HPI - Wound/Laceration General Chief Complaint: Wound/Laceration Stated Complaint: Wound Check Time Seen by Provider: 12/03/22 16:55 Source: patient Mode of arrival: ambulatory Limitations: no limitations History of Present Illness HPI narrative: Patient is a 32-year-old female who presents with wound to right hand. Patient was bit by dog 11/25 was seen at another urgent care. Wound was loosely approximated with 1 suture and patient was given Augmentin. Patient has 1 day left of Augmentin. Reports itching, irritation and pain to site. Denies any drainage from wound. Does report mild redness surrounding area Related Data Home Medications Medication Instructions Recorded Confirmed pantoprazole 40 mg tablet,delayed 40 mg PO DAILY 06/21/22 06/21/22 release paroxetine HCl 10 mg tablet 10 mg PO DAILY 06/21/22 06/21/22 Lamictal 12/03/22 12/03/22 amoxicillin 875 mg-potassium tablet 12/03/22 clavulanate 125 mg tablet Allergies Allergy/AdvReac Type Severity Reaction Status Date / Time bee venom protein (honey bee) Allergy Mild Swelling Verified 12/03/22 17:00 corn Allergy Unknown Rash/THROAT Verified 12/03/22 17:00 SWELLING morphine AdvReac Other Verified 12/03/22 17:00 [email or web address] [From Ambien] AdvReac Hallucinati Verified 12/03/22 17:00 ng Review of Systems Review of Systems: All systems reviewed & are unremarkable except as noted in HPI and below Constitutional: Constitutional: Denies body ache(s), Denies chills, Denies fatigue, Denies fever(s), Denies headache(s), Denies malaise and Denies weakness Eyes: Eyes: Denies blurry vision, Denies irritation and Denies loss of vision ENT: Denies otalgia, Denies headache(s), Denies nasal discharge, Denies sinus pain and Denies sore throat Cardiovascular: Cardiovascular: Denies chest pain, Denies irregular heart rhythm and Denies dyspnea Respiratory: Respiratory: Denies dyspnea Gastrointestinal: Gastrointestinal: Denies abdominal pain, Denies melena, Denies hematochezia, Denies diarrhea, Denies nausea and Denies vomiting Musculoskeletal: Musculoskeletal: Denies back pain, Denies myalgias and Denies arthralgias Integumentary/Breasts: Skin/Breast: Denies pruritus, Denies rash and Reports wounds Neurologic: Denies headache(s), Denies loss of vision and Denies weakness Psychiatric: Psychiatric: Reports no additional psychiatric complaints Endocrine: Endocrine: Denies fatigue PMFSH Past Medical History Medical History ADHD Anxiety and depression Depression History of blood transfusion IBS (irritable bowel syndrome) Kidney stones Ovarian cyst hemorrhage UTI (urinary tract infection) Surgical History Surgical History History of section History of right salpingo-oophorectomy History of tubal ligation Hx of hand surgery tendon repair left hand S/P laparoscopic hysterectomy Family History Family History Grandparent Cancer lung grandfather Social History Social History Smoking packs per day: 1 Smoking cigarettes per day: 20.0 Years smoked: 14 Smoking pack-years: 14.00 Smoking status: Current every day smoker Tobacco type: cigarettes Second hand tobacco smoke exposure: Yes Additional smoking assessment comments: 1/2ppd x 14 years Alcohol intake: former Alcohol use details: VERY RARE Substance use: current Substance use type: marijuana Other substance usage details: daily smoking Last use: 07/03/20 Living arrangements: with family Gender identity (if verbalized by the patient): Female Spiritual care concerns: No Comments At time of signature, agree with nursing past medical, surgical, social and family history. There is no relevant family history pertinent to the pr
[2022-12-03 16:59] VITALS: BP 111/66; PULSE 102; RESP 16; TEMP 37.4; O2SAT 99
[2022-12-03 17:01] VITALS: BP 111/66; PULSE 102; RESP 16; TEMP 37.4; O2SAT 99
== END 2022-12-03 17:30 | disposition home or self-care (01) ==
PROVIDERS: Emergency Provider Nurse Practitioner Family; PCP Emergency Medicine
DX: S61.411D Laceration without foreign body of right hand, subsequent encounter (principal); L03.113 Cellulitis of right upper limb; W54.0XXD Bitten by dog, subsequent encounter; F41.9 Anxiety disorder, unspecified; F32.A Depression, unspecified; F17.210 Nicotine dependence, cigarettes, uncomplicated; F12.90 Cannabis use, unspecified, uncomplicated
CPT/HCPCS: 99213; G0463

== ENCOUNTER 2023-09-15 12:03 | Emergency (ER) | payer OTHER, SELFPAY ==
[2023-09-15 12:14] VITALS: BP 123/76; PULSE 95; RESP 16; TEMP 36.8; O2SAT 98
[2023-09-15 12:40] LABS: EDINFLUASCREEN Negative; EDINFLUBSCREEN Negative
[2023-09-15 12:41] LABS: EDSTREPNEGPOS1 Presumptive Negative
--- NOTE | 2023-09-15 12:59 | ED.GENADULT ---
HPI - General Adult General Chief complaint: Upper Respiratory Infection Stated complaint: throat pain/ spider bites /finger blisters Time Seen by Provider: 09/15/23 12:37 Source: patient and RN notes reviewed Mode of arrival: ambulatory Limitations: no limitations History of Present Illness HPI narrative: Patient presents today with a 3 day history of sore throat, sweats. She currently rates her sore throat 8/10 and has been taking naproxen without much relief. Pain increases with swallowing. Denies any additional symptoms to include congestion, rhinorrhea, fever She is also complaining of a wound to her left krishnan. States 5-6 days ago she picked an ingrown hair and reports that redness and a large scab has developed afterwards that is now draining pus. Denies history of MRSA. Related Data Allergies Allergy/AdvReac Type Severity Reaction Status Date / Time bee venom protein (honey bee) Allergy Mild Swelling Verified 09/15/23 12:16 corn Allergy Unknown Rash/THROAT Verified 09/15/23 12:16 SWELLING morphine AdvReac Other Verified 09/15/23 12:16 [email or web address] [From Ambien] AdvReac Hallucinati Verified 09/15/23 12:16 ng Review of Systems Review of Systems: CONSTITUTIONAL: Denies body aches, fever, chills, or sweats. EYES: Denies visual changes, redness, or discharge. ENT: Denies rhinorrhea, congestion, or otalgia.+ sore throat CARDIOVASCULAR: Denies chest pain, palpitations, or edema. RESPIRATORY: Denies cough or dyspnea. GASTROINTESTINAL: Denies abdominal pain, nausea, vomiting, or diarrhea. GENITOURINARY: Denies dysuria or hematuria. SKIN: Denies rash, itching. + wound to left lower leg MUSCULOSKELETAL: Denies back pain, joint pain, or myalgia. NEUROLOGIC: Denies headache, numbness, tingling, or weakness. PSYCH: Denies depression or anxiety. [facility] Past Medical History Medical History ADHD Anxiety and depression Depression History of blood transfusion IBS (irritable bowel syndrome) Kidney stones Ovarian cyst hemorrhage UTI (urinary tract infection) Surgical History Surgical History History of section History of right salpingo-oophorectomy History of tubal ligation Hx of hand surgery tendon repair left hand S/P laparoscopic hysterectomy Family History Family History Grandparent Cancer lung grandfather Social History Social History Smoking packs per day: 1 Smoking cigarettes per day: 20.0 Years smoked: 14 Smoking pack-years: 14.00 Smoking status: Current every day smoker Tobacco type: cigarettes Second hand tobacco smoke exposure: Yes Additional smoking assessment comments: 1/2ppd x 14 years Alcohol intake: former Alcohol use details: VERY RARE Substance use: current Substance use type: marijuana Other substance usage details: daily smoking Last use: 07/03/20 Living arrangements: with family Gender identity (if verbalized by the patient): Female Spiritual care concerns: No Comments At time of signature, I have reviewed and agree with nursing past medical, surgical, social and family history unless otherwise noted. Please see nursing chart for further information. There is no relevant family history pertinent to the presenting complaint Exam Narrative: GENERAL: Well-appearing, well-nourished, and in no acute distress. HEAD: Normocephalic, atraumatic. EYES: EOMI. No redness or drainage. Conjunctivae normal. ENT: Mucous membranes pink and moist. Nares clear. No rhinorrhea. TMs normal bilaterally. Throat erythematous. Tonsils erythematous with exudate. Left tonsil 2+, right tonsil 1+. No soft palate swelling. Uvula midline. NECK: Normal AROM. Supple. No lymphadenopathy. CHEST: No respir
== END 2023-09-15 13:05 | disposition home or self-care (01) ==
PROVIDERS: Emergency Provider Nurse Practitioner; PCP Emergency Medicine
DX: J02.9 Acute pharyngitis, unspecified (principal); L03.116 Cellulitis of left lower limb; Z20.822 Contact with and (suspected) exposure to COVID-19; F17.210 Nicotine dependence, cigarettes, uncomplicated
CPT/HCPCS: 87081; 87426; 87804; 87880; 99213; G0463

== ENCOUNTER 2023-10-09 13:58 | Emergency (ER) | payer OTHER, SELFPAY ==
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
[2023-10-09 14:39] VITALS: BP 124/80; PULSE 100; RESP 20; TEMP 37.3
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
== END 2023-10-09 17:00 | disposition home or self-care (01) ==
PROVIDERS: Emergency Provider Nurse Practitioner Family; PCP Emergency Medicine
DX: M79.674 Pain in right toe(s) (principal); F17.210 Nicotine dependence, cigarettes, uncomplicated
CPT/HCPCS: 73630; 99213; G0463

== ENCOUNTER 2023-10-16 15:23 | Emergency (ER) | payer OTHER, SELFPAY ==
[2023-10-16 15:31] VITALS: BP 98/70; PULSE 112; RESP 20; TEMP 37.2; O2SAT 96
--- NOTE | 2023-10-16 15:31 | ED.URI ---
HPI - URI/Sore Throat General Chief Complaint: Upper Respiratory Infection Stated Complaint: Left Side Throat Pain Time Seen by Provider: 10/16/23 15:31 Source: patient, RN notes reviewed and old records reviewed Mode of arrival: ambulatory Limitations: no limitations History of Present Illness HPI Narrative: 33-year-old female presents to the [facility] with complaints of left-sided throat pain that started a couple of weeks ago. Seen in treated on September 14 was prescribed antibiotic. States that she did finish her antibiotics but does not feel like she Denies fevers Denies any other treatment prior to arrival Related Data Home Medications Medication Instructions Recorded Confirmed lamotrigine 200 mg tablet 200 mg PO DAILY 10/16/23 10/16/23 paroxetine HCl 30 mg tablet 30 mg PO DAILY 10/16/23 10/16/23 Allergies Allergy/AdvReac Type Severity Reaction Status Date / Time bee venom protein (honey bee) Allergy Mild Swelling Verified 10/16/23 17:50 corn Allergy Unknown Rash/THROAT Verified 10/16/23 17:50 SWELLING morphine AdvReac Other Verified 10/16/23 17:50 zolpidem [From Ambien] AdvReac Hallucinati Verified 10/16/23 17:50 ng Review of Systems Review of Systems: All systems reviewed & are unremarkable except as noted in HPI and below Constitutional: Constitutional: Reports no additional constitutional complaints Eyes: Eyes: Reports no additional eye complaints ENT: Reports as per HPI and Reports sore throat Cardiovascular: Cardiovascular: Reports no additional cardiovascular complaints, Denies chest pain and Denies dyspnea Respiratory: Respiratory: Reports no additional respiratory complaints, Denies chest congestion, Denies cough and Denies dyspnea Gastrointestinal: Gastrointestinal: Reports no additional gastrointestinal complaints, Denies abdominal pain, Denies nausea and Denies vomiting Musculoskeletal: Musculoskeletal: Reports no additional musculoskeletal complaints Integumentary/Breasts: Skin/Breast: Reports system reviewed and no additional complaints, except as docu Neurologic: Reports system reviewed and no additional complaints, except as documented Psychiatric: Psychiatric: Reports no additional psychiatric complaints Allergic/Immunologic: Allergic/Immunologic: Reports no additional allergic/immunologic complaints PMFSH Past Medical History Medical History ADHD Anxiety and depression Depression History of blood transfusion IBS (irritable bowel syndrome) Kidney stones Ovarian cyst hemorrhage UTI (urinary tract infection) Surgical History Surgical History History of section History of right salpingo-oophorectomy History of tubal ligation Hx of hand surgery tendon repair left hand S/P laparoscopic hysterectomy Family History Family History Grandparent Cancer lung grandfather Social History Social History Smoking packs per day: 1 Smoking cigarettes per day: 20.0 Years smoked: 14 Smoking pack-years: 14.00 Smoking status: Current every day smoker Tobacco type: cigarettes Second hand tobacco smoke exposure: Yes Additional smoking assessment comments: 1/2ppd x 14 years Alcohol intake: former Alcohol use details: VERY RARE Substance use: current Substance use type: marijuana Other substance usage details: daily smoking Last use: 07/03/20 Living arrangements: with family Gender identity (if verbalized by the patient): Female Spiritual care concerns: No Comments At the time of my signature, I reviewed and agree with the nursing past medical, surgical, social, and family history. There is no relevant family history pertinent to the patient complaint. Exam Const: General: cooperative, healthy appe
[2023-10-16 15:52] LABS: EDSTREPNEGPOS1 Positive
== END 2023-10-16 16:11 | disposition home or self-care (01) ==
PROVIDERS: Emergency Provider Nurse Practitioner; PCP Emergency Medicine
DX: J02.0 Streptococcal pharyngitis (principal); F17.210 Nicotine dependence, cigarettes, uncomplicated; F41.9 Anxiety disorder, unspecified; F32.A Depression, unspecified
CPT/HCPCS: 87880; 99213; G0463

== ENCOUNTER 2023-10-16 17:45 | Emergency (ER) | payer OTHER, SELFPAY ==
--- NOTE | ~2023-10-16 | CT_ITS ---
EXAMINATION: CT soft tissue neck w con DATE: 10/16/2023 18:52 INDICATION: TECHNIQUE: Computed tomography (CT) of the neck was performed with 75 mL Omnipaque-350 intravenous co ntrast. The dose-length product was 507.18 mGy-cm. COMPARISON: None FINDINGS: [place] tonsillar swelling, mild on the right and moderate on the left. No tonsillar or peritonsilla r rim-enhancing fluid collection. The thyroid gland is unremarkable. Mild left submandibular gland enlargement. Symmetric bilateral parotid glands. Enlarged anterior cervical lymph nodes. The super ior mediastinum is unremarkable. The airway is unremarkable. Parapharyngeal and pre-glottic fat p lanes are preserved. Normal enhancing neck vessels. The orbits are unremarkable. Trace right mas toid fluid. The remaining aerated spaces are clear . Clear lung apices. unremarkable regional bones. IMPRESSION: Bilateral palatine tonsillar swelling, worse on the left. Mild left submandibular gland enlargement. Bilateral anterior cervical chain lymphadenopathy. No CT evidence of tonsillar or peritonsillar absce ss. Reviewed, dictated and finalized at location K. IMPRESSION: Bilateral palatine tonsillar swelling, worse on the left. Mild left submandibul ar gland enlargement. Bilateral anterior cervical chain lymphadenopathy. No CT evidence of tonsillar or peritonsillar abscess.
[2023-10-16 17:48] VITALS: BP 109/78; PULSE 100; RESP 17; TEMP 36.4; O2SAT 100
--- NOTE | 2023-10-16 17:51 | ED.GENADULT ---
HPI - General Adult General Chief complaint: Unspecified <GOPAL Mackenzie Last Filed: 10/16/23 17:56> Stated complaint: swelling to throat <GOPAL Mackenzie Last Filed: 10/16/23 17:56> Time Seen by Provider: 10/16/23 17:52 <GOPAL Mackenzie Last Filed: 10/16/23 17:56> Focused HPI: Patient is a 33 y/o female who presents to the ED with c/o sore throat. Patient reports having an intermittent sore throat with fevers over the past few weeks. Woke up this morning with a worsening sore throat. Went to and was rx'd with Strep throat. Rx'd clindamycin and prednisone, but referred to the ED to r/o COST ESTIMATOR due to her L tonsil being increasingly swollen. Patient reports pain with swallowing, denies difficulty swallowing or breathing. GENERAL: Well-appearing, well-nourished, and in no acute distress. HEAD: Normocephalic, atraumatic. ENT: Moderate unilateral swelling on L tonsil with mild protrusion of tonsillar bed. No exudate. No appreciable uvular deviation. MMs moist. CHEST: Clear to auscultation. ?No respiratory distress. No stridor. HEART: Regular rate and rhythm.? NEURO: ?Alert and oriented x3. Patient screened in triage and initial orders placed.? ?Additional care and disposition to be based upon?diagnostic testing and treatment. <GOPAL Mackenzie Last Filed: 10/16/23 17:56> Source: patient <GOPAL Mackenzie Last Filed: 10/16/23 17:56> Mode of arrival: ambulatory <GOPAL Mackenzie Last Filed: 10/16/23 17:56> Limitations: no limitations <GOPAL Mackenzie Last Filed: 10/16/23 17:56> History of Present Illness HPI narrative: Patient is a 33-year-old female sent from urgent care for possible peritonsillar abscess. The patient reports that she has pain in her throat feels like she is swallowing glass the patient states that she was diagnosed with strep and given a prescription for clindamycin and prednisone patient has not picked them up yet of patient was seen in triage by the advanced practice provider and a medical screening exam was performed prior to coming back into main ER <Vincent Mcdonough MD - Last Filed: 10/16/23 19:58> Related Data Home medications: Home Medications Medication Instructions Recorded Confirmed lamotrigine 200 mg tablet 200 mg PO DAILY 10/16/23 10/16/23 paroxetine HCl 30 mg tablet 30 mg PO DAILY 10/16/23 10/16/23 <Aruna Adams PA-C - Last Filed: 10/16/23 17:56> Allergies/adverse reactions: Allergies Allergy/AdvReac Type Severity Reaction Status Date / Time bee venom protein (honey bee) Allergy Mild Swelling Verified 10/16/23 17:50 corn Allergy Unknown Rash/THROAT Verified 10/16/23 17:50 SWELLING morphine AdvReac Other Verified 10/16/23 17:50 zolpidem [From Ambien] AdvReac Hallucinati Verified 10/16/23 17:50 ng <Aruna Adams PA-C - Last Filed: 10/16/23 17:56> Review of Systems Review of Systems: A 10 system review of systems was completed on the patient and is negative except for what is stated in the HPI. Nursing and ancillary documentation was reviewed. <Vincent Mcdonough MD - Last Filed: 10/16/23 19:58> [facility] Past Medical History Medical History: Medical History ADHD Anxiety and depression Depression History of blood transfusion IBS (irritable bowel syndrome) Kidney stones Ovarian cyst hemorrhage UTI (urinary tract infection) <Aruna Adams PA-C - Last Filed: 10/16/23 17:56> Surgical History Surgical History: Surgical History History of section History of right salpingo-oophorectomy History of tubal ligation Hx of hand surgery tendon repair left hand S/P laparoscopic hysterectomy <Aruna Adams PA-C - Last Filed: 10/16/23 17
[2023-10-16 18:31] LABS: Basophils Percent Auto 0.3 % (0.2-1.2); Eosinophils Absolute Auto 0.1 K/mm3 (0-0.3); Eosinophils Percent Auto 0.9 % (0-4.4); Hematocrit 38.7 % (37.0-47.0); Hemoglobin 12.8 g/dL (12.0-15.0); Immature Granulocyte Absolute 0.03 K/mm3 (0.00-0.031); Immature Granulocyte Percent A 0.3 % (0-0.5); Lymphocytes Absolute Auto 2.59 K/mm3 (0.9-3.2); Lymphocytes Percent Auto 26.4 % (18.3-44.2); Mean Corpuscular HGB Conc 33.1 g/dl (32-36); Mean Corpuscular Hemoglobin 29.4 pg (26-34); Monocytes Absolute Auto 0.6 K/mm3 (0.1-0.6); Neutrophils Absolute Auto 6.5 K/mm3 (1.3-6.7); Neutrophils Percent Auto 66.1 % (45.5-73.1); Platelet Count Result 238 k/mm3 (150-375); Red Blood Count 4.35 M/mm3 (4.2-5.4); Red Cell Distribution Width 12.1 % (11.5-14.5); White Blood Count 9.8 K/mm3 (4.5-10.0)
[2023-10-16 18:41] LABS: Anion Gap 11 mmol/L (4-12); Blood Urea Nitrogen 20 mg/dL (7-17); Calcium 9.4 mg/dL (8.4-10.2); Carbon Dioxide 27 mmol/L (22-30); Chloride 98 mmol/L (98-107); Estimated CRCL calculation 86 ml/min; Estimated Glomerular Filt Rate > 60; Glucose 120 mg/dL (65-110); Potassium 3.7 mmol/L (3.4-5.0); Sodium 136 mmol/L (137-145)
[2023-10-16 19:47] VITALS: RESP 17
[2023-10-16 19:49] VITALS: BP 118/81; PULSE 78; RESP 18; TEMP 37.1; O2SAT 99
[2023-10-16] MEDS: KETOROLAC 30 MG/ML VIAL (*BKC) IV PUSH (20:09)
[2023-10-16] MEDS: dexAMETHasone SOD PHOS INJ 10 MG/ML 1 ML VIAL IV PUSH (20:10)
[2023-10-16] MEDS: CLINDAMYCIN 600 MG/D5W 50 ML 600 MG/50 ML PIGGYBACK 100 MG IVPB (20:10)
[2023-10-16] MEDS: HYDROcodone/acetaminophen (*CRX) 5-325 MG TABLET 1 TAB PO (20:11)
[2023-10-16] MEDS: BELLADONNA ALK/PHENOB ELIX 10 ML, MAG HYDROX/ALUMINUM HYD/SIMETH 30 ML, LIDOCAINE HCL 2... PO (20:12)
[2023-10-16 20:50] VITALS: BP 108/57; PULSE 82; RESP 18; TEMP 37.2; O2SAT 98
[2023-10-17 12:12] LABS: Estimated CRCL calculation 86 ml/min; Estimated Glomerular Filt Rate > 60
== END 2023-10-16 20:53 | disposition home or self-care (01) ==
PROVIDERS: Physician Assistant; Emergency Provider Emergency Medicine; PCP Emergency Medicine
DX: J02.0 Streptococcal pharyngitis (principal); K58.9 Irritable bowel syndrome, unspecified; F90.9 Attention-deficit hyperactivity disorder, unspecified type; F41.9 Anxiety disorder, unspecified; F32.A Depression, unspecified; Z87.442 Personal history of urinary calculi; Z87.440 Personal history of urinary (tract) infections; Z90.721 Acquired absence of ovaries, unilateral; Z90.79 Acquired absence of other genital organ(s); Z90.710 Acquired absence of both cervix and uterus
CPT/HCPCS: 36415; 70491; 80048; 82565; 85025; 87880; 96365; 96375; 99284; A9270; J1100; J1885; Q9967

== ENCOUNTER 2023-10-17 12:54 | Emergency (ER) | payer OTHER, SELFPAY ==
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
[2023-10-17 13:01] VITALS: BP 143/94; PULSE 154; RESP 22; TEMP 36.7; O2SAT 98
[2023-10-17] MEDS: IBUPROFEN 600 MG TABLET PO (14:52)
[2023-10-17 18:57] VITALS: BP 126/82; PULSE 94; RESP 18; O2SAT 96
[2023-10-17] MEDS: KETOROLAC 30 MG/ML VIAL (*BKC) IV PUSH (19:30)
[2023-10-17] MEDS: ONDANSETRON INJ 4 MG/2 ML VIAL IV PUSH (19:30)
[2023-10-17] MEDS: CYCLOBENZAPRINE HCL 10 MG TABLET PO (19:31)
[2023-10-17] MEDS: SODIUM CHLORIDE 0.9% IV 1,000 ML 999 ML IV CONT (19:31)
[2023-10-17] MEDS: TETANUS,DIPHTHERIA,AC PERTUSSIS ADULT (0.5 ML) BOOSTRIX IM (19:31)
[2023-10-17 20:28] VITALS: BP 124/77; PULSE 89; RESP 18; TEMP 36.6; O2SAT 99
== END 2023-10-17 20:30 | disposition home or self-care (01) ==
PROVIDERS: Emergency Provider Emergency Medicine; PCP Emergency Medicine
DX: S00.531A Contusion of lip, initial encounter (principal); S00.12XA Contusion of left eyelid and periocular area, initial encounter; S50.11XA Contusion of right forearm, initial encounter; S00.81XA Abrasion of other part of head, initial encounter; S50.812A Abrasion of left forearm, initial encounter; Z23 Encounter for immunization; K58.9 Irritable bowel syndrome, unspecified; F41.9 Anxiety disorder, unspecified; F32.A Depression, unspecified; F90.9 Attention-deficit hyperactivity disorder, unspecified type; F17.210 Nicotine dependence, cigarettes, uncomplicated; Z87.442 Personal history of urinary calculi; Z87.440 Personal history of urinary (tract) infections; Z90.79 Acquired absence of other genital organ(s); Z90.721 Acquired absence of ovaries, unilateral; Z90.710 Acquired absence of both cervix and uterus; Z79.899 Other long term (current) drug therapy; Y04.2XXA Assault by strike against or bumped into by another person, initial encounter
CPT/HCPCS: 70450; 70486; 71046; 71100; 72125; 90471; 90715; 96361; 96374; 96375; 99284; A9270; J1885; J2405; J7030

== ENCOUNTER 2023-11-13 18:18 | Emergency (ER) | payer OTHER, SELFPAY ==
[2023-11-13 18:36] VITALS: BP 123/80; PULSE 103; RESP 21; O2SAT 99
[2023-11-13 18:48] LABS: Basophils Percent Auto 0.3 % (0.2-1.2); Eosinophils Absolute Auto 0.1 K/mm3 (0-0.3); Eosinophils Percent Auto 0.8 % (0-4.4); Hematocrit 39.1 % (37.0-47.0); Hemoglobin 13.1 g/dL (12.0-15.0); Immature Granulocyte Absolute 0.02 K/mm3 (0.00-0.031); Immature Granulocyte Percent A 0.3 % (0-0.5); Lymphocytes Absolute Auto 2.56 K/mm3 (0.9-3.2); Lymphocytes Percent Auto 34.9 % (18.3-44.2); Mean Corpuscular HGB Conc 33.5 g/dl (32-36); Mean Corpuscular Hemoglobin 29.6 pg (26-34); Mean Corpuscular Volume 88.5 fl (80-100); Mean Platelet Volume 8.9 fl (7.4-10.4); Monocytes Absolute Auto 0.5 K/mm3 (0.1-0.6); Monocytes Percent Auto 6.7 % (2.6-8.5); Neutrophils Absolute Auto 4.2 K/mm3 (1.3-6.7); Platelet Count Result 287 k/mm3 (150-375); Red Blood Count 4.42 M/mm3 (4.2-5.4); Red Cell Distribution Width 12.9 % (11.5-14.5); White Blood Count 7.3 K/mm3 (4.5-10.0)
[2023-11-13 19:08] LABS: Alanine Aminotransferase 19 U/L (6-35); Albumin Level 4.8 g/dL (3.5-5.1); Alkaline Phosphatase 69 U/L (38-126); Anion Gap 13 mmol/L (4-12); Aspartate Amino Transferase 30 U/L (14-36); Bilirubin,Total 0.3 mg/dL (0.2-1.3); Blood Urea Nitrogen 18 mg/dL (7-17); Calcium 9.6 mg/dL (8.4-10.2); Carbon Dioxide 25 mmol/L (22-30); Chloride 100 mmol/L (98-107); Estimated CRCL calculation 88 ml/min; Estimated Glomerular Filt Rate > 60; Glucose 101 mg/dL (65-110); Potassium 3.9 mmol/L (3.4-5.0); Sodium 138 mmol/L (137-145)
== END 2023-11-13 21:58 | disposition left against medical advice (07) ==
LOC: ANHED 21:25
PROVIDERS: Emergency Provider Student in an Organized Health Care Education/Training Program; PCP Emergency Medicine
DX: R10.9 Unspecified abdominal pain (principal)
CPT/HCPCS: 36415; 80053; 85025; 99199

== ENCOUNTER 2024-10-23 12:15 | Emergency (ER) | payer OTHER, SELFPAY ==
--- OUTSIDE RECORDS SUMMARY | 2023-12-04 07:59 | XMS_ITS | Continuity of Care Document ---
Author Organization [email or web address] [place] Address [address] [place] [address] [place] [id number] Phone Care Team Providers Care Automatic Pattern Edger Name Role Phone Rodríguez Hough Unavailable Unavailable Procedures Procedure Date Therapeutic Activities Neuromuscular Re-Ed Therapeutic Exercise Manual Therapy PT Evaluation Moderate Complexity Neuromuscular Re-Ed Therapeutic Exercise Manual Therapy Progress Note Therapeutic Activities Neuromuscular Re-Ed Therapeutic Exercise Manual Therapy Hot or Cold Pack Therapeutic Activities Neuromuscular Re-Ed Therapeutic Exercise Manual Therapy Hot or Cold Pack Therapeutic Activities Neuromuscular Re-Ed Therapeutic Exercise Hot or Cold Pack Therapeutic Activities Neuromuscular Re-Ed Therapeutic Exercise Manual Therapy Therapeutic Activities Neuromuscular Re-Ed Therapeutic Exercise Manual Therapy PT Evaluation Moderate Complexity Neuromuscular Re-Ed Therapeutic Exercise Manual Therapy Advance Directives Directive Yes / No Effective Date File Name No Information Encounters Encounter Description Practice Location Reason(s) For Visit Diagnoses Date Provider Providers Copied on Encounter [facility] [address] [address], [place], [place], [id number], tel:[phone] [place] No Information 4 Muehl Rodríguez. [address] [facility], [facility] [address] [address], . tel:[phone] [facility] [address] [place] [address], [place], [place], [id number], tel:[phone] [place] No Information 4 Melvin Austin. . Referring Provider: Holly Jesus, [address] [place], [place], [facility]. tel:[phone] [facility] [address] [place] [address], [place], [place], [id number], tel:[phone] [place] No Information 4 Melvin Avila. . Referring Provider: Holly Jesus, [address] [place], [place], [facility]. tel:[phone] [address], [place], [place], [id number], tel:[phone] [place] No Information 4 Muehl Rodríguez. [address] [place] [address], [address], [facility], . tel:[phone] Referring Provider: Gordy Larson, [address] [place] [address], [facility]. tel:[phone] [facility] [address] [place] [address], [place], [place], [id number], tel:[phone] [place] No Information 4 Muehl Rodríguez. [address] [facility], [facility] [address], [place], [facility], . tel:[phone] Referring Provider: Gordy Larson, [address] [place] [address], [facility]. tel:[phone], [id number], tel:[phone] [place] No Information 4 Arina Arreguin. [address] [place] [address], [address] tel:[phone] Referring Provider: Gordy Larson, [address] [place] [address], [facility]. tel:[phone], [id number], tel:[phone] [place] No Information 4 Oliver Ding . Referring Provider: Gordy Larson, [address] [place] [address], [facility]. tel:[phone], [id number], tel:[phone] [place] No Information 4 Akhil Rosado . Referring Provider: Gordy Larson, [address] [place] [address], [facility]. tel:[phone], [id number], tel:[phone] [place] No Information 4 Arina Arreguin. [address] [place] [address], [address] [address], . [phone] Referring Provider: Gordy Larson, [address] [place] [address], [facility]. tel:[phone] Family History Family Member Type Diagnosis Age At Onset No Information Payers Payer name Insurance type Covered democrat ID Danyel hidalgo([id number] Social History Type Description Quantity Date Captured Comments Sex Female Smoking Status No Information Chief Complaint And Reason For Visit No Information Reason For Referral Reason For Referral No Information History Of Present Illness Encounter Date Complaint History Of Prese nt Illness No Information Functional Status Date Functional Assessmen t No Information Instructions Date Instruction Additional Infor mation No Information Assessments Type Assessment Date No Information Patient Care Teams Name Effective Dates (start - stop) Status Members No Information
--- NOTE | ~2024-10-23 | CT_ITS ---
EXAMINATION: CT abdomen pelvis wo chacho, 10/23/2024 13:50 CDT HISTORY: flank pain COMPARISON: No comparisons available. TECHNIQUE: CT scan of the abdomen and pelvis was performed without IV contrast. One or more of the following dose reduction techniques were used: automated exposure control, adjustment of the mA and/or kV according to patient size, use of iterative reconstruction technique. Unless otherwise stated, incidental findings do not require dedicated follow up imaging FINDINGS: CT abdomen: LUNG BASES: The lung bases are clear. The visualized portions of the heart and pericardium are unremarkable. LIVER: Unremarkable, liver contours intact, no lesions. SPLEEN: Unremarkable, no splenomegaly. KIDNEYS: Right Kidney: Unremarkable. No calculi. No hydronephrosis. Left Kidney: Unremarkable. No calculi. No hydronephrosis ADRENAL GLANDS: Unremarkable. PANCREAS: Unremarkable. GALLBLADDER/BILIARY: Postcholecystectomy. STOMACH AND ESOPHAGUS: Visualized stomach and esophagus within normal limits. BOWEL/MESENTERY: Mesentery normal. Small bowel normal. Appendix normal. No colitis or diverticulitis. ADENOPATHY/RETROPERITONEUM: No lymphadenopathy. AORTA/VASCULATURE: Normal caliber aorta. FREE FLUID OR FREE AIR: None. CT pelvis: SOLID ORGANS/REPRODUCTIVE: Posthysterectomy. No adnexal mass. BLADDER: Within normal limits. OSSEOUS STRUCTURES: No acute osseous abnormality.No suspicious lesions. OVERLYING SOFT TISSUES: Unremarkable. IMPRESSION: 1. No etiology identified to explain the patient's symptoms. Follow-up suggested if symptoms persist. Reviewed, dictated and finalized at location A. IMPRESSION: 1. No etiology identified to explain the patient's symptoms. Follow-up suggeste d if symptoms persist.
--- OUTSIDE RECORDS SUMMARY | 2024-10-23 12:17 | XMS_ITS | Clinical Summary ---
Author Organization [facility] Address [address] [place] [address] Phone Care Team Providers Care Network Project Manager Name Role Phone Provider, Unknown Primary Care Provider Unavaila ble Levi Moore MD Unavailable [phone] Allergies Active Allergy Reactions Criticality Noted Date Comments Bee Venom Itching Low 10/01/2011 Medications Eliquis DVT/PE Starter Pack 5 MG Tablet Therapy Pack 09/29/19 22 Active ondansetron (ZOFRAN-ODT) 4 MG TABLET DISPERSIBLE DISSOLVE 1 TABLET ON THE TONGUE EVERY 8 HOURS 09/23/19 22 Active HYDROcodone-acetam inophen (NORCO) 5-325 MG Tablet TAKE 1 TABLET BY MOUTH EVERY 6 HOURS 10/20/19 22 Active pantoprazole (PROTONIX) 40 MG Tablet Delayed Response 09/30/19 22 Active apixaban (Eliquis) 5 MG TabletIndications: Venous Thromboembolism Take 1 Tablet by mouth 2 times daily. 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 Gender Identity Not on file Sexual Orientation Not on file Last Filed Vital Signs Vital Sign Reading Time Taken Comments Blood Pressure 124/70 10/22/2021 2:13 PM CDT Pulse 113 10/22/2021 2:13 PM CDT Temperature 36.2 C (97.1 F) 10/22/2021 2:13 PM CDT Respiratory Rate 18 10/22/2021 2:13 PM CDT Oxygen Saturation 98% 10/22/2021 2:13 PM CDT Inhaled Oxygen Concentration - - Weight 68.3 kg (150 lb 9.6 oz) 10/22/2021 2:13 P M CDT Height 162.6 cm (5' 4) 10/22/2021 2:13 PM CDT Body Mass Index 25.85 10/22/2021 2:13 PM CDT Plan of Treatment Health Maintenance Due Date Last Done Comments Hepatitis B Immunization (1 of 3 - 19+ 3-dose series) 2008 Human Papillomavirus (HPV) Immunization (1 - 3-dose SCDM series) 2016 SARS-COV-2 Immunization ( - 2023- season) 2023 Influenza Immunization (#1) 2024 Respiratory Syncytial Virus (RSV) Immunization (Adult) (1 - 1-dose 75+ series) 2064 Pneumococcal Immunization Combined Aged Out 10/13/2011 No longer eligible based on patient's age to complete this topic DTaP/Tdap/Td Immunization Discontinued 2015, 10/13/2011 TdaP Immunization Completed 08/24/2015, 10/13/2011 Hepatitis C Virus (HCV) Screening Completed 09/27/2021 Meningococcal Immunization (ACWY) Aged Out No longer eligible based on patient's age to complete this topic Rotavirus Immunization Aged Out No lo nger eligible based on patient's age to complete this topic Insurance [place]ICA[place] Care Teams Network Project Manager Relationship Specialty Start Date End Date Provider, Unknown UNKNOWN PCP - General 07/05/16 Levi Moore MD [address] [place] [phone] Consulting Physician Oncology 10/08/21
--- OUTSIDE RECORDS SUMMARY | 2024-10-23 12:17 | XMS_ITS | Clinical Summary ---
Author Organization [facility] Address [address] [place] [address] Care Team Providers Care Mica Sizer Name Role Phone Truman Welch MD Primary Care Provider [phone] Source Comments [facility],non-owned Affiliates and Associated Physician Practices is amultiple site organization consisting of ambulatory clinics and hospital sitesin [place], [place], [place] and [place]. This disclosure is being madepursuant to the Care Everywhere program and may not contain all information available regarding this patient. Last updated 17.[facility] Allergies Active Allergy Reactions Criticality Noted Date Comments Zolpidem Other Medium 08/11/2023 Personality change Bee Anaphylaxis,Itching High 10/01/2011 Bee Venom Anaphylaxis,Itching High 10/01/2011 Morphine Psychiatric Medium 04/29/2022 Medications * Be aware that medications may not be up to date on this document. Alwaysverify current medications with the patient. albuterol HFA (PROAIR HFA) 108 (90 BASE) MCG/ACT inhaler Inhale 2 Puffs by mouth every 6 hours as needed 1 Inhaler 2 7 Active PARoxetine (Paxil) 30 MG tablet Take 1 (one) tablet by mouth once daily Active acetaminophen (Tylenol) 325 MG tablet Take 2 (two) tablets by mouth every 6 hours as needed for Fever or Pain Maximum allowable Acetaminophen amount = 4 Grams (4000 mg) / 24 hours. 4 Active ibuprofen (Motrin) 800 MG tablet Take 1 (one) tablet by mouth every 6 hours as needed for Pain 4 Active cyclobenzaprin e (Flexeril) 10 MG tablet Take 1 (one) tablet by mouth 3 times daily as needed for Muscle Spasms Active lamoTRIgine XR 24hr (LaMICtal XR) 200 MG tabletIndicati ons:Seizures (HCC) Take 1 (one) tablet by mouth 2 times daily 180 tablet 3 5 Active Active Problems Patient Care Coordination No te Formatting of this note migh t be different from the original. Set pt up for PT at [facility] Problem Noted Date Diagnosed Date Conversion disorder 05/04/2024 Psychogenic nonepileptic seizure 05/04/2024 Seizure-like activity 05/04/2024 Sore throat 12/11/2023 Other form of dyspnea 12/11/2023 Post-tonsillectomy pain 12/11/2023 Anxiety states 12/11/2023 Ganglion cyst of dorsum of right wrist 4 Hypercalcemia 03/25/2023 05/06/2023 Renal stone 03/25/2023 05/06/2023 Severe protein-calorie malnutrition 12/29/2022 Acute pancreatitis after end oscopic retrograde cholangiopancreatography (ERCP) 12/26/2022 Portal vein thrombosis 12/26/2022 Normocytic anemia 12/26/2022 Hyperthyroidism 12/26/2022 Mood disorder 12/26/2022 Hypokalemia 12/26/2022 Hypoalbuminemia 12/26/2022 Abdominal pain, right upper quadrant 12/25/2022 Abdominal pain, generalized 12/25/2022 Pancreatitis 12/12/2022 02/04/2023 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 02/04/2023 Overview (02/04/2023): Added automatically from request for surgery [id number] DVT (deep venous thrombosis) 07/24/2022 Overview (07/24/2022): ovarian vein 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 therapy 3 07/24/2022 Dyspepsia 07/02/2022 07/24/2022 Overview (07/24/2022): Added automatically from request for surgery [id number] Early satiety 07/02/2022 07/24/2022 Overview (07/24/2022): Added automatically from request for surgery [id number] Esophageal dysphagia 07/02/2022 07/24/2022 Overview (07/24/2022): Added automatically from request for surgery [id number] Generalized abdominal pain 07/02/202207/24 Overview (07/24/2022): Added automatically from request for surgery [id number] Irregular bowel habits 07/02/2022 Overview (07/24/2022): Added automatically from request for surgery [id number] Nausea and vomiting 07/02/2022 07/24/2022 Overview (07/24/2022): Added automatically from request for surgery [id number] Elevated pulse rate 06/26/2022 07/24/2022 Light headedness 06/26/2022 07/24/2022 Palpitations 06/26/2022 07/24/2022 Shortness of breath 06/26/2022 07/24/2022 PCOS (polycystic ovarian syndrome) 05/02/2022 07/24/2022 Right wrist pain 03/19/2021 07/24/2022 Low-risk human papillomaviru s (HPV) DNA detected in cervical specimen 06/16/2017 11/26/2022 Overview (11/26/2022): Cervical low risk HPV DNA test positive;Recorded Elsewhere: No Location: [facility] Source: EHR Chronic: N Practice ID: [id number] Billable Time: 03:00:00 PM Cervical low risk HPV DNA test positive;Recorded Elsewhere: No Location: [facility] Source: EHR Chronic: N Practice ID: [id number] Billable Time: 03:00:00 PM Bleeding 12/02/2016 11/26/2022 Overview (11/26/2022): Abnormal uterine bleeding;Recorded Elsewhere: No Location: [facility] Source: EHR Chronic: N Practice ID: [id number] Billable Time: 02:15:00 PM Single liveborn, born in [facility], delivered by delivery 08/15/2016 11/26/2022 Overview (11/26/2022): Single liveborn infant delivered by c section;Recorded Elsewhere: No Location: [facility] Source: EHR Chronic: N Practice ID: [id number] Billable Time: 01:45:00 PM Nicotine dependence 08/08/2016 LGSIL on Pap smear of cervix 08/08/2016 Premature labor 07/21/2016 11/26/2022 Overview (11/26/2022): labor without delivery, third trimester;Practice ID: [id number] False labor before 37 completed weeks of gestati on 07/20/2016 11/26/2022 Overview (11/26/2022): False labor before 37 completed weeks of gest, unsp tri;Practice ID: [id number] Cervical cerclage suture present 07/18/2016 07/24/2022 Leukocytosis 07/04/2016 11/26/2022 Overview (11/26/2022): Elevated white blood cell count, unspecified;Recorded Elsewhere: No Location: [facility] Source: EHR Chronic: N Practice ID: [id number] Billable Time: 02:15:00 PM Pelvic and perineal pain 06/24/2016 023 Overview (11/26/2022): Pelvic pain;Recorded Elsewhere: No Location: [facility] Source: EHR Chronic: N Practice ID: [id number] Billable Time: 03:15:00 PM Cardiac arrhythmia 06/05/2016 07/24/2022 Complication of , childbirth and puerpe rium 06/05/2016 05/06/2023 Overview (05/06/2023): Oth diseases and conditions compl preg/chldbrth;Practice ID: [id number] Papanicolaou smear of anus w ith low grade squamous intraepithelial lesion (LGSIL) 04/04/2016 07/24/2022 Normal in multigravida 04/03/2016 11/26/2022 Overview (11/26/2022): Encounter for supervision of other normal , first trimester;Recorded Elsewhere: No Location: [facility] Source: EHR Chronic: N Practice ID: [id number] Billable Time: 02:00:00 PM Amenorrhea 03/27/2016 11/26/2022 Overview (11/26/2022): Amenorrhea;Recorded Elsewhere: No Location: [facility] Source: EHR Chronic: N Practice ID: [id number] Billable Time: 03:30:00 PM H/O delivery, currently 015 Previous delivery, antepartum condition or complication 02/10/2015 Congenital malformation 01/14/2013 11/27/19 Overview (11/26/2022): screening for malformation using ultrasonics;Recorded Elsewhere: No Location: [facility] Source: EHR Chronic: N Practice ID: [id number] Billable Time: 02:45:00 PM Uterine size-date discrepancy 12/17/2012 Overview (11/26/2022): UTERINE SIZE ERI-ANTEPAR;Recorded Elsewhere: No Location: [facility] Source: EHR Chronic: N Practice ID: [id number] Billable Time: 01:30:00 PM test negative 09/17/2012 11/27/19 Overview (11/26/2022): examination or test, negative result;Recorded Elsewhere: No Location: [facility] Source: EHR Chronic: N Practice ID: [id number] Billable Time: 10:00:00 AM History of premature rupture of membranes in previous , currently in second trimester 10/01/2011 Overview (10/01/2011): 09/12/2011 at 1915 History of self mutilation 10/01/2011 Overview (10/01/2011): Pt admits to h/o cutting ankles in highschool. Denies cutting now. Denies SI/HI Premature rupture of membranes with pr oblem 09/12/2011 11/26/2022 Overview (11/26/2022): Premature rupture of membranes, antepartum;Practice ID: [id number] Primigravida 08/22/2011 11/26/2022 Overview (11/26/2022): Supervision of normal first ;Recorded Elsewhere: No Location: [facility] Source: EHR Chronic: N Practice ID: [id number] Billable Time: 02:30:00 PM History of section, low transverse Resolved Problems Problem Noted Date Diagnosed Date Resolved Date Seizures 02/05/2024 05/04/2024 Seizure disorder 12/26/2022 05/04/2024 28 weeks gestation of 07/21/2016 3 11/26/2022 Overview (11/26/2022): 28 weeks gestation of ;Practice ID: [id number] 18 weeks gestation of 05/10/2016 3 11/26/2022 Overview (11/26/2022): 18 weeks gestation of ;Recorded Elsewhere: No Location: [facility] Source: EHR Chronic: N Practice ID: [id number] Billable Time: 03:30:00 PM IUGR, 07/06/2015 07/24/2016 Small for gestational age 0406/15/2015 Tobacco use in 03/27/2015 Encounter for (NT) nuchal translucency scan 02/21/2015 07/24/2016 Acute upper respiratory infection 01/26/2013 023 12/10/2022 Overview (11/26/2022): Upper Respiratory Infection, Acute;Recorded Elsewhere: No Location: [facility] Source: EHR Chronic: N Practice ID: [id number] Billable Time: 01:00:00 PM Supervision of high-risk 10/01/2011 07/24/2016 Overview (10/02/2011): Datinw undoc US A+/I/-/-, ?? (doc in transfer notes A+/I/-/-, NR) Urine Cx: neg 09/12/2011 UDS: positive THC GBS: neg 09/12/2011 Normal GTT IUGR (intrauterine growth re striction) affecting care of mother 07/24/2016 Breech delivery 07/24/2016 Postoperative state 07/25/19 17 Anemia during , del ivered, current hospitalization 07/24/2016 Encounters Date Type Department Care Team Description 07/29/2024 Travel from Last 3 Months Immunizations Immunization Administration Dates Next Due PNEUMOCOCCAL PPSV23 10/13/2011 TDAP (7yrs+) 08/24/2015,10/13/2011 Family History Medical History Relation Name Comments Cerebral Palsy Brother ? etiology, b orn at term per report Cancer Maternal Grandfather lung Twins Maternal Grandmother Cancer - Breast Mother Labor Mother 21 week delive ry after prior term deliveries Relation Name Status Comments Brother Maternal Grandfather Maternal Grandmother Mother Social History Tobacco Use Types Packs/Day Years Used Date Smoking Tobacco: Former Cigarettes 1 20 2 - 2022 Smokeless Tobacco: Current Tobacco Cessation:Ready to Q uit: Not Asked; Counseling Given: Not Answered Alcohol Use Standard Drinks/Week Comments No 0 (1 standard drink = 0.6 oz pur e alcohol) socially not AUDIT-C Answer Date Recorded Q1: How often do you have a drink containing alcohol? Never 02/09/2024 Q2: How many drinks containi ng alcohol do you have on a typical day when you are drinking? Patient does not drink Q3: How often do you have si x or more drinks on one occasion? 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 Gender Identity Not on file Sexual Orientation Not on file Last Filed Vital Signs Vital Sign Reading Time Taken Comments Blood Pressure 128/85 05/04/2024 2:55 PM CDT Pulse 121 05/04/2024 2:55 PM CDT Temperature 36.4 C (97.5 F) 02/10/2024 12:12 AM INDUSTRIAL MACHINE OPERATOR Respiratory Rate 18 02/10/2024 12:12 AM INDUSTRIAL MACHINE OPERATOR Oxygen Saturation 98% 05/04/2024 2:55 PM CDT Inhaled Oxygen Concentration - - Weight 90.9 kg (200 lb 8 oz) 05/04/2024 2:55 PM CDT Height 162.6 cm (5' 4) 05/04/2024 2:55 PM CDT Body Mass Index 34.42 05/04/2024 2:55 PM CDT Plan of Treatment Upcoming Encounters Date Type Department Care Team (Late st Contact Info) Description 01/26/2025 2:00 PM INDUSTRIAL MACHINE OPERATOR Office Visit [facility] - Neurology [address] [facility], [facility] [place] [phone] Юлия Pichardo, MEMBER CERTIFICATION MANAGER-CHECK PROCESSOR [address] [place] [phone] Health Maintenance Due Date Last Done Comments HIV SCREENING 2004 HEPATITIS B VACCINE (1 of 3 - 19+ 3-dose series) 2008 PNEUMOCOCCAL VACCINE (2 of 2 - PCV) 10/12/2012 10/13/2011 HPV VACCINE (1 - 3-dose SCDM series) 2016 COVID-19 VACCINE (1 - 2023-2 5 season) 2023 DEPRESSION SCREENING 02/25/2024 02/27/2023 INFLUENZA VACCINE (#1) 2024 DTAP/TDAP/TD VACCINES (3 - T d or Tdap) 08/23/2025 08/24/2015, 10/13/2011 ZOSTER VACCINE (1 of 2) 07/26/2039 HEPATITIS C SCREENING Completed 09/27/2021 HIB VACCINE Aged Out No longer eligi ble based on patient's age to complete this topic MENINGOCOCCAL (Group B) VACCINE SHARED DECISION-MAKING Aged Out No longer eligible based on patient's age to complete this topic MENINGOCOCCAL GROUPS A/C/Y/W VACCINE Aged Out No longer eligible b ased on patient's age to complete this topic Insurance [facility] Advance Directives * Full Code (Latest Code Status on File) Date Activated Date Inactivated Comments 02/09/2024 11:58 AM 02/11/2024 7:53 PM * Full Code Date Activated Date Inactivated Comments 12/11/2023 9:10 PM 12/13/2023 12:07 PM * Full Code Date Activated Date Inactivated Comments 08/11/2023 12:15 PM 08/12/2023 1:41 PM * Full Code Date Activated Date Inactivated Comments 12/25/2022 3:02 AM 12/29/2022 6:12 PM * Full Code Date Activated Date Inactivated Comments 08/08/2016 2:59 PM 08/12/2016 4:42 PM Care Teams Mica Sizer Relationship Specialty Start Date End Date Truman Welch MD [address] [place] [id number] PCP - General 06/25/22
--- OUTSIDE RECORDS SUMMARY | 2024-10-23 12:17 | XMS_ITS | Clinical Summary ---
Author Organization [facility] Address [facility] [place] [address] Care Team Providers Care Cut In Worker Name Role Phone Truman Welch MD Primary Care Provider [phone] Allergies Active Allergy Reactions Criticality Noted Date Comments Zolpidem Mental status changes Low 06/23/2023 Carney Containing Products Anaphylaxis High 03/24/2023 Canned corn...I'm allergic to a preservative in it Morphine Hallucinations Medium 04/29/2022 Psychosis, alternative personality type of thing Venom-Honey Bee Itching Low 10/01/2011 Medications cyclobenzaprine (FLEXERIL) 10 mg tablet 06/01/2023 Active dicyclomine (BENTYL) 20 mg tablet 03/29/2023 Active lamoTRIgine (LaMICtal) 200 mg tablet Take 1 tablet (200 mg total) by mouth 2 (two) times a day 05/06/2023 Active PARoxetine (PAXIL) 30 mg tablet Take 1 tablet (30 mg total) by mouth every morning 06/07/2023 Active traMADoL (ULTRAM) 50 mg tablet Take 1 tablet (50 mg total) by mouth every 6 (six) hours as needed for pain 15 tablet 03/02/2024 Active Active Problems Problem Noted Date Diagnosed Date Ganglion cyst of dorsum of right wrist 4 Ganglion of right wrist 12/10/2023 Normocytic anemia 12/26/2022 Seizure disorder 12/26/2022 DVT (deep venous thrombosis) 07/24/2022 Overview (04/15/2023): ovarian vein ovarian vein Dyspepsia 07/02/2022 Overview (04/15/2023): Added automatically from request for surgery [id number] Early satiety 07/02/2022 Overview (04/15/2023): Added automatically from request for surgery [id number] Esophageal dysphagia 07/02/2022 Overview (04/15/2023): Added automatically from request for surgery [id number] Generalized abdominal pain 07/02/2022 Overview (04/15/2023): Added automatically from request for surgery [id number] Irregular bowel habits 07/02/2022 Overview (04/15/2023): Added automatically from request for surgery [id number] Nausea and vomiting 07/02/2022 Overview (04/15/2023): Added automatically from request for surgery [id number] Elevated pulse rate 06/26/2022 Light headedness 06/26/2022 Palpitations 06/26/2022 Shortness of breath 06/26/2022 PCOS (polycystic ovarian syndrome) 05/02/2022 Right wrist pain 03/19/2021 Cervical low risk human josselyn llomavirus (HPV) DNA test positive 06/16/2017 Overview (04/15/2023): Cervical low risk HPV DNA test positive;Recorded Elsewhere: No Location: [facility] Source: EHR Chronic: N Practice ID: 0001 Billable Time: 03:00:00 PM Bleeding 12/02/2016 Overview (04/15/2023): Abnormal uterine bleeding;Recorded Elsewhere: No Location: [facility] Source: EHR Chronic: N Practice ID: 0001 Billable Time: 02:15:00 PM LGSIL on Pap smear of cervix 08/08/2016 Nicotine dependence 08/08/2016 High risk due to history of la bor 08/08/2016 Overview (04/15/2023): Suprvsn of preg w history of pre-term labor, third trimester;Practice ID: 0001 Premature labor 07/21/2016 Overview (04/15/2023): labor without delivery, third trimester;Practice ID: 0001 False labor before 37 completed weeks of gestati on 07/20/2016 Overview (04/15/2023): False labor before 37 completed weeks of gest, unsp tri;Practice ID: 0001 Cervical cerclage suture present 07/18/2016 Overview (04/15/2023): Maternal care for cervical incompetence, second trimester;Practice ID: 0001 Leukocytosis 07/04/2016 Overview (04/15/2023): Elevated white blood cell count, unspecified;Recorded Elsewhere: No Location: [facility] Source: EHR Chronic: N Practice ID: 0001 Billable Time: 02:15:00 PM Pelvic and perineal pain 06/24/2016 Overview (04/15/2023): Pelvic pain;Recorded Elsewhere: No Location: [facility] Source: EHR Chronic: N Practice ID: 0001 Billable Time: 03:15:00 PM Cardiac arrhythmia 06/05/2016 Overview (04/15/2023): Premature contractions;Recorded Elsewhere: No Location: [facility] Source: EHR Chronic: N Practice ID: 0001 Billable Time: 02:30:00 PM Papanicolaou smear of anus w ith low grade squamous intraepithelial lesion (LGSIL) 04/03/2016 Overview (04/15/2023): Low grade intrepith lesion cyto smr anus (LGSIL);Recorded Elsewhere: No Location: [facility] Source: EHR Chronic: N Practice ID: 0001 Billable Time: 02:00:00 PM Amenorrhea 03/27/2016 Overview (04/15/2023): Amenorrhea;Recorded Elsewhere: No Location: [facility] Source: EHR Chronic: N Practice ID: 0001 Billable Time: 03:30:00 PM H/O delivery, currently 015 Previous delivery, antepartum condition or complication 02/10/2015 Acute upper respiratory infection 01/26/2013 Overview (04/15/2023): Upper Respiratory Infection, Acute;Recorded Elsewhere: No Location: [facility] Source: EHR Chronic: N Practice ID: 0001 Billable Time: 01:00:00 PM Congenital malformation 01/14/2013 Overview (04/15/2023): screening for malformation using ultrasonics;Recorded Elsewhere: No Location: [facility] Source: EHR Chronic: N Practice ID: 0001 Billable Time: 02:45:00 PM Uterine size-date discrepancy 12/17/2012 Overview (04/15/2023): UTERINE SIZE ERI-ANTEPAR;Recorded Elsewhere: No Location: [facility] Source: EHR Chronic: N Practice ID: 0001 Billable Time: 01:30:00 PM History of premature rupture of membranes in previous , currently in second trimester 10/01/2011 Overview (03/19/2021): 09/12/2011 at 1915 Premature rupture of membranes with pr oblem 09/12/2011 Overview (04/15/2023): Premature rupture of membranes, antepartum;Practice ID: 0001 Surgical History Surgery Date Site/Laterality Comments SECTION 10/12/11, 07/28/13, 08/23/15, 08/08/16 HYSTERECTOMY 11/26/2020 CHOLECYSTECTOMY 11/29/2022 TONSILLECTOMY 11/25/2023 - 12/25/2023 OOPHORECTOMY ERCP W/ PLASTIC STENT PLACEMENT Sphincter of Oddi stent placed WRIST MASS EXCISION 03/02/2024 Right Medical History Medical History Date Comments ADHD (attention deficit hype ractivity disorder) Deep vein thrombosis (HCC) in m y right ovarian vein after hysterectomy Kidney stone Migraines Seizure disorder (HCC) 12/26/2022 last seiz ure around 02/12/24, i recently had a seizure study Cardiac arrhythmia 06/05/2016 Premature con tractions;Recorded Elsewhere: No Location: [facility] Source: EHR Chronic: N Practice ID: 0001 Billable Time: 02:30:00 PM Depression Bipolar disorder Anxiety Tachycardia HR of 120s is n ormal for me 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 AUDIT-C Answer Date Recorded Q1: How often do you have a drink containing alcohol? Never 03/02/2024 Q2: How many drinks containi ng alcohol do you have on a typical day when you are drinking? Patient does not drink Q3: How often do you have si x or more drinks on one occasion? Never 03/02/2024 Personal Safety Answer Date Recorded Have you ever been in or are you currently in a harmful physical or emotional relationship or is someone making you feel afraid or unsafe? Denies 03/02/2024 Comments No Sex and Gender Information Value Date Recorded Sex Assigned at Not on file Legal Sex Female 7:50 PM FINAL FINISHER Gender Identity Female 07/07/2021 12:17 PM CDT Sexual Orientation Not on file Obstetrics History Last Filed Vital Signs Vital Sign Reading Time Taken Comments Blood Pressure 98/85 03/02/2024 3:00 PM FINAL FINISHER Pulse 80 03/02/2024 3:00 PM FINAL FINISHER Temperature 36.7 C (98 F) 03/02/2024 1:35 PM FINAL FINISHER Respiratory Rate 16 03/02/2024 3:00 PM FINAL FINISHER Oxygen Saturation 97% 03/02/2024 3:00 PM FINAL FINISHER Inhaled Oxygen Concentration - - Weight 87.8 kg (193 lb 8 oz) 03/02/2024 10:21 AM FINAL FINISHER Height 162.6 cm (5' 4) 03/02/2024 10:21 AM FINAL FINISHER Body Mass Index 33.21 03/02/2024 10:21 AM FINAL FINISHER Plan of Treatment Health Maintenance Due Date Last Done Comments Depression Screening 1989 Hepatitis C Screening 1989 Varicella Vaccines (1 of 2 - 13+ 2-dose series) 2002 Hepatitis B Screening 07/26/2007 Regular Well Visit/Exam 18-64 07/26/2007 HPV Vaccines (1 - 3-dose SCD M series) 2016 Influenza Vaccine (#1) 2024 DTaP/Tdap/Td Vaccine (4 - Td or Tdap) 10/16/2033 10/17/2023, 08/24/2015, 10/13/2011 Pneumococcal vaccine <65 Aged Out 10/13/2011 No longer eligible based on patient's age to complete this topic Insurance [facility] Care Teams Cut In Worker Relationship Specialty Start Date End Date Truman Welch MD PCP - General Emergency Medicine 08/08/22
[2024-10-23 12:30] VITALS: BP 136/81; PULSE 100; RESP 16; TEMP 36.8; O2SAT 100
--- OUTSIDE RECORDS SUMMARY | 2024-10-23 12:48 | XMS_ITS | Clinical Summary ---
Author Organization [facility] Address [address] [place] [id number] Phone Care Team Providers Care Laborer Gold Leaf Name Role Phone Unavailable Primary Care Provider Unavailabl e Allergies Active Allergy Reactions Criticality Noted Date Comments Bee Venom Itching 03/24/2023 Onia-Containing Products Anaphylaxis High 03/24/2023 Morphine Hallucinations 03/24/2023 Medications PARoxetine (PAXIL) 10 MG tablet Take 10 mg by mouth 1 (one) time each day in the morning Active ondansetron (ZOFRAN) 4 MG tablet Take 4 mg by mouth 1 (one) time each day Active sucralfate (CARAFATE) 1 g tablet Take 1 g by mouth 4 (four) times a day (before meals and nightly) Active albuterol HFA (PROVENTIL HFA) 108 (90 Base) MCG/ACT inhaler Inhale 2 puffs every 6 (six) hours if needed for wheezing Active dicyclomine (BENTYL) 10 MG capsule Take 10 mg by mouth 4 (four) times a day if needed Active zonisamide (ZONEGRAN) 25 MG capsule Take 25 mg by mouth 1 (one) time each day in the evening Active lamoTRIgine (LaMICtal) 150 MG tablet Take 150 mg by mouth in the morning and 150 mg in the evening. Active Active Problems Problem Noted Date Diagnosed Date Hypercalcemia 03/25/2023 Renal stone 03/25/2023 Resolved Problems Problem Noted Date Diagnosed Date Resolved Date Polycystic ovarian syndrome 04/30/2023 06/06/2023 Abdominal pain 03/24/2023 06/06/2023 Family History Medical History Relation Comments Cancer Maternal Grandfather Heart disease Maternal Grandfather Cancer Mother Heart disease Mother Heart disease Mother's Brother Relation Status Comments Maternal Grandfather Alive Mother Mother's Brother Alive Social History Tobacco Use Types Packs/Day Years Used Date Smoking Tobacco: Former Cigarettes 0.3 15 0 06/24/2006 - 06/24/2021 Smokeless Tobacco: Never Alcohol Use Standard Drinks/Week Comments Not Currently 0 (1 standard drink = 0.6 oz pur e alcohol) Comments Unknown Sex and Gender Information Value Date Recorded Sex Assigned at Not on file Legal Sex Female 9:50 AM [facility] Gender Identity Not on file Sexual Orientation Not on file Last Filed Vital Signs Vital Sign Reading Time Taken Comments Blood Pressure 115/76 04/30/2023 4:21 PM DENTAL OFFICE RECEPTIONIST Pulse 98 04/30/2023 4:21 PM DENTAL OFFICE RECEPTIONIST Temperature - - Respiratory Rate - - Oxygen Saturation - - Inhaled Oxygen Concentration - - Weight 64 kg (141 lb) 04/30/2023 4:21 PM DENTAL OFFICE RECEPTIONIST Height 162.6 cm (5' 4) 04/30/2023 4:21 PM DENTAL OFFICE RECEPTIONIST Body Mass Index 24.2 04/30/2023 4:21 PM DENTAL OFFICE RECEPTIONIST Plan of Treatment Upcoming Encounters Date Type Department Care Team ([facility] st Contact Info) Description 01/05/2025 1:00 PM DENTAL OFFICE RECEPTIONIST Office Visit [facility] [address] [facility] [address] [place], [place] [id number] Daniel Tai MD [address] [address] Health Maintenance Due Date Last Done Comments Pneumococcal PPSV23 Highest Risk Adult (1 of 3 - PCV13 ) 2008 Influenza Vaccine (#1) [address] [place] [address]/[employer]
--- OUTSIDE RECORDS SUMMARY | 2024-10-23 12:48 | XMS_ITS | Clinical Summary ---
Author Organization [facility] Address [facility] [place] [address] Care Team Providers Care Hand Assembler Name Role Phone Truman Welch MD Primary Care Provider [phone] Allergies Active Allergy Reactions Criticality Noted Date Comments Zolpidem Mental status changes Low 06/23/2023 Daisetta Containing Products Anaphylaxis High 03/24/2023 Canned corn...I'm [...] (04/15/2023): Added automatically from request for surgery [id number] Early satiety 07/02/2022 Overview (04/15/2023): Added automatically from request for surgery [id number] Esophageal dysphagia 07/02/2022 Overview (04/15/2023): Added automatically from request for surgery [id number] Generalized abdominal pain 07/02/2022 Overview (04/15/2023): Added automatically from request for surgery [id number] Irregular bowel habits 07/02/2022 Overview (04/15/2023): Added automatically from request for surgery [id number] Nausea and vomiting 07/02/2022 Overview (04/15/2023): Added automatically from request for surgery [id number] Elevated pulse rate 06/26/2022 Light headedness 06/26/2022 Palpitations 06/26/2022 Shortness of breath 06/26/2022 PCOS (polycystic ovarian syndrome) 05/02/2022 Right wrist pain 03/19/2021 Cervical low risk human josselyn llomavirus (HPV) DNA test positive 06/16/2017 Overview (04/15/2023): Cervical low risk HPV DNA test positive;Recorded Elsewhere: No Location: [facility] Source: EHR Chronic: N Practice ID: 0001 Billable Time: 03:00:00 PM Bleeding 12/02/2016 Overview (04/15/2023): Abnormal uterine bleeding;Recorded Elsewhere: No Location: [facility] Source: EHR Chronic: N Practice ID: [...] blood cell count, unspecified;Recorded Elsewhere: No Location: [facility] Source: EHR Chronic: N Practice ID: 0001 Billable Time: 02:15:00 PM Pelvic and perineal pain 06/24/2016 Overview (04/15/2023): Pelvic pain;Recorded Elsewhere: No Location: [facility] Source: EHR Chronic: N Practice ID: 0001 Billable Time: 03:15:00 PM Cardiac arrhythmia 06/05/2016 Overview (04/15/2023): Premature contractions;Recorded Elsewhere: No Location: [facility] Source: EHR Chronic: N Practice ID: 0001 Billable Time: 02:30:00 PM Papanicolaou smear of anus w ith low grade squamous intraepithelial lesion (LGSIL) 04/03/2016 Overview (04/15/2023): Low grade intrepith lesion cyto smr anus (LGSIL);Recorded Elsewhere: No Location: [facility] Source: EHR Chronic: N Practice ID: 0001 Billable Time: 02:00:00 PM Amenorrhea 03/27/2016 Overview (04/15/2023): Amenorrhea;Recorded Elsewhere: No Location: [facility] Source: EHR Chronic: N Practice ID: 0001 Billable Time: 03:30:00 PM H/O delivery, currently 015 Previous delivery, antepartum condition or complication 02/10/2015 Acute upper respiratory infection 01/26/2013 Overview (04/15/2023): Upper Respiratory Infection, Acute;Recorded Elsewhere: No Location: [facility] Source: EHR Chronic: N Practice ID: 0001 Billable Time: 01:00:00 PM Congenital malformation 01/14/2013 Overview (04/15/2023): screening for malformation using ultrasonics;Recorded Elsewhere: No Location: [facility] Source: EHR Chronic: N Practice ID: 0001 Billable Time: 02:45:00 PM Uterine size-date discrepancy 12/17/2012 Overview (04/15/2023): UTERINE SIZE ERI-ANTEPAR;Recorded Elsewhere: No Location: [facility] Source: EHR Chronic: N Practice ID: [...] 06/05/2016 Premature con tractions;Recorded Elsewhere: No Location: [facility] Source: EHR Chronic: N Practice ID: [...] on file Legal Sex Female 7:50 PM DELI ASSOCIATE Gender Identity Female 07/07/2021 12:17 PM CDT Sexual Orientation Not on file Obstetrics History Last Filed Vital Signs Vital Sign Reading Time Taken Comments Blood Pressure 98/85 03/02/2024 3:00 PM DELI ASSOCIATE Pulse 80 03/02/2024 3:00 PM DELI ASSOCIATE Temperature 36.7 C (98 F) 03/02/2024 1:35 PM DELI ASSOCIATE Respiratory Rate 16 03/02/2024 3:00 PM DELI ASSOCIATE Oxygen Saturation 97% 03/02/2024 3:00 PM DELI ASSOCIATE Inhaled Oxygen Concentration - - Weight 87.8 kg (193 lb 8 oz) 03/02/2024 10:21 AM DELI ASSOCIATE Height 162.6 cm (5' 4) 03/02/2024 10:21 AM DELI ASSOCIATE Body Mass Index 33.21 03/02/2024 10:21 AM DELI ASSOCIATE Plan of Treatment Health Maintenance Due Date [...] age to complete this topic Insurance [facility] Care Teams Hand Assembler Relationship Specialty Start Date End Date Truman Welch MD PCP - General Emergency Medicine 08/08/22
--- OUTSIDE RECORDS SUMMARY | 2024-10-23 12:48 | XMS_ITS | Clinical Summary ---
Author Organization [facility] Address [address] [facility] [place] [address] Care Team Providers Care Booking Officer Name Role Phone Truman Welch MD Primary Care Provider [phone] [facility],non-owned Affiliates and Associated Physician Practices is amultiple site organization consisting of ambulatory clinics and hospital sitesin [place], [place], [place] and [place]. This disclosure is being madepursuant to the Care Everywhere program and may not contain all information available regarding this patient. Last updated [facility] Allergies Active Allergy Reactions Criticality Noted Date [...] original. 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 3 07/24/2022 Dyspepsia 07/02/2022 07/24/2022 Overview (07/24/2022): Added automatically from request for surgery [id number] Early satiety 07/02/2022 07/24/2022 Overview (07/24/2022): Added automatically from request for surgery [id number] Esophageal dysphagia 07/02/2022 07/24/2022 Overview (07/24/2022): Added automatically from request for surgery [id number] Generalized abdominal pain 07/02/202207/24 Overview (07/24/2022): Added automatically from request for surgery [id number] Irregular bowel habits 07/02/2022 Overview (07/24/2022): Added automatically from request for surgery [id number] Nausea and vomiting 07/02/2022 07/24/2022 Overview (07/24/2022): Added automatically from request for surgery [id number] Elevated pulse rate 06/26/2022 07/24/2022 Light headedness 06/26/2022 07/24/2022 Palpitations 06/26/2022 07/24/2022 Shortness of breath 06/26/2022 07/24/2022 PCOS (polycystic ovarian syndrome) 05/02/2022 07/24/2022 Right wrist pain 03/19/2021 07/24/2022 Low-risk human papillomaviru s (HPV) DNA detected in cervical specimen 06/16/2017 11/26/2022 Overview (11/26/2022): Cervical low risk HPV DNA test positive;Recorded Elsewhere: No Location: [facility] Source: EHR Chronic: N Practice ID: 0001 Billable Time: 03:00:00 PM Cervical low risk HPV DNA test positive;Recorded Elsewhere: No Location: [facility] Source: EHR Chronic: N Practice ID: 0001 Billable Time: 03:00:00 PM Bleeding 12/02/2016 11/26/2022 Overview (11/26/2022): Abnormal uterine bleeding;Recorded Elsewhere: No Location: [facility] Source: EHR Chronic: N Practice ID: 0001 Billable Time: 02:15:00 PM Single liveborn, born in [facility], delivered by delivery 08/15/2016 11/26/2022 Overview (11/26/2022): Single liveborn infant delivered by c section;Recorded Elsewhere: No Location: [facility] Source: EHR Chronic: N Practice ID: [id number] [...] blood cell count, unspecified;Recorded Elsewhere: No Location: [facility] Source: EHR Chronic: N Practice ID: 0001 Billable Time: 02:15:00 PM Pelvic and perineal pain 06/24/2016 023 Overview (11/26/2022): Pelvic pain;Recorded Elsewhere: No Location: [facility] Source: EHR Chronic: N Practice ID: [id number] [...] normal , first trimester;Recorded Elsewhere: No Location: [facility] Source: EHR Chronic: N Practice ID: 0001 Billable Time: 02:00:00 PM Amenorrhea 03/27/2016 11/26/2022 Overview (11/26/2022): Amenorrhea;Recorded Elsewhere: No Location: [facility] Source: EHR Chronic: N Practice ID: 0001 Billable Time: 03:30:00 PM H/O delivery, currently 015 Previous delivery, antepartum condition or complication 02/10/2015 Congenital malformation 01/14/2013 11/27/19 Overview (11/26/2022): screening for malformation using ultrasonics;Recorded Elsewhere: No Location: [facility] Source: EHR Chronic: N Practice ID: 0001 Billable Time: 02:45:00 PM Uterine size-date discrepancy 12/17/2012 Overview (11/26/2022): UTERINE SIZE ERI-ANTEPAR;Recorded Elsewhere: No Location: [facility] Source: EHR Chronic: N Practice ID: 0001 Billable Time: 01:30:00 PM test negative 09/17/2012 11/27/19 Overview (11/26/2022): examination or test, negative result;Recorded Elsewhere: No Location: [facility] Source: EHR Chronic: N Practice ID: 0001 [...] of normal first ;Recorded Elsewhere: No Location: [facility] Source: EHR Chronic: N Practice ID: 0001 [...] weeks gestation of ;Recorded Elsewhere: No Location: [facility] Source: EHR Chronic: N Practice ID: 0001 Billable Time: 03:30:00 PM IUGR, 07/06/2015 07/24/2016 Small for gestational age 0406/15/2015 Tobacco use in 03/27/2015 Encounter for (NT) nuchal translucency scan 02/21/2015 07/24/2016 Acute upper respiratory infection 01/26/2013 023 12/10/2022 Overview (11/26/2022): Upper Respiratory Infection, Acute;Recorded Elsewhere: No Location: [facility] Source: EHR Chronic: N Practice ID: [id number] [...] on file Legal Sex Female 2:01 PM SHOP COOPER Gender Identity Not on file Sexual Orientation Not on file Last Filed Vital Signs Vital Sign Reading Time Taken Comments Blood Pressure 128/85 05/04/2024 2:55 PM CDT Pulse 121 05/04/2024 2:55 PM CDT Temperature 36.4 C (97.5 F) 02/10/2024 12:12 AM SHOP COOPER Respiratory Rate 18 02/10/2024 12:12 AM SHOP COOPER Oxygen Saturation 98% 05/04/2024 2:55 PM CDT Inhaled Oxygen Concentration - - Weight 90.9 kg (200 lb 8 oz) 05/04/2024 2:55 PM CDT Height 162.6 cm (5' 4) 05/04/2024 2:55 PM CDT Body Mass Index 34.42 05/04/2024 2:55 PM CDT Plan of Treatment Upcoming Encounters Date Type Department Care Team (Late st Contact Info) Description 01/26/2025 2:00 PM SHOP COOPER Office Visit [facility] [address] [facility], [facility] [place] [id number] Юлия Pichardo, REGISTERED NURSE RENAL-TEACHER VOCAL [address] [place] [phone] Health Maintenance Due Date Last Done Comments [...] patient's age to complete this topic Insurance [facility] Advance Directives * Full Code (Latest Code [...] 2:59 PM 08/12/2016 4:42 PM Care Teams Booking Officer Relationship Specialty Start Date End Date Truman Welch MD [address] [place] [id number] PCP - General 06/25/22
[2024-10-23] MEDS: SODIUM CHLORIDE 0.9% IV 1,000 ML 999 ML IV CONT (12:53)
[2024-10-23] MEDS: ONDANSETRON INJ 4 MG/2 ML VIAL IV PUSH (12:54)
[2024-10-23] MEDS: KETOROLAC 30 MG/ML VIAL (*BKC) IV PUSH (12:54)
[2024-10-23 13:05] LABS: Hematocrit 36.5 % (37.0-47.0); Hemoglobin 11.2 g/dL (12.0-15.0); Immature Granulocyte Percent A 0.3 % (0-0.5); Lymphocytes Absolute Auto 1.88 K/mm3 (0.9-3.2); Mean Corpuscular HGB Conc 30.7 g/dl (32-36); Mean Corpuscular Hemoglobin 24.9 pg (26-34); Mean Corpuscular Volume 81.1 fl (80-100); Nucleated Red Blood Cells Absolute Auto 0.000 K/mm3 (0.0-0.012); Nucleated Red Blood Cells Perc 0.0 % (0.0-0.2); Platelet Count Result 311 k/mm3 (150-375); Red Blood Count 4.50 M/mm3 (4.2-5.4); White Blood Count 7.5 K/mm3 (4.5-10.0)
[2024-10-23 13:20] LABS: Alanine Aminotransferase 29 U/L (6-35); Albumin Level 4.2 g/dL (3.5-5.1); Alkaline Phosphatase 79 U/L (38-126); Anion Gap 12 mmol/L (4-12); Aspartate Amino Transferase 31 U/L (14-36); Bilirubin,Total 0.1 mg/dL (0.2-1.3); Blood Urea Nitrogen 11 mg/dL (7-17); Calcium 8.9 mg/dL (8.4-10.2); Carbon Dioxide 22 mmol/L (22-30); Chloride 104 mmol/L (98-107); Estimated Glomerular Filt Rate > 60; Glucose 191 mg/dL (65-110); Potassium 3.6 mmol/L (3.4-5.0); Sodium 138 mmol/L (137-145); Total Protein 7.6 g/dL (6.3-8.2)
[2024-10-23 13:42] LABS: Add Urine Microscopic? YES; Appearance Urine Cloudy (Clear); Glucose Urine UA Negative (Negative); Leukocyte Esterase Ur Negative LEU/UL (Negative); Need Manual Microscopic Reviewed; Nitrate Urine Negative (Negative); Non Pathogenic Casts 0-2; Specific Grav Ur 1.025 (1.001-1.035)
[2024-10-23 14:30] VITALS: BP 110/80; PULSE 80; RESP 16; O2SAT 99
--- NOTE | 2024-10-23 16:14 | ED.GENADULT ---
HPI - General Adult General Chief complaint: Urogenital-Female Stated complaint: i feel very weak Time Seen by Provider: 10/23/24 12:20 History of Present Illness HPI narrative: Patient is a 34-year-old female who presents the ER with reports of possible kidney infection. Reports left-sided flank pain ongoing for several days. She began having urinary frequency and dysuria this morning. No fevers or chills. She is without any abdominal pain. No alleviating factors at home. Related Data Home Medications ?Medication ?Instructions ?Recorded ?Confirmed ?Last Taken ?Type lamotrigine 200 mg tablet 200 mg PO DAILY 10/16/23 10/16/23 Unknown History paroxetine HCl 30 mg tablet 30 mg PO DAILY 10/16/23 10/16/23 Unknown History Allergies Allergy/AdvReac Type Severity Reaction Status Date / Time bee venom protein (honey bee) Allergy Mild Swelling Verified 10/17/23 13:04 corn Allergy Unknown Rash/THROAT Verified 10/17/23 13:04 SWELLING morphine AdvReac Other Verified 10/17/23 13:04 zolpidem (From Ambien) AdvReac Hallucinati Verified 10/17/23 13:04 ng Review of Systems Review of Systems: All systems reviewed & are unremarkable except as noted in HPI and below Constitutional: Constitutional: Reports no additional constitutional complaints Cardiovascular: Cardiovascular: Reports no additional cardiovascular complaints Respiratory: Respiratory: Reports no additional respiratory complaints Gastrointestinal: Gastrointestinal: Reports no additional gastrointestinal complaints Genitourinary: Genitourinary: Reports no additional female genitourinary complaints PMFSH Past Medical History Medical History ADHD Anxiety and depression Depression History of blood transfusion IBS (irritable bowel syndrome) Kidney stones Ovarian cyst hemorrhage UTI (urinary tract infection) Surgical History Surgical History History of section History of right salpingo-oophorectomy History of tubal ligation Hx of hand surgery tendon repair left hand S/P laparoscopic hysterectomy Family History Family History Grandparent Cancer lung grandfather Social History Social History Smoking packs per day: 1 Smoking cigarettes per day: 20.0 Years smoked: 14 Smoking pack-years: 14.00 Smoking status: Current every day smoker Tobacco type: cigarettes Second hand tobacco smoke exposure: Yes Additional smoking assessment comments: 1/2ppd x 14 years Alcohol intake: former Alcohol use details: VERY RARE Substance use: current Substance use type: marijuana Other substance usage details: daily smoking Last use: 07/03/20 Living arrangements: with family Gender identity (if verbalized by the patient): Female Spiritual care concerns: No Exam Narrative: GENERAL: Well-appearing, well-nourished, and in no acute distress. HEAD: Normocephalic, atraumatic. ENT: Mucous membranes moist. CHEST: Clear to auscultation. No respiratory distress. HEART: Regular rate and rhythm. Normal peripheral pulses. ABDOMEN: Soft, nontender, nondistended. Mild tenderness with percussion left flank, no tenderness on the right. EXTREMITIES: Normal range of motion. No edema. SKIN: Warm, dry, no rash. NEURO: Alert and oriented x3. PSYCH: Normal mood and affect. Course Course Emergency Course: Urinalysis cloudy with many squamous epithelial cells and 1+ bacteria and 6-10 white blood cells. This is consistent with contamination my opinion. CMP and CBC are without significant abnormality other than a mild anemia with hemoglobin being 11.2. CT scan showed no acute abnormalities and no obstructing renal stones or inflammatory changes. Patient happy with the results. She feels she will have to go elsewhere for care. Discussed we are sorry that she feels this way but there will be no additional workup that we can provide at this time. I will give her pain medication for home as is likely musculoskeletal in nature. Vital Signs Vital signs: Vital Signs Temperature 98.2 F 10/23/24 12:30 Pulse Rate 100 10/23/24 12:30 Respiratory Rate 16 10/23/24 12:30 Blood Pressure 136/81 10/23/24 12:30 Pulse Oximetry 100 10/23/24 12:30 Oxygen Delivery Room Air 10/23/24 12:30 Temperature 98.2 F 10/23/24 12:30 Pulse Rate 100 10/23/24 12:30 Respiratory Rate 16 10/23/24 12:30 Blood Pressure 136/81 10/23/24 12:30 Pulse Oximetry 100 10/23/24 12:30 Oxygen Delivery Room Air 10/23/24 12:30 Medical Decision Making Vital Signs Vital Signs: Vital Signs Temperature 98.2 F 10/23/24 12:30 Pulse Rate 100 10/23/24 12:30 Respiratory Rate 16 10/23/24 12:30 Blood Pressure 136/81 10/23/24 12:30 Pulse Oximetry 100 10/23/24 12:30 Oxygen Delivery Room Air 10/23/24 12:30 Temperature 98.2 F 10/23/24 12:30 Pulse Rate 100 10/23/24 12:30 Respiratory Rate 16 10/23/24 12:30 Blood Pressure 136/81 10/23/24 12:30 Pulse Oximetry 10/23/24 12:30 Oxygen Delivery Room Air 10/23/24 12:30 Lab Data 10/23/24 12:58 10/23/24 12:58 Labs: Lab Results 10/23/24 10/23/24 Range/Units 12:58 13:26 WBC 7.5 (4.5-10.0) K/mm3 RBC 4.50 (4.2-5.4) M/mm3 Hgb 11.2 L (12.0-15.0) g/dL Hct 36.5 L (37.0-47.0) % MCV 81.1 (80-100) fl MCH 24.9 L (26-34) pg MCHC 30.7 L (32-36) g/dl RDW 14.8 H (11.5-14.5) % Plt Count 311 (150-375) k/mm3 MPV 8.7 (7.4-10.4) fl Immature Gran % (Auto) 0.3 (0-0.5) % Neut % (Auto) 68.0 (45.5-73.1) % Lymph % (Auto) 25.1 (18.3-44.2) % Mcmullen % (Auto) 4.1 (2.6-8.5) % Eos % (Auto) 2.1 (0-4.4) % Baso % (Auto) 0.4 (0.2-1.2) % Lymph # (Auto) 1.88 (0.9-3.2) K/mm3 Mcmullen # (Auto) 0.3 (0.1-0.6) K/mm3 Eos # (Auto) 0.2 (0-0.3) K/mm3 Baso # (Auto) 0.0 (0.0-0.1) K/mm3 Abs Immat Gran (auto) 0.02 (0.00-0.031) K/mm3 Absolute Neuts (auto) 5.1 (1.3-6.7) K/mm3 Absolute Nucleated RBC 0.000 (0.0-0.012) K/mm3 Nucleated RBC % 0.0 (0.0-0.2) % Sodium 138 (137-145) mmol/L Potassium 3.6 (3.4-5.0) mmol/L Chloride 104 (98-107) mmol/L Carbon Dioxide 22 (22-30) mmol/L Anion Gap 12 (4-12) mmol/L BUN 11 D (7-17) mg/dL Creatinine 0.71 (0.7-1.0) mg/dL Estim Creat Clear Calc Not Reportable Estimated GFR > 60 (59 - ) Glucose 191 H (65-110) mg/dL Calcium 8.9 (8.4-10.2) mg/dL Total Bilirubin 0.1 L (0.2-1.3) mg/dL AST 31 (14-36) U/L ALT 29 (6-35) U/L Alkaline Phosphatase 79 (38-126) U/L Total Protein 7.6 (6.3-8.2) g/dL Albumin 4.2 (3.5-5.1) g/dL Urine Color Yellow (Yellow) Urine Appearance Cloudy H (Clear) Urine pH 5.5 (5.0-9.0) Ur Specific [place] 1.025 (1.001-1.035) Urine Protein Negative (Negative) mg/dL Urine Glucose (UA) Negative (Negative) mg/dL Urine Ketones Trace H (Negative) mg/dL Ur Blood (Man) Negative (Negative) Urine Nitrate Negative (Negative) Urine Bilirubin Negative (Negative) Urine Urobilinogen 0.2 (<2.0) mg/dL Add Ur Microanalysis Reviewed Leukocyte Esterase Rfl Negative (Negative) KAMALJIT/UL Urine RBC 0-2 (0-2) /hpf Urine WBC 6-10 H (0-3) /hpf Ur Squamous Epith Cells Many H (Few) /hpf Urine Bacteria 1+ H /hpf Urine Casts 0-2 Urine Mucus Present /lpf Imaging Data Radiologist's impression: ITS Impressions Abdomen/Pelvis CT 10/23/24 14:15 IMPRESSION: 1. No etiology identified to explain the patient's symptoms. Follow-up suggested if symptoms persist. Discharge Plan Discharge Clinical Impression: Left flank pain Patient Disposition: Home Condition: Stable Instructions: Flank Pain (ED) Additional Instructions: There is no evidence of kidney infection on lab work or imaging studies. Your pain may be musculoskeletal in nature. Please return to the emergency department if you develop severe pain that is not controlled by pain medications or if you are unable to walk because of pain or weakness. Return to the emergency department immediately if you develop fevers, loss of bowel or bladder control (dribbling of urine or having accidents you wouldn't normally have), inability to urinate, numbness of your genital or anal area, or weakness/numbness of your legs or arms as these could all be signs of a serious medical emergency. Patient Language: Polish Prescriptions: New cyclobenzaprine 10 mg tablet 10 mg PO TID PRN (Reason: muscle spasm) Qty: 20 0RF naproxen 375 mg tablet 375 mg PO BID Qty: 14 0RF No Action lamotrigine 200 mg tablet 200 mg PO DAILY paroxetine HCl 30 mg tablet 30 mg PO DAILY clindamycin HCl 300 mg capsule 300 mg PO TID 10 Days Qty: 30 0RF prednisone 20 mg tablet 20 mg PO DAILY Qty: 7 0RF cyclobenzaprine 10 mg tablet 10 mg PO TID PRN (Reason: muscle spasm) Qty: 20 0RF naproxen 375 mg tablet 375 mg PO BID Qty: 14 0RF ondansetron 4 mg tablet,disintegrating 4 mg PO Q6H PRN (Reason: nausea and vomiting) Qty: 10 0RF Follow-up/Referrals: Truman Welch MD [Primary Care Provider, Family Practice] - 1 Week
[2024-10-23 16:30] VITALS: BP 107/64; PULSE 80; RESP 16; O2SAT 99
== END 2024-10-23 16:50 | disposition home or self-care (01) ==
PROVIDERS: Emergency Provider Emergency Medicine; PCP Emergency Medicine
DX: R10.9 Unspecified abdominal pain (principal); K58.9 Irritable bowel syndrome, unspecified; F41.9 Anxiety disorder, unspecified; F32.A Depression, unspecified; F90.9 Attention-deficit hyperactivity disorder, unspecified type; F17.210 Nicotine dependence, cigarettes, uncomplicated; Z87.442 Personal history of urinary calculi; Z87.440 Personal history of urinary (tract) infections; Z90.79 Acquired absence of other genital organ(s); Z90.721 Acquired absence of ovaries, unilateral; Z79.899 Other long term (current) drug therapy
CPT/HCPCS: 36415; 74176; 80053; 81001; 85025; 96361; 96374; 96375; 99284; J1885; J2405; J7030